=== PATIENT | male | born 1970 | race American Indian/Alaskan Native ===

== ENCOUNTER 2020-07-22 06:34 | Outpatient (REF) | payer BC, SELFPAY ==
[2020-07-22 07:27] LABS: MANUAL DIFF FLAG NO
[2020-07-22 07:38] LABS: Glucose Urine UA NEG (NEG); Leukocyte Esterase Urine NEG (NEG); Nitrite Urine NEG (NEG); PH 5.5 (5.0-8.0); Specific Gravity - Urine >= 1.030 (1.005-1.025); Urine Blood NEG (NEG); Urine Ketones NEG (NEG); Urine Protein NEG (NEG-TRACE)
[2020-07-22 07:44] LABS: Appearance Urine HAZY; Color Urine YELLOW; UACC Culture Trigger NO
[2020-07-22 07:55] LABS: Mucus Urine 2+ /LPF; RBC Urine 0 /HPF (0); Squamous Epithelial Cell Urine TRACE /LPF; WBC Urine 0 /HPF (0-4)
[2020-07-22 07:57] LABS: Alanine Aminotransferase 28 U/L (0-40); Albumin Level 4.2 g/dL (3.5-5.0); Alkaline Phosphatase 85 U/L (39-117); Anion Gap 11 (12-20); Aspartate Amino Transferase 14 U/L (5-37); Bilirubin Total 0.6 mg/dL (0.0-1.0); Blood Urea Nitrogen 17 mg/dL (9-16); Calcium 8.6 mg/dL (8.4-10.2); Carbon Dioxide 24 mmol/L (22-29); Chloride 107 mmol/L (96-108); Cholesterol 164 mg/dL; Estimated Glomerular Filt Rate > 60; Glucose Fasting 133 mg/dL (60-99); HDL Cholesterol 34 mg/dL; LDL Cholesterol Calculated 85 mg/dl; Potassium 4.2 mmol/l (3.3-5.1); Sodium 138 mmol/L (135-145); Total Protein 6.2 g/dL (6.5-8.0); Triglycerides 229 mg/dL
[2020-07-22 07:58] LABS: Basophils Absolute Auto 0.1 X10*3/uL (0.0-0.2); Basophils Percent Auto 0.7 % (0-2); Eosinophils Absolute Auto 0.1 X10*3/uL (0.0-0.4); Eosinophils Percent Auto 1.9 % (0-4); Hemoglobin 15.9 g/dl (14.0-18.0); Imm Gran Abs Auto 0.02 X10*3/uL (0.00-0.03); Imm Gran Pct Auto 0.3 % (0.0-0.4); Lymphocytes Absolute Auto 2.1 X10*3/uL (1.2-4.9); Mean Corpuscular HGB Conc 33.8 g/dl (31.0-36.0); Mean Corpuscular Volume 94.6 fL (80-98); Mean Platelet Volume 9.8 fL (9.4-12.4); Monocytes Absolute Auto 0.7 X10*3/uL (0.1-1.2); Neutrophils Absolute Auto 4.4 X10*3/uL (2.0-8.3); Neutrophils Percent Auto 59.1 % (45-73); Platelet Count 256 X10*3/uL (160-400); Red Blood Count 4.97 X10*6/uL (4.60-5.80); Red Cell Distribution Width 11.9 % (11.0-16.0); White Blood Count 7.4 X10*3/uL (4.8-10.8)
[2020-07-22 08:19] LABS: Vitamin D 25-OH Total 28.8 ng/mL (>30)
[2020-07-22 21:34] LABS: Folate 14.7 ng/mL (> or = 4.0); Vitamin B12 834 pg/mL (200-900)
== END 2020-07-22 06:35 | disposition home or self-care (01) ==
LOC: HO.LAB 06:34
PROVIDERS: PCP Internal Medicine; Visit Provider Internal Medicine
DX: I10 Essential (primary) hypertension (principal); E78.00 Pure hypercholesterolemia, unspecified; R73.01 Impaired fasting glucose; R20.2 Paresthesia of skin; N20.0 Calculus of kidney; E55.9 Vitamin D deficiency, unspecified
CPT/HCPCS: 36415; 80053; 80061; 81001; 81003; 82306; 82607; 82746; 85025

== ENCOUNTER 2020-09-07 08:14 | Outpatient (REF) | payer BC, SELFPAY ==
--- NOTE | 2020-09-07 08:19 | EMG_ITS ---
HISTORY OF PRESENT ILLNESS: This is a 50-year-old man with 6-month history of bilateral upper extremity pain, numbness, and tingling. MEDICATIONS: List of medications not known. PHYSICAL EXAMINATION: On examination, he is alert and oriented with normal intellectual functions. His cranial nerves II through XII are normal. Muscle tone and strength are normal. Deep tendon reflexes symmetrical, 2+ plantar response are flexor. There is mild weakness and atrophy of the thenar eminences. IMPRESSION: Bilateral carpal tunnel syndrome. Nerve conduction EMG: Moderately severe carpal tunnel syndrome bilaterally, slightly worse on the right. Normal EMG of the right C5-T1 innervated muscles except for slight chronic denervated changes in the abductor pollicis brevis consistent with chronic median neuropathy. MD SARAH Calvin/NORRIS / [id number]
== END 2020-09-07 08:15 | disposition home or self-care (01) ==
LOC: HO.NEURO 08:14
PROVIDERS: PCP Internal Medicine; Visit Provider Internal Medicine
DX: R20.2 Paresthesia of skin (principal)
CPT/HCPCS: 95860; 95886; 95913

== ENCOUNTER 2020-11-30 06:53 | Outpatient (REF) | payer BC, SELFPAY ==
[2020-11-30 07:34] LABS: MANUAL DIFF FLAG NO
[2020-11-30 07:36] LABS: Basophils Percent Auto 0.4 % (0-2); Eosinophils Absolute Auto 0.1 X10*3/uL (0.0-0.4); Hematocrit 45.4 % (42-52); Hemoglobin 15.8 g/dl (14.0-18.0); Imm Gran Abs Auto 0.01 X10*3/uL (0.00-0.03); Imm Gran Pct Auto 0.1 % (0.0-0.4); Lymphocytes Absolute Auto 2.2 X10*3/uL (1.2-4.9); Lymphocytes Percent Auto 29.1 % (20-40); Mean Corpuscular HGB Conc 34.8 g/dl (31.0-36.0); Mean Corpuscular Hemoglobin 31.9 pg (27.0-33.0); Mean Corpuscular Volume 91.5 fL (80-98); Mean Platelet Volume 9.5 fL (9.4-12.4); Monocytes Absolute Auto 0.7 X10*3/uL (0.1-1.2); Monocytes Percent Auto 9.4 % (2-11); Neutrophils Absolute Auto 4.6 X10*3/uL (2.0-8.3); Platelet Count 261 X10*3/uL (160-400); Red Blood Count 4.96 X10*6/uL (4.60-5.80); White Blood Count 7.7 X10*3/uL (4.8-10.8)
[2020-11-30 07:56] LABS: Glucose Urine UA NEG (NEG); Leukocyte Esterase Urine NEG (NEG); Nitrite Urine NEG (NEG); PH 5.5 (5.0-8.0); Specific Gravity - Urine >= 1.030 (1.005-1.025); Urine Blood TRACE (NEG); Urine Ketones NEG (NEG); Urine Protein NEG (NEG-TRACE)
[2020-11-30 08:09] LABS: Alanine Aminotransferase 32 U/L (0-40); Albumin Level 4.2 g/dL (3.5-5.0); Alkaline Phosphatase 91 U/L (39-117); Anion Gap 13 (12-20); Aspartate Amino Transferase 18 U/L (5-37); Bilirubin Total 0.8 mg/dL (0.0-1.0); Blood Urea Nitrogen 17 mg/dL (9-16); Calcium 8.6 mg/dL (8.4-10.2); Carbon Dioxide 23 mmol/L (22-29); Chloride 106 mmol/L (96-108); Cholesterol 166 mg/dL; Estimated Glomerular Filt Rate > 60; Glucose Fasting 135 mg/dL (60-99); HDL Cholesterol 36 mg/dL; LDL Cholesterol Calculated 83 mg/dl; Sodium 138 mmol/L (135-145); Total Protein 6.4 g/dL (6.5-8.0); Triglycerides 239 mg/dL
[2020-11-30 08:20] LABS: Appearance Urine CLEAR; Color Urine YELLOW
[2020-11-30 08:25] LABS: Vitamin D 25-OH Total 28.1 ng/mL (>30)
[2020-11-30 09:10] LABS: RBC Urine 0-2 /HPF (0); WBC Urine 0-2 /HPF (0-4)
[2020-11-30 09:47] LABS: Vitamin B12 1476 pg/mL (200-900)
== END 2020-11-30 06:54 | disposition home or self-care (01) ==
LOC: HO.LAB 06:53
PROVIDERS: Visit Provider Internal Medicine
DX: E55.9 Vitamin D deficiency, unspecified (principal); R20.2 Paresthesia of skin; E66.3 Overweight; E78.00 Pure hypercholesterolemia, unspecified; R73.01 Impaired fasting glucose; I10 Essential (primary) hypertension; N20.0 Calculus of kidney; R31.21 Asymptomatic microscopic hematuria
CPT/HCPCS: 36415; 80053; 80061; 81001; 81003; 82306; 82607; 82746; 84443; 85025

== ENCOUNTER 2020-12-13 15:00 | Outpatient (REF) | payer BC, SELFPAY ==
--- NOTE | ~2020-12-13 | MR_ITS ---
EXAMINATION: MR ABDOMEN WITHOUT AND WITH CONTRAST CLINICAL INFORMATION: Follow-up pancreatic cyst COMPARISON: Previous abdominal MRI September 2019 TECHNIQUE: MR abdomen was performed without and with use of 8.5 mL intravenous Gadavist gadolinium contrast. Postcontrast images are performed in multiphase dynamic sequences. Imaging was performed in 3 planes. MRCP sequences were also performed. FINDINGS: LUNG BASES: The visualized lung bases are unremarkable. LIVER, GALLBLADDER, AND BILIARY TREE: The liver is normal in size and shape. There is mild signal loss in the liver on out of phase sequences suggestive of fatty infiltration. No focal liver lesion is seen. The gallbladder is normal. There is no intra or extrahepatic biliary duct dilatation. PANCREAS: There is a 6 x 10 mm cyst in the head of the pancreas. This demonstrates no evidence of enhancement or solid component. This is similar to previous exam. Pancreas is otherwise normal. The pancreas is normal in signal and demonstrates normal enhancement. The main pancreatic duct does not appear dilated. SPLEEN: Normal. ADRENAL GLANDS: Normal. KIDNEYS AND URETERS: There is a small left renal cyst. The kidneys are otherwise unremarkable. GASTROINTESTINAL TRACT: Diverticulosis of the colon. No bowel obstruction. No ascites or fluid collection. ABDOMINAL WALL: No significant hernia is appreciated. LYMPH NODES: No lymphadenopathy. VASCULAR: Unremarkable. OSSEOUS STRUCTURES: Marrow signal normal. There is degenerative disc changes of the thoracic and lumbar spine. MR/MR abdomen wo/w con IMPRESSION: Stable 6 x 10 mm cyst in the head of the pancreas from previous exam. Differential would include a simple pancreatic cyst, pseudocyst and IPMN/intrapapillary mucinous neoplasm. Continued imaging follow-up in one year, either CT or MRI with contrast, should be considered and if finding continues to remain stable, additional follow-up is probably not needed. Mild fatty infiltration of the liver. Small left renal cyst. Diverticulosis of the colon.
== END 2020-12-13 15:01 | disposition home or self-care (01) ==
LOC: HO.MRI 15:00
PROVIDERS: Visit Provider Internal Medicine
DX: K86.2 Cyst of pancreas (principal)
CPT/HCPCS: 74183; A9585

== ENCOUNTER 2020-12-15 10:03 | Outpatient (REF) | payer BC, SELFPAY | END 2020-12-15 10:04 | disposition home or self-care (01) | LOC: HO.LAB 10:03 | PROVIDERS: Visit Provider Internal Medicine | DX: Z20.822 Contact with and (suspected) exposure to COVID-19 (principal) | CPT/HCPCS: 36415; C9803; U0003; U0005 ==

== ENCOUNTER 2021-01-24 09:01 | Outpatient (REF) | payer BC, SELFPAY ==
[2021-01-24 09:24] LABS: COVID-19 Test Negative (Negative)
== END 2021-01-24 09:02 | disposition home or self-care (01) ==
LOC: HO.LAB 09:01
PROVIDERS: Visit Provider Internal Medicine
DX: Z20.822 Contact with and (suspected) exposure to COVID-19 (principal)
CPT/HCPCS: 36415; 87635; C9803

== ENCOUNTER 2021-03-28 07:15 | Outpatient (REF) | payer BC, SELFPAY ==
[2021-03-28 07:52] LABS: MANUAL DIFF FLAG NO
[2021-03-28 07:55] LABS: Basophils Absolute Auto 0.1 X10*3/uL (0.0-0.2); Basophils Percent Auto 0.6 % (0-2); Eosinophils Absolute Auto 0.1 X10*3/uL (0.0-0.4); Eosinophils Percent Auto 1.6 % (0-4); Hematocrit 46.8 % (42-52); Hemoglobin 15.9 g/dl (14.0-18.0); Imm Gran Abs Auto 0.03 X10*3/uL (0.00-0.03); Imm Gran Pct Auto 0.4 % (0.0-0.4); Lymphocytes Absolute Auto 2.1 X10*3/uL (1.2-4.9); Lymphocytes Percent Auto 25.6 % (20-40); Mean Corpuscular Hemoglobin 31.2 pg (27.0-33.0); Mean Corpuscular Volume 91.8 fL (80-98); Mean Platelet Volume 9.4 fL (9.4-12.4); Monocytes Absolute Auto 0.8 X10*3/uL (0.1-1.2); Monocytes Percent Auto 10.2 % (2-11); Neutrophils Percent Auto 61.6 % (45-73); Platelet Count 247 X10*3/uL (160-400); Red Cell Distribution Width 12.2 % (11.0-16.0)
[2021-03-28 08:23] LABS: Alanine Aminotransferase 34 U/L (0-40); Albumin Level 4.3 g/dL (3.5-5.0); Alkaline Phosphatase 92 U/L (39-117); Anion Gap 11 (12-20); Aspartate Amino Transferase 16 U/L (5-37); Bilirubin Total 0.7 mg/dL (0.0-1.0); Blood Urea Nitrogen 18 mg/dL (9-16); Carbon Dioxide 23 mmol/L (22-29); Chloride 109 mmol/L (96-108); Cholesterol 184 mg/dL; Estimated Glomerular Filt Rate > 60; Glucose Fasting 151 mg/dL (60-99); HDL Cholesterol 38 mg/dL; LDL Cholesterol Calculated 90 mg/dl; Potassium 4.3 mmol/L (3.3-5.1); Sodium 139 mmol/L (135-145); Total Protein 6.4 g/dL (6.5-8.0); Triglycerides 280 mg/dL
[2021-03-28 08:41] LABS: Estimated Average Glucose 123 mg/dL; Hemoglobin A1c % 5.9 %
[2021-03-28 08:46] LABS: PSA,Total (Free>4and<10) 0.71 ng/mL (0.00-4.00); TSH reflex Free T4 1.32 uIU/mL (0.32-4.0); Vitamin D 25-OH Total 37.6 ng/mL (>30)
[2021-03-28 08:54] LABS: Glucose Urine UA NEG (NEG); Leukocyte Esterase Urine NEG (NEG); Nitrite Urine NEG (NEG); PH 5.5 (5.0-8.0); Specific Gravity - Urine 1.025 (1.005-1.025); Urine Blood TRACE (NEG); Urine Ketones NEG (NEG); Urine Protein NEG (NEG-TRACE)
[2021-03-28 09:00] LABS: Appearance Urine HAZY; Color Urine YELLOW
[2021-03-28 09:03] LABS: Mucus Urine 3+ /LPF; WBC Urine 0 /HPF (0-4)
== END 2021-03-28 07:16 | disposition home or self-care (01) ==
LOC: HO.LAB 07:15
PROVIDERS: PCP Internal Medicine; Visit Provider Internal Medicine
DX: N20.0 Calculus of kidney (principal); R31.21 Asymptomatic microscopic hematuria; I10 Essential (primary) hypertension; E55.9 Vitamin D deficiency, unspecified; E78.00 Pure hypercholesterolemia, unspecified; E66.3 Overweight; N40.1 Benign prostatic hyperplasia with lower urinary tract symptoms; N13.8 Other obstructive and reflux uropathy; R73.01 Impaired fasting glucose; K86.2 Cyst of pancreas
CPT/HCPCS: 36415; 80053; 80061; 81001; 82306; 83036; 84153; 84443; 85025

== ENCOUNTER 2021-08-03 06:16 | Outpatient (REF) | payer BC, SELFPAY ==
[2021-08-03 07:31] LABS: Hematocrit 46.6 % (42-52); Hemoglobin 15.7 g/dl (14.0-18.0); Mean Corpuscular HGB Conc 33.7 g/dl (31.0-36.0); Mean Corpuscular Hemoglobin 31.2 pg (27.0-33.0); Mean Corpuscular Volume 92.5 fL (80-98); Mean Platelet Volume 9.7 fL (9.4-12.4); Platelet Count 250 X10*3/uL (160-400); Red Blood Count 5.04 X10*6/uL (4.60-5.80); Red Cell Distribution Width 12.7 % (11.0-16.0); White Blood Count 8.8 X10*3/uL (4.8-10.8)
[2021-08-03 07:37] LABS: Appearance Urine CLEAR; Color Urine YELLOW; Glucose Urine UA NEG (NEG); Leukocyte Esterase Urine NEG (NEG); Nitrite Urine NEG (NEG); PH 5.5 (5.0-8.0); Specific Gravity - Urine >= 1.030 (1.005-1.025); UACC Culture Trigger NO; Urine Blood 1+ (NEG); Urine Ketones NEG (NEG); Urine Protein NEG (NEG-TRACE)
[2021-08-03 07:53] LABS: Mucus Urine 2+ /LPF; WBC Urine 0-2 /HPF (0-4)
[2021-08-03 07:55] LABS: Alanine Aminotransferase 21 U/L (0-40); Albumin Level 4.2 g/dL (3.5-5.0); Alkaline Phosphatase 88 U/L (39-117); Anion Gap 10 (12-20); Aspartate Amino Transferase 13 U/L (5-37); Bilirubin Total 0.6 mg/dL (0.0-1.0); Blood Urea Nitrogen 17 mg/dL (9-16); Calcium 9.2 mg/dL (8.4-10.2); Carbon Dioxide 25 mmol/L (22-29); Chloride 108 mmol/L (96-108); Cholesterol 160 mg/dL; Estimated Glomerular Filt Rate > 60; Glucose Fasting 121 mg/dL (60-99); HDL Cholesterol 32 mg/dL; LDL Cholesterol Calculated 96 mg/dl; Sodium 139 mmol/L (135-145); Total Protein 6.3 g/dL (6.5-8.0); Triglycerides 163 mg/dL
[2021-08-03 08:16] LABS: Creatinine Urine 242.08 mg/dL; Microalbum/Creatinine Ratio Ur 3.7 ug/mg cr
[2021-08-03 08:17] LABS: Estimated Average Glucose 123 mg/dL; Hemoglobin A1C 149.5486 umol/L; Hemoglobin A1c % 5.9 %; TSH reflex Free T4 1.92 uIU/mL (0.32-4.0)
== END 2021-08-03 06:17 | disposition home or self-care (01) ==
LOC: HO.LAB 06:16
PROVIDERS: PCP Internal Medicine; Visit Provider Physician Assistant
DX: I10 Essential (primary) hypertension (principal); R73.01 Impaired fasting glucose; E78.00 Pure hypercholesterolemia, unspecified
CPT/HCPCS: 36415; 80053; 80061; 81001; 82043; 83036; 84443; 85027

== ENCOUNTER → 2021-11-06 07:51 | Outpatient (BNVA) | payer BC, SELFPAY | PROVIDERS: PCP Internal Medicine; Visit Provider Physician Assistant ==

== ENCOUNTER 2021-11-10 22:17 | Emergency (ER) | payer BC, SELFPAY ==
--- NOTE | ~2021-11-10 | CT_ITS ---
EXAMINATION: CT HEAD WITHOUT CONTRAST CLINICAL INFORMATION: Dizziness for 3 days COMPARISON: 02/09/2009 TECHNIQUE: Contiguous axial imaging was performed from the skull base to vertex without intravenous contrast. This CT examination was performed using dose optimization techniques as appropriate, variously including the following: * Automated exposure control * Adjustment of mA and/or kV according to patient size (this includes techniques or standardized protocols for targeted exams where dose is matched to indication/reason for exam; i.e. extremities or head) Use of iterative reconstruction technique DLP: 665 mGy-cm. FINDINGS: There is no evidence of acute intracranial hemorrhage or territorial infarction. No abnormal mass effect or midline shift is seen. [place] to white matter differentiation is well preserved. No extra-axial fluid collections are identified. No hydrocephalus. No significant volume loss. There is no abnormal attenuation within the brain parenchyma. The osseous structures and soft tissues are normal. The mastoid air cells and visualized portions of the paranasal sinuses are well aerated. CT/CT head/brain wo con IMPRESSION: No acute intracranial pathology.
[2021-11-10 22:20] VITALS: BP 135/89; PULSE 97; RESP 16; TEMP 36.7; O2SAT 96; BMI 28.8
--- NOTE | 2021-11-10 22:22 | ECG_ITS ---
Test Reason : DIZZINESS Blood Pressure : / mmHG Vent. 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
[2021-11-10 22:40] LABS: MANUAL DIFF FLAG NO
[2021-11-10 22:48] LABS: Basophils Absolute Auto 0.1 X10*3/uL (0.0-0.2); Basophils Percent Auto 0.5 % (0-2); Eosinophils Absolute Auto 0.2 X10*3/uL (0.0-0.4); Eosinophils Percent Auto 1.9 % (0-4); Hematocrit 48.8 % (42.0-52.0); Hemoglobin 16.7 g/dl (14.0-18.0); Imm Gran Abs Auto 0.03 X10*3/uL (0.00-0.03); Imm Gran Pct Auto 0.3 % (0.0-0.4); Lymphocytes Absolute Auto 3.2 X10*3/uL (1.2-4.9); Lymphocytes Percent Auto 28.8 % (20-40); Mean Corpuscular HGB Conc 34.2 g/dl (31.0-36.0); Mean Corpuscular Hemoglobin 31.9 pg (27.0-33.0); Mean Corpuscular Volume 93.3 fL (80.0-98.0); Mean Platelet Volume 9.6 fL (9.4-12.4); Monocytes Absolute Auto 1.1 X10*3/uL (0.1-1.2); Monocytes Percent Auto 9.7 % (2-11); Neutrophils Absolute Auto 6.4 x10*3/uL (2.0-8.3); Neutrophils Percent Auto 58.8 % (45-73); Platelet Count 278 X10*3/uL (160-400); Red Blood Count 5.23 X10*6/uL (4.60-5.80); Red Cell Distribution Width 12.1 % (11.0-16.0); White Blood Count 10.9 X10*3/uL (4.8-10.8)
[2021-11-10 23:00] LABS: Anion Gap 15 (12-20); Blood Urea Nitrogen 13 mg/dL (9-16); Calcium 9.4 mg/dL (8.4-10.2); Carbon Dioxide 22 mmol/L (22-29); Chloride 107 mmol/L (96-108); Creatinine Clr Calc Pharmacy 115.3; Estimated Glomerular Filt Rate > 60; Glucose Random 143 mg/dL (60-115); Potassium 4.1 mmol/L (3.3-5.1); Sodium 140 mmol/L (135-145)
[2021-11-10 23:08] LABS: Troponin-I High Sensitivity < 3.5 ng/L (<3.5-35.0)
--- NOTE | 2021-11-11 00:40 | ED_ITS ---
HPI - Dizziness General Chief Complaint: Dizziness Stated Complaint: dizzy ?blood pressure Time Seen by Provider: 11/11/21 00:40 Source: patient Mode of arrival: ambulatory Limitations: no limitations History of Present Illness HPI Narrative: checked BP at home - compliant with medications wrist cuff 200/110s elicited complaint: dizziness and lightheadedness Onset (ago): day(s) (3) Timing: intermittent Severity: mild Description: lightheadedness Context: other (states it just comes and goes) History of similar symptoms: Yes Exacerbating factors: nothing Relieving factors: nothing Associated symptoms: denies other symptoms Related Data Home Medications Medication Instructions Recorded Confirmed zolpidem 10 mg tablet 10 mg PO BEDTIME PRN 07/25/20 08/11/21 Previous Rx's Medication Instructions Recorded meclizine 25 mg tablet 25 mg PO TID PRN 30 Days #90 tab 01/27/21 carisoprodol 350 mg tablet 350 mg PO BEDTIME PRN 30 Days #30 04/05/21 tab varenicline 0.5 mg (11)-1 mg (42) See Rx Instructions PO PER PKG DIR 08/11/21 tablets in a dose pack #53 ea simvastatin 40 mg tablet 40 mg PO BEDTIME #30 tab 09/03/21 tamsulosin 0.4 mg capsule 0.4 mg PO BEDTIME #30 cap 09/03/21 lisinopril 5 mg tablet 5 mg PO DAILY #30 tab 10/04/21 bisacodyl 5 mg tablet,delayed 10 mg PO ONCE 1 Days #2 tab 11/06/21 release (Dulcolax (bisacodyl)) omeprazole 20 mg capsule,delayed 20 mg PO DAILY #30 cap 11/06/21 release polyethylene glycol 3350 17 238 g PO ONCE 1 Days #238 g 11/06/21 gram/dose oral powder (Miralax) meclizine 50 mg tablet (Antivert) 50 mg PO BID PRN #20 tab 11/11/21 Allergies Allergy/AdvReac Type Severity Reaction Status Date / Time No Known Allergies Allergy Verified 11/10/21 22:22 Review of Systems Verdana 4l Review of Systems: Verdana 4d Verdana 4d Constitutional : No Weight loss, No Fever, No Chills, No Fatigue, No Malaise ENT/Mouth : No sore throat, No Rhinorrhea Eyes: No Eye Pain, No Swelling, No Redness Cardiovascular : No Chest Pain, No SOB, No Dyspnea on Exertion, No Orthopnea,, No Edema, No Palpitations Respiratory : No Cough, No Sputum, No Wheezing Gastrointestinal : No Nausea, No Vomiting, No Diarrhea, No Constipation, No a bdominal Pain, No Hematochezia, No Melena Genitourinary : No Dysuria, No Urinary Frequency, No Hematuria, Musculoskeletal : No joint pain, No Myalgias, No Joint Swelling Skin : No Skin Lesions, No rash Neuro : No Weakness, No Numbness, pos Dizziness, No Headache Psych : No Anxiety/Panic, No Depression Heme/Lymph: No Bruising, No Bleeding,No Lymphadenopathy Endocrine : No Polyuria, No Polydipsia All other systems reviewed and are negative [facility] Past Medical History Attestation statement: The following information was validated with the patient. Medical History Acid reflux Asymptomatic microscopic hematuria Benign prostatic hyperplasia with urinary obstruction Carpal tunnel syndrome on both sides Cervical disc disease Essential hypertension Impaired fasting glucose Overweight (BMI 25.0-29.9) Pancreatic cyst Paresthesia of both hands Primary insomnia Pure hypercholesterolemia Renal calculi Vitamin D deficiency Surgical History History of esophagogastroduodenoscopy (EGD) History of surgery on right wrist Status post excision of lipoma Tonsillar cyst Family History Family History Father Myocardial infarction Diabetes Hypertension Mother Hypertension Brother Hypertension Social History Social History Housing: House Alcohol intake: current Alcohol intake frequency: a few times a month Patient Tobacco Use Status: Former Tobacco user e-Cigarette/Vaping Use: Never Used Second Hand Smoke Exposure: Yes Advance Directives: No service: No Current occupational status: employed 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 Oriented X3. No acute distress. Eyes: Pupils equal, round and reactive to light. ENT: Pharynx normal. normal TMs Neck: Normal inspection. Neck supple. CVS: Normal heart rate and rhythm. Pulses normal. Respiratory: No respiratory distress. Breath sounds normal. Abdomen: Soft and nontender. Skin: Skin warm and dry. Normal skin color. Normal skin turgor. Extremities: No lower extremity edema. No calf ttp Neuro: Oriented X 3. No motor deficit. No sensory deficit. CN2-12 intact, no ataxia MDM - Dizziness MDM Narrative Medical decision making narrative: 51 yo male with hx of HTN, GERD, HLD, vertigo at this time c/o intermittent mild dizziness - no ataxia no headaches no signs of neuro symptoms, doubt posterior stroke/ACS or PE - BP normal here will obtain basic labs, CT head, start on meclizine Lab Data Result diagrams: 11/10/21 22:31 11/10/21 22:31 Labs: Lab Results 11/10/21 11/10/21 11/10/21 Range/Units 22:31 22:31 22:31 WBC 10.9 H (4.8-10.8) X10*3/uL RBC 5.23 (4.60-5.80) X10*6/uL Hgb 16.7 (14.0-18.0) g/dl Hct 48.8 (42.0-52.0) % MCV 93.3 (80.0-98.0) fL MCH 31.9 (27.0-33.0) pg MCHC 34.2 (31.0-36.0) g/dl RDW 12.1 (11.0-16.0) % Plt Count 278 (160-400) X10*3/uL MPV 9.6 (9.4-12.4) fL Immature Gran % (Auto) 0.3 (0.0-0.4) % Neut % (Auto) 58.8 (45-73) % Lymph % (Auto) 28.8 (20-40) % Davie % (Auto) 9.7 (2-11) % Eos % (Auto) 1.9 (0-4) % Baso % (Auto) 0.5 (0-2) % Lymph # (Auto) 3.2 (1.2-4.9) X10*3/uL Davie # (Auto) 1.1 (0.1-1.2) X10*3/uL Eos # (Auto) 0.2 (0.0-0.4) X10*3/uL Baso # (Auto) 0.1 (0.0-0.2) X10*3/uL Abs Immat Gran (auto) 0.03 (0.00-0.03) X10*3/uL Absolute Neuts (auto) 6.4 (2.0-8.3) x10*3/uL Absolute Nucleated RBC 0.000 (0.0-0.012) X10*3/uL Nucleated RBC % (auto) 0.0 (0.0-0.2) /100WBC Sodium 140 (135-145) mmol/L Potassium 4.1 (3.3-5.1) mmol/L Chloride 107 (96-108) mmol/L Carbon Dioxide 22 (22-29) mmol/L Anion Gap 15 (12-20) BUN 13 (9-16) mg/dL Creatinine 0.80 (0.5-1.4) mg/dL Estim Creat Clear Calc 115.3 Estimated GFR > 60 Random Glucose 143 H (60-115) mg/dL Calcium 9.4 (8.4-10.2) mg/dL Troponin I High Sens < 3.5 (<3.5-35.0) ng/L ECG Data Attestation: I personally reviewed and interpreted this ECG as follows: ECG interpretation date: 11/11/21 ECG interpretation time: 00:44 Interpretation: Rate: 92 Rhythm: NSR Gardners: normal Normal P waves. Normal DIANE. Normal QRS complex. ST T wave : no VALDEZ, normal qTC: normal prior studies: no acute ischemia, old inf infarct noted in 2010 The study has been interpreted contemporaneously by me. . Discharge Plan Discharge Clinical Impression: Dizziness Patient Disposition: Home, Self-Care Instructions: Dizziness (ED) Additional Instructions: return to ED for any worsening symptoms or concerns Prescriptions: New Antivert 50 mg tablet 50 mg PO BID PRN (Reason: dizziness) Qty: 20 0RF No Action meclizine 25 mg tablet 25 mg PO TID PRN (Reason: dizziness) 30 Days Qty: 90 0RF simvastatin 40 mg tablet 40 mg PO BEDTIME Qty: 30 2RF tamsulosin 0.4 mg capsule 0.4 mg PO BEDTIME Qty: 30 3RF lisinopril 5 mg tablet 5 mg PO DAILY Qty: 30 3RF zolpidem 10 mg tablet 10 mg PO BEDTIME PRN0RF carisoprodol 350 mg tablet 350 mg PO BEDTIME PRN (Reason: muscle pain) 30 Days Qty: 30 0RF Chantix Starting Month Box 0.5 mg (11)- 1 mg (42) tablets,dose pack See Rx Instructions PO PER PKG DIR Qty: 53 0RF Rx Instructions: PO PER PKG DIR polyethylene glycol 3350 [Miralax] 17 gram/dose powder 238 g PO ONCE 1 Days Qty: 238 0RF Rx Instructions: Take as directed by mouth the day before your procedure. bisacodyl [Dulcolax (bisacodyl)] 5 mg tablet,delayed release (DR/EC) 10 mg PO ONCE 1 Days Qty: 2 0RF Rx Instructions: Take 2 tablets by mouth at 12:00pm the day before your procedure. omeprazole 20 mg capsule,delayed release(DR/EC) 20 mg PO DAILY Qty: 30 5RF Referrals: Tucker Negron MD [Primary Care Provider] - 3 days (if not better) Stand Alone Forms: Work/School Release
[2021-11-11 00:54] VITALS: BP 127/84; PULSE 89; RESP 16; O2SAT 98
[2021-11-11 01:17] LABS: COVID-19 Test Negative (Negative)
== END 2021-11-11 01:31 | disposition home or self-care (01) ==
PROVIDERS: Emergency Provider Emergency Medicine; PCP Internal Medicine
DX: R42 Dizziness and giddiness (principal); Z20.822 Contact with and (suspected) exposure to COVID-19; I10 Essential (primary) hypertension; E78.00 Pure hypercholesterolemia, unspecified; Z79.02 Long term (current) use of antithrombotics/antiplatelets; Z79.899 Other long term (current) drug therapy
CPT/HCPCS: 36415; 70450; 80048; 84484; 85025; 87635; 93005; 99284

== ENCOUNTER 2021-12-26 09:00 | Outpatient (RCR) | payer BC, SELFPAY ==
[2021-12-21 09:07] VITALS: BP 140/80; PULSE 56; O2SAT 95
== END 2022-04-27 13:56 | disposition home or self-care (01) ==
LOC: HO.PTWFD 09:00
PROVIDERS: PCP Internal Medicine; Visit Provider Family Medicine
DX: R42 Dizziness and giddiness (principal)
CPT/HCPCS: 95992; 97161; 97535

== ENCOUNTER 2022-01-25 15:00 | Outpatient (REF) | payer BC, SELFPAY ==
--- NOTE | ~2022-01-25 | MR_ITS ---
EXAMINATION: MR ABDOMEN WITHOUT AND WITH CONTRAST CLINICAL INFORMATION: Follow-up pancreatic cyst COMPARISON: Previous MRI most recent December [address] of the abdomen and pelvis September 2019 TECHNIQUE: MR abdomen was performed without and with use of 9 mL intravenous Gadavist gadolinium contrast. Postcontrast images are performed in multiphase dynamic sequences. Imaging was performed in 3 planes. FINDINGS: LUNG BASES: The visualized lung bases are unremarkable. LIVER, GALLBLADDER, AND BILIARY TREE: The liver is normal in size, shape and contour. There is a signal loss seen in the liver on out of phase sequences suggestive of mild fatty infiltration. No focal liver lesion. Normal-appearing gallbladder. Normal intra and extrahepatic bile ducts. PANCREAS: There is a 6 x 10 mm lesion in the head of the pancreas. This is low signal on T1-weighted sequences, high signal on T2-weighted images demonstrate no evidence of enhancement compatible with a cyst. No solid component, wall thickening or septation is seen. This abuts the main pancreatic duct and could communicate with it. This is unchanged from previous exams. The pancreas is otherwise normal. The main pancreatic duct is normal. SPLEEN: Normal. ADRENAL GLANDS: Normal. KIDNEYS AND URETERS: The kidneys are normal in size, shape, and enhance symmetrically. No hydronephrosis. There may be a tiny cyst in the upper pole of the left kidney. No perinephric stranding. GASTROINTESTINAL TRACT: There is diverticulosis of the colon. No bowel obstruction. No ascites or fluid collection. ABDOMINAL WALL: There is a small umbilical hernia containing fat. LYMPH NODES: No lymphadenopathy. VASCULAR: Unremarkable. OSSEOUS STRUCTURES: Marrow signal normal. MR/MR abdomen wo/w con IMPRESSION: Stable 6 x 10 mm cyst in the head of the pancreas from previous exams.
== END 2022-01-25 15:01 | disposition home or self-care (01) ==
LOC: HO.MRI 15:00
PROVIDERS: Visit Provider Nurse Practitioner Family
DX: K86.2 Cyst of pancreas (principal)
CPT/HCPCS: 74183; A9585

== ENCOUNTER 2022-02-20 07:13 | Day surgery (SDC) | payer BC, SELFPAY ==
[2022-02-13 14:56] VITALS: BMI 29.1
--- NOTE | 2022-02-19 12:35 | P.CONAN_ITS ---
Documented by User: Angelita Hicks NP 02/19/22 12:37 HPI - Anesthesia Eval Consult details Narrative: 51yo M for Upper Endoscopy and Colonoscopy [facility] Active Problems Active Problems: All Active Problems (Updated 11/12/21 @ 00:00 by Nicki Vela) Colon cancer screening (Acute) Vertigo (Acute) Acid reflux (Acute) Benign prostatic hyperplasia with urinary obstruction (Acute) Carpal tunnel syndrome on both sides (Acute) Overweight (BMI 25.0-29.9) (Acute) Primary insomnia (Acute) Paresthesia of both hands (Acute) Vitamin D deficiency (Acute) Cervical disc disease (Acute) Renal calculi (Acute) Asymptomatic microscopic hematuria (Acute) Pancreatic cyst (Acute) Impaired fasting glucose (Acute) Pure hypercholesterolemia (Acute) Essential hypertension (Acute) Past Medical History Medical History Acid reflux Asymptomatic microscopic hematuria Benign prostatic hyperplasia with urinary obstruction Carpal tunnel syndrome on both sides Cervical disc disease Essential hypertension Impaired fasting glucose Overweight (BMI 25.0-29.9) Pancreatic cyst Paresthesia of both hands Primary insomnia Pure hypercholesterolemia Renal calculi Vitamin D deficiency Family History Family History Father Myocardial infarction Diabetes Hypertension Mother Hypertension Brother Hypertension Surgical History Surgical History H/O colonoscopy History of esophagogastroduodenoscopy (EGD) History of surgery on right wrist Status post excision of lipoma Tonsillar cyst Social History Social History Housing: House Are you a primary adult day care worker to a significant other at home: No Do you presently have visiting nurse or other home services: No Alcohol intake: current Alcohol intake frequency: a few times a month Patient Tobacco Use Status: Current everyday Tobacco user Tobacco use type: Cigarette Cigarette Packs Per Day: 0.75 Cigarettes Per Day: 15.0 Smoked in Last 30 Days: Yes e-Cigarette/Vaping Use: Never Used Patient Interested in Nicotine Replacement: No Patient Given Instructions on How to Stop Smoking: No Second Hand Smoke Exposure: No Use of substances other than those prescribed or required for medical reasons: No Have you been hit, kicked, punched, or otherwise hurt by someone within the past year? 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 Meds Allergies Allergy/AdvReac Type Severity Reaction Status Date / Time No Known Allergies Allergy Verified 12/20/21 09:45 Home Medications Medication Instructions Recorded Confirmed Last Taken Type zolpidem 10 mg tablet 10 mg PO BEDTIME PRN 07/25/20 02/13/22 Unknown History Exam Exam Date and Time: February 19, 2022 1235 Height,Weight and Vital Signs: Height 5 ft 7 in Weight 84.368 kg Pertinent Lab Results Pertinent Lab Results: Laboratory Tests 11/10/21 11/10/21 22:31 22:31 WBC 10.9 H Hgb 16.7 Hct 48.8 Plt Count 278 Sodium 140 Potassium 4.1 Chloride 107 Carbon Dioxide 22 BUN 13 Creatinine 0.80 Narrative Narrative: EKG 10/2021 Vent. Rate : 092 BPM ? ? Atrial Rate : 092 BPM ?? P-R Int : 146 ms? QRS Dur : 104 ms ? ? QT Int : 346 ms ? ? ? P-R-T Axes : 029 013 005 degrees ?? QTc Int : 427 ms ? 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-2011) Abnormal ECG When compared with ECG of 07-OCT-2011 09:44, Questionable change in initial forces of Inferior leads Assessment and Plan Assessment Anesthesia Assessment: Chart Reviewed Documented by User: Lisbeth Peguero MD 02/20/22 08:25 [facility] Past Medical History Medical History Acid reflux Asymptomatic microscopic hematuria Benign prostatic hyperplasia with urinary obstruction Carpal tunnel syndrome on both sides Cervical disc disease Essential hypertension Impaired fasting glucose Overweight (BMI 25.0-29.9) Pancreatic cyst Paresthesia of both hands Primary insomnia Pure hypercholesterolemia Renal calculi Vitamin D deficiency Family History Family History Father Myocardial infarction Diabetes Hypertension Mother Hypertension Brother Hypertension Surgical History Surgical History H/O colonoscopy History of esophagogastroduodenoscopy (EGD) History of surgery on right wrist Status post excision of lipoma Tonsillar cyst History of Problems with Anesthesia: No Social History Social History Housing: House Are you a primary adult day care worker to a significant other at home: No Do you presently have visiting nurse or other home services: No Alcohol intake: current Alcohol intake frequency: a few times a month Patient Tobacco Use Status: Current everyday Tobacco user Tobacco use type: Cigarette Cigarette Packs Per Day: 0.75 Cigarettes Per Day: 15.0 Smoked in Last 30 Days: Yes e-Cigarette/Vaping Use: Never Used Patient Interested in Nicotine Replacement: No Patient Given Instructions on How to Stop Smoking: No Second Hand Smoke Exposure: No Use of substances other than those prescribed or required for medical reasons: No Have you been hit, kicked, punched, or otherwise hurt by someone within the past year? 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 Meds Allergies Allergy/AdvReac Type Severity Reaction Status Date / Time No Known Allergies Allergy Verified 12/20/21 09:45 Home Medications Medication Instructions Recorded Confirmed Last Taken Type zolpidem 10 mg tablet 10 mg PO BEDTIME PRN 07/25/20 02/13/22 Unknown History Exam Airway Mallampati Class: III TM Dist: >3cm Neck ROM: Full Loose/Missing/Broken Teeth: No Heart: RRR Lungs: CTA Assessment and Plan Assessment Anesthesia Assessment: Anesthesia Plan Discussed Final Anesthetic Review History of Problems with Anesthesia: No NPO: Yes ASA Class: III Final Preanesthetic Review: Meds/Allgs Chart Reviewed, Consent Obtained/Reviewed and Anes Risks/Benef Reviewed Patient Risk: Intermediate Procedure Risk: Intermediate Anesthetic Plan Anesthetic Plan: MAC: Disposition: Standard PACU
[2022-02-20 07:28] VITALS: BP 121/80; PULSE 86; RESP 18; TEMP 36.3; O2SAT 96; BMI 29.1
[2022-02-20] MEDS: Lactated Ringers 1,000 ML 100 ML IVCONT (07:43)
--- NOTE | 2022-02-20 08:32 | MHC.SHP ---
Pre-Procedural Eval Section A Date of Service: 02/20/22 Section B Chief Complaint: screening,reflux Relevant Family History (Specify if Yes): No Relevant Social History: Tobacco Use Present Medications: see Short Stay Collaborative assessment Medical History: Significant History (Acid reflux Asymptomatic microscopic hematuria Benign prostatic hyperplasia with urinary obstruction Carpal tunnel syndrome on both sides Cervical disc disease Essential hypertension Impaired fasting glucose Overweight (BMI 25.0-29.9) Pancreatic cyst Paresthesia of both hands Primary insomnia Pure h) History of Previous Operations: Relevant previous surgery/procedure and date(s) (H/O colonoscopy History of esophagogastroduodenoscopy (EGD) History of surgery on right wrist Status post excision of lipoma Tonsillar cyst) Allergies: Allergies Allergy/AdvReac Type Severity Reaction Status Date / Time No Known Allergies Allergy Verified 12/20/21 09:45 Review of Systems Sugical H&P ROS: Negative: Constitution, Cardiovascular, Respiratory, Neurological, Psychiatric, Hem-Onc, Allergic/Immunologic, Gastrointestinal, Genitourinary, Musculoskeletal, Integumentary, Endocrine and Eyes/Ears/Nose/Throat Exam Surgical H&P Exam: Normal: HEENT, Normal: Heart, Normal: Lungs, Normal: Extremities, Normal: Abdomen, Normal: Skin and Normal: Neurological Plan Diagnosis/Plan: Unchanged I have reviewed the history and physical and performed a pertinent physical examination on my patient. No changes have occurred unless specified.
--- NOTE | 2022-02-20 09:02 | P.BOP_ITS ---
Brief Operative Note Date of Service: 02/20/22 Pre-op diagnosis: GERD, colon screening Post-op diagnosis: same Procedure: see op note Surgeon: Que Engel MD Anesthesia: MAC Was an Actuarial Technician used for this Procedure?: No Estimated blood loss (mL): 0 Condition: stable Disposition: PACU
--- NOTE | 2022-02-20 09:03 | W.PM.OPN ---
Operative Note Operative Note Date of Service: 02/20/22 Narrative: Operative Information Procedure Description: EGD, Colonoscopy Indication: GERD, colon screening Anesthesia: MAC FLEXIBLE TRANSORAL UPPER GASTROINTESTINAL ENDOSCOPY AND COLONOSCOPY PROCEDURE NOTE UPPER ENDOSCOPY Consent: Indications for the procedure and potential complications of bleeding, perforation, reaction to medications and missed diagnosis were discussed with the patient and informed consent was obtained. Instrument: Olympus GIF H 190 J mid size upper endoscope Monitoring: Vital signs and clinical assessment, continuous EKG monitoring, Pulse oximetry, Carbon Dioxide monitoring and blood pressure monitoring were done throughout the procedure. Procedure: The patient was placed in the left lateral decubitis position and pre-procedure medications were administered and a bite block was placed. The endoscope was inserted into the mouth and advanced under direct vision to the third part of duodenum. A careful inspection was made as the upper endoscope was withdrawn including a retroflexed examination of the proximal stomach; Findings and interventions are described below. Findings: Larynx:normal Esophagus: GE junction at 40 cm, diaphragm hiatus at 40 cm, irregular z line, possible short segment barretts, bx taken Stomach: Patchy erythema. Biopsies were obtained. Grade 3 flap valve on retroflexed examination of the cardia consistent with lax LES Duodenum: Normal bulb and descending duodenum, Intervention: Biopsies as noted above COLONOSCOPY Instrument: Olympus variable stiffness pediatric scope 190L Colonoscopy Monitoring: Vital signs and clinical assessment, continuous EKG monitoring, Pulse oximetry, Carbon Dioxide monitoring and blood pressure monitoring were done throughout the procedure. Colon withdrawal time was 8 minutes. Procedure: The patient was placed in the left lateral decubitis position and pre-procedure medications were administered. After a digital rectal examination of the ano-rectum, the video colonoscope was inserted into the rectum and advanced through the colon to the cecum/TI. The colonoscope was slowly withdrawn in a retrograde panoramic fashion and the colon mucosa was carefully examined including a retroflexed view of the rectum. Findings and interventions are described below. Procedure Difficulty: easy Findings: Severe corral diverticulosis with wide mouthed tics thru out colon Terminal Ileum-normal Cecum:normal Ascending Colon: x 1 sessile polyp 6-7 mm removed with cold forceps, x 1 sessile polyp 10 mm removed with cold snare Transverse Colon - Patchy diverticulosis Descending Colon: diverticulosis, severe Sigmoid Colon: severe diverticulosis with luminal narrowing and hypertrophy Rectum: Retroflexion with small internal hemorrhoids, grade I with skin tags Anorectum - normal Colon preparation: [place] Bowel Preparation Scale Right colon; 2 Transverse colon: 3 Left colon; 3 (0 = Unprepared colon segment with mucosa not seen due to solid stool that cannot be cleared. 1 = Portion of mucosa of the colon segment seen, but other areas of the colon segment not well seen due to staining, residual stool and/or opaque liquid. 2 = Minor amount of residual staining, small fragments of stool and/or opaque liquid, but mucosa of colon segment seen well. 3 = Entire mucosa of colon segment seen well with no residual staining, small fragments of stool or opaque liquid) Impression and Post Procedure Diagnosis: Endoscopy Findings: lax LES gastritis possible barretts Colonoscopy Findings: polyps internal hemorrhoids diverticular disease Plan: Await Pathology results Repeat Colonoscopy in 5 years if adenomatous polyps, 10 yrs if benign or earlier if clinically indicated High fiber diet leaflet avoid straining at stool, epsom salts and sitz bath, anusol supps or cream Reflux precautions Above findings were reviewed with the patient and relevant handouts were provided if indicated.
[2022-02-20 09:07] VITALS: BP 100/68; PULSE 92; RESP 18; TEMP 36.2; O2SAT 95
[2022-02-20 09:22] VITALS: BP 106/78; PULSE 80; RESP 18; TEMP 36.2; O2SAT 97
== END 2022-02-20 09:53 ==
LOC: HO.SSS 07:13
PROVIDERS: PCP Internal Medicine; Visit Provider Internal Medicine Gastroenterology
PROC: (CPT 45385; principal; 2022-02-20 08:30)
DX: Z12.11 Encounter for screening for malignant neoplasm of colon (principal); D12.2 Benign neoplasm of ascending colon; K57.30 Diverticulosis of large intestine without perforation or abscess without bleeding; K64.0 First degree hemorrhoids; K64.4 Residual hemorrhoidal skin tags; K21.9 Gastro-esophageal reflux disease without esophagitis; K22.4 Dyskinesia of esophagus; K29.50 Unspecified chronic gastritis without bleeding; K44.9 Diaphragmatic hernia without obstruction or gangrene; K86.2 Cyst of pancreas; I10 Essential (primary) hypertension; E78.00 Pure hypercholesterolemia, unspecified; E55.9 Vitamin D deficiency, unspecified; R73.01 Impaired fasting glucose; E66.3 Overweight; Z68.29 Body mass index [BMI] 29.0-29.9, adult; Z79.899 Other long term (current) drug therapy; F17.210 Nicotine dependence, cigarettes, uncomplicated; Z87.442 Personal history of urinary calculi; Z87.891 Personal history of nicotine dependence
CPT/HCPCS: 45385; 45380; 43239; 88305; 88342

== ENCOUNTER → 2022-03-05 08:26 | Outpatient (BNVA) | payer BC, SELFPAY | PROVIDERS: PCP Internal Medicine; Referring Provider Internal Medicine; Visit Provider Physician Assistant | DX: K21.9 Gastro-esophageal reflux disease without esophagitis (principal) ==

== ENCOUNTER 2022-03-16 08:55 | Outpatient (REF) | payer BC, SELFPAY ==
[2022-03-17 15:08] LABS: H Pylori Breath Test Negative (Negative)
== END 2022-03-16 08:56 | disposition home or self-care (01) ==
LOC: HO.LNP 08:55
PROVIDERS: Physician Assistant; PCP Internal Medicine; Visit Provider Internal Medicine Gastroenterology
DX: K29.70 Gastritis, unspecified, without bleeding (principal)
CPT/HCPCS: 83013

== ENCOUNTER 2022-06-01 06:58 | Outpatient (REF) | payer BC, SELFPAY ==
[2022-06-01 09:23] LABS: Appearance Urine Clear; Color Urine Yellow; Glucose Urine UA Negative (Negative); Leukocyte Esterase Urine Negative (Negative); Nitrite Urine Negative (Negative); Specific Gravity - Urine >= 1.030 (1.005-1.025); Urine Blood Trace (Negative); Urine Ketones Negative (Negative); Urine Protein Negative (Neg-Trace)
[2022-06-01 09:35] LABS: RBC Urine 0-2 /HPF (0-2); WBC Urine 0-5 /HPF (0-5)
[2022-06-01 09:36] LABS: Calcium Oxalate Crystals Urine Present; Hyaline Casts Urine 0-2 /LPF (0-2)
[2022-06-01 09:37] LABS: Bacteria Urine None Seen (None Seen); Squamous Epithelial Cell Urine 0-2 /HPF (0-2)
== END 2022-06-01 06:59 | disposition home or self-care (01) ==
LOC: HO.LAB 06:58
PROVIDERS: PCP Internal Medicine; Visit Provider Internal Medicine
DX: R31.21 Asymptomatic microscopic hematuria (principal); I10 Essential (primary) hypertension; N20.0 Calculus of kidney
CPT/HCPCS: 81001

== ENCOUNTER 2022-10-19 07:39 | Outpatient (REF) | payer BC, SELFPAY ==
[2022-10-19 08:32] LABS: COVID-19 Test Negative (Negative); IDNOW Serial# 16C4AD1C
== END 2022-10-19 07:40 | disposition home or self-care (01) ==
LOC: HO.LAB 07:39
PROVIDERS: Visit Provider Internal Medicine
DX: Z20.822 Contact with and (suspected) exposure to COVID-19 (principal)
CPT/HCPCS: 87635; C9803

== ENCOUNTER 2022-10-22 06:32 | Outpatient (REF) | payer BC, SELFPAY ==
[2022-10-22 06:41] LABS: MANUAL DIFF FLAG NO
[2022-10-22 07:42] LABS: Basophils Absolute Auto 0.1 X10*3/uL (0.0-0.2); Basophils Percent Auto 0.5 % (0-2); Eosinophils Absolute Auto 0.2 X10*3/uL (0.0-0.4); Eosinophils Percent Auto 1.7 % (0-4); Hematocrit 50.1 % (42.0-52.0); Hemoglobin 17.3 g/dl (14.0-18.0); Imm Gran Abs Auto 0.04 X10*3/uL (0.00-0.03); Imm Gran Pct Auto 0.4 % (0.0-0.4); Lymphocytes Absolute Auto 2.9 X10*3/uL (1.2-4.9); Lymphocytes Percent Auto 30.9 % (20-40); Mean Corpuscular HGB Conc 34.5 g/dl (31.0-36.0); Mean Corpuscular Hemoglobin 31.9 pg (27.0-33.0); Mean Corpuscular Volume 92.3 fL (80.0-98.0); Mean Platelet Volume 9.7 fL (9.4-12.4); Monocytes Absolute Auto 0.9 X10*3/uL (0.1-1.2); Monocytes Percent Auto 9.2 % (2-11); Neutrophils Absolute Auto 5.3 x10*3/uL (2.0-8.3); Neutrophils Percent Auto 57.3 % (45-73); Platelet Count 265 X10*3/uL (160-400); Red Blood Count 5.43 X10*6/uL (4.60-5.80); Red Cell Distribution Width 12.2 % (11.0-16.0); White Blood Count 9.2 X10*3/uL (4.8-10.8)
[2022-10-22 07:53] LABS: Appearance Urine Clear; Color Urine Dark Yellow; Glucose Urine UA Negative (Negative); Leukocyte Esterase Urine Negative (Negative); Nitrite Urine Negative (Negative); Specific Gravity - Urine 1.025 (1.005-1.025); Urine Blood Negative (Negative); Urine Ketones Trace mg/dL (Negative); Urine Protein Negative (Neg-Trace)
[2022-10-22 08:16] LABS: Estimated Average Glucose 120 mg/dL; Hemoglobin A1c % 5.8 %
[2022-10-22 08:17] LABS: Alanine Aminotransferase 38 U/L (0-40); Albumin Level 4.5 g/dL (3.5-5.0); Alkaline Phosphatase 107 U/L (39-117); Anion Gap 13 (12-20); Aspartate Amino Transferase 21 U/L (5-37); Bilirubin Total 1.1 mg/dL (0.0-1.0); Blood Urea Nitrogen 16 mg/dL (9-16); Calcium 9.5 mg/dL (8.4-10.2); Carbon Dioxide 23 mmol/L (22-29); Chloride 107 mmol/L (96-108); Cholesterol 180 mg/dL; Estimated Glomerular Filt Rate > 60; Glucose Fasting 125 mg/dL (60-99); HDL Cholesterol 35 mg/dL; LDL Cholesterol Calculated 97 mg/dl; Potassium 4.2 mmol/L (3.3-5.1); Sodium 139 mmol/L (135-145); Total Protein 6.7 g/dL (6.5-8.0); Triglycerides 244 mg/dL
[2022-10-22 08:33] LABS: TSH reflex Free T4 3.53 uIU/mL (0.32-4.0)
== END 2022-10-22 06:33 | disposition home or self-care (01) ==
LOC: HO.LAB 06:32
PROVIDERS: PCP Internal Medicine; Visit Provider Internal Medicine
DX: E78.00 Pure hypercholesterolemia, unspecified (principal); R73.01 Impaired fasting glucose; I10 Essential (primary) hypertension
CPT/HCPCS: 36415; 80053; 80061; 81003; 83036; 84443; 85025

== ENCOUNTER → 2023-01-16 09:16 | Outpatient (BNVA) | payer BC, SELFPAY | PROVIDERS: PCP Internal Medicine; Referring Provider Internal Medicine; Visit Provider Internal Medicine | DX: R06.02 Shortness of breath (principal); I10 Essential (primary) hypertension | CPT/HCPCS: 93005 ==

== ENCOUNTER → 2023-01-22 13:48 | Outpatient (REF) | payer BC, SELFPAY ==
--- NOTE | 2023-01-22 13:51 | CA_ITS ---
Transthoracic Echocardiogram Patient (Last, First, Middle): Johann Vasquez L Gender: Male Date of : 1970 Age: 52 Procedure Date: 01/22/2023 Procedure Type: Transthoracic Echocardiogram Location: OP Height: 172.72 cm Weight: 83.01 kg BSA: 1.97 m2 Heart Rate: 90 bpm BP: 110 / 72 mmHg Dry Mixer: TO Referring MD: Bharat Hyatt MD Sheet Turner: Moody Doshi MD Symptoms: R06.02 - Shortness of breath Study Quality: Adequate ECG Rhythm: Sinus Conclusions: - 1. Normal LV ejection fraction 55-60% with impaired relaxation filling pattern with regional wall motion abnormality, with reduced longitudinal strain 2. Normal cardiac valvular Dopplers 3. Normal RV systolic pressure 4. No pericardial effusion Findings Left Ventricle Normal left ventricular size, thickness, and systolic function. The visually estimated ejection fraction is between 55-60%. Spectral Doppler is indicative of an impaired relaxation filling pattern. E/E prime ratio is between 8 and 15 consistent with indeterminate filling pressures. Peak GLS is -12.6%, which is reduced. Wall Motion Rest Echo Findings The inferoseptal wall and basal inferior segment are hypokinetic. All other scored wall segments showed normal motion. Right Ventricle Normal right ventricular cavity size and systolic function. Atria The left atrium is normal in size. Interatrial shunt cannot be excluded. The right atrium is normal in size. Aortic Valve Normal aortic valve structure and function. There is no aortic valve stenosis. There is no aortic valve regurgitation. Mitral Valve Normal mitral valve structure and function. There is trace mitral valve regurgitation. There is no mitral valve stenosis. Pulmonic Valve The pulmonic valve is likely normal. There is trace to mild pulmonic valve regurgitation. Tricuspid Valve Normal tricuspid valve structure. There is trace tricuspid valve regurgitation. The right ventricular systolic pressure is normal. The right ventricular systolic pressure is 25 mmHg. Normal right atrial pressure. There is no evidence of pulmonary hypertension. Great Vessels All visible segments of the aorta are normal in size. The pulmonary artery was not well visualized. Venous The inferior vena cava is normal in size and collapses greater than 50% with inspiration. Pericardium/Pleural There is no evidence of pericardial effusion. Prior Study Comparison No prior study available for comparison. Measurements 2D Linear Measurements IVSd: 1.03 0.6-0.9/0.6-1.0 cm LVIDd: 4.61 3.9-5.3/4.2-5.9 cm LVIDd Index: 2.34 2.4-3.2/2.2-3.1 cm/m2 LVIDs: 3.32 2.0-3.6 cm LVPWd: 0.83 0.7-1.1 cm LA Diam: 2.70 2.7-3.8/3.0-4.0 cm LAIDs Index: 1.37 1.5-2.3 cm/m2 LV Mass: 179.65 67-162/88-224 g LV Mass Index: 91.19 43-95/49-115 g/m2 LVOT Diam: 2.20 3.0+(-)1.3 cm 2D Systolic Function EF 4C: 50.30 >55% EF 2C: 61.70 >55% EF BiP: 56.60 >55% Mitral Valve MV Pk E: 0.81 MV PK A: 0.87 MV Decel Time: 195.00 E/A: 0.90 E'Lateral: 6.42 E'Medial: 6.85 E/E' Med: 11.80 E/E' Lat: 12.60 PHT: 57.00 MVA PHT: 3.86 Decel [place]: 4.12 Aortic Valve AoV Pk Sg: 1.35 AoV Mn Sg: 1.01 AoV VTI: 0.23 AoV Pk Grad: 7.00 Aov Mn Grad: 4.00 ALBA Cont.VTI: 2.64 LVOT LVOT Pk Sg: 0.97 LVOT Mn Sg: 0.70 LVOT VTI: 0.16 LVOT Pk Grad: 4.00 LVOT Mn Grad: 2.00 LVOT Diam: 2.20 LVOT Area: 3.80 Diastolic Function MV Pk E: 0.81 MV Pk A: 0.87 E/A: 0.90 E'Medial: 6.85 E/E' Med: 11.80 E' Laterial: 6.42 E/E' Lat: 12.60 Right Ventricle TAPSE (mm): 21.20 TVS' Sg: 11.40 Tricuspid Valve TR Pk Sg: 2.33 TR Pk Grad: 22.00 RA Press: 3.00 RVSP: 25.00 Great Vessels Aorta Sinus of Valsalva: 3.74 2.0-3.[address] [place]: 2.40 1.7-3.4 cm Ao Asc: 3.20 2.1-3.4 cm Updated in Other Vendor System with Status of Final Moody Doshi MD electronically signed on 01/23/2023 3:21:52 PM with status of Final
== END ==
LOC: HO.CARD 13:48
PROVIDERS: PCP Internal Medicine; Visit Provider Internal Medicine
DX: R06.02 Shortness of breath (principal)
CPT/HCPCS: 93306; 93356

== ENCOUNTER 2023-02-08 07:05 | Outpatient (REF) | payer BC, SELFPAY ==
[2023-02-08 08:12] LABS: Anion Gap 11 (12-20); Blood Urea Nitrogen 16 mg/dL (9-16); Carbon Dioxide 23 mmol/L (22-29); Chloride 110 mmol/L (96-108); Estimated Glomerular Filt Rate > 60; Glucose Random 145 mg/dL (60-115); Potassium 3.9 mmol/L (3.3-5.1); Sodium 140 mmol/L (135-145)
== END 2023-02-08 07:06 | disposition home or self-care (01) ==
LOC: HO.LAB 07:05
PROVIDERS: Visit Provider Internal Medicine
DX: R06.02 Shortness of breath (principal)
CPT/HCPCS: 36415; 80048

== ENCOUNTER 2023-04-04 06:09 | Outpatient (REF) | payer BC, SELFPAY ==
[2023-04-04 06:24] LABS: MANUAL DIFF FLAG NO
[2023-04-04 07:41] LABS: Basophils Percent Auto 0.4 % (0-2); Eosinophils Absolute Auto 0.1 X10*3/uL (0.0-0.4); Hematocrit 46.2 % (42.0-52.0); Hemoglobin 15.7 g/dl (14.0-18.0); Imm Gran Abs Auto 0.03 X10*3/uL (0.00-0.03); Imm Gran Pct Auto 0.4 % (0.0-0.4); Lymphocytes Absolute Auto 2.2 X10*3/uL (1.2-4.9); Lymphocytes Percent Auto 27.3 % (20-40); Mean Corpuscular Hemoglobin 31.1 pg (27.0-33.0); Mean Corpuscular Volume 91.5 fL (80.0-98.0); Mean Platelet Volume 9.6 fL (9.4-12.4); Monocytes Absolute Auto 0.8 X10*3/uL (0.1-1.2); Monocytes Percent Auto 9.7 % (2-11); Neutrophils Absolute Auto 4.8 x10*3/uL (2.0-8.3); Neutrophils Percent Auto 61.2 % (45-73); Platelet Count 233 X10*3/uL (160-400); Red Blood Count 5.05 X10*6/uL (4.60-5.80); White Blood Count 7.9 X10*3/uL (4.8-10.8)
[2023-04-04 07:43] LABS: Appearance Urine Clear; Color Urine Yellow; Glucose Urine UA Negative (Negative); Leukocyte Esterase Urine Negative (Negative); Nitrite Urine Negative (Negative); PH 5.5 (5.0-9.0); Specific Gravity - Urine 1.025 (1.005-1.025); Urine Blood Negative (Negative); Urine Ketones Trace mg/dL (Negative); Urine Protein Negative (Neg-Trace)
[2023-04-04 08:17] LABS: Alanine Aminotransferase 27 U/L (0-40); Albumin Level 4.1 g/dL (3.5-5.0); Alkaline Phosphatase 112 U/L (39-117); Anion Gap 14 (12-20); Aspartate Amino Transferase 18 U/L (5-37); Blood Urea Nitrogen 17 mg/dL (9-16); Calcium 9.2 mg/dL (8.4-10.2); Carbon Dioxide 22 mmol/L (22-29); Chloride 108 mmol/L (96-108); Cholesterol 155 mg/dL; Estimated Glomerular Filt Rate > 60; Glucose Fasting 136 mg/dL (60-99); HDL Cholesterol 34 mg/dL; LDL Cholesterol Calculated 82 mg/dl; Potassium 3.6 mmol/L (3.3-5.1); Sodium 140 mmol/L (135-145); Total Protein 6.3 g/dL (6.5-8.0); Triglycerides 199 mg/dL
[2023-04-04 08:24] LABS: TSH reflex Free T4 1.79 uIU/mL (0.32-4.0); Vitamin D 25-OH Total 42.7 ng/mL (>30)
[2023-04-04 10:45] LABS: Estimated Average Glucose 117 mg/dL; Hemoglobin A1c % 5.7 %
== END 2023-04-04 06:10 | disposition home or self-care (01) ==
LOC: HO.LAB 06:09
PROVIDERS: PCP Internal Medicine; Visit Provider Internal Medicine
DX: R73.01 Impaired fasting glucose (principal); E78.00 Pure hypercholesterolemia, unspecified; E55.9 Vitamin D deficiency, unspecified; I10 Essential (primary) hypertension; R30.0 Dysuria
CPT/HCPCS: 36415; 80053; 80061; 81003; 82306; 83036; 84443; 85025

== ENCOUNTER → 2023-04-05 13:42 | Outpatient (BNVA) | payer BC, SELFPAY | PROVIDERS: PCP Internal Medicine; Visit Provider Nurse Practitioner Family ==

== ENCOUNTER 2023-04-09 14:21 | Outpatient (AMB) | payer BC, SELFPAY ==
--- NOTE | 2023-04-09 14:24 | A.OFFPC_ITS ---
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 Required: No Accompanied by: Self / Same As Patient Allergies No Known Allergies Allergy (Verified 09/17/23 14:38) Medication List - Last Reconciled 09/23/23 by Tucker Negron MD lisinopril 2.5 mg PO DAILY 90 days meclizine (Antivert) 50 mg PO BID PRN methocarbamol 750 mg PO BID PRN 30 days pantoprazole 40 mg (2 x 20 mg) PO ONCE 30 days simvastatin 40 mg PO BEDTIME tamsulosin 0.4 mg PO BEDTIME zolpidem 10 mg PO BEDTIME PRN 30 days Tobacco use date assessed: 04/09/23 Dental Screening Dental Screen Date: 04/09/23 Did you have a dental visit in the last 12 months?: Yes Did you have a dental problem in the last 6 months where you did not have access to dental care?: No Was dental information given to patient?: Patient has dentist HPI Allergies HPI Details Patient comes in today for his follow up visit States that he feels okay He denies any headaches or dizziness Denies any chest pains but reports (+) mild CONTRERAS at times No nausea/vomiting, no abdominal pain No change in bowel habits noted Still has right foot pain - has not yet been seen by podiatry despite being referred a few months ago Had his follow up labs done a few days ago - to discuss his results [facility] Medical History Acid reflux Benign prostatic hyperplasia with urinary obstruction Carpal tunnel syndrome on both sides Overweight (BMI 25.0-29.9) Primary insomnia Paresthesia of both hands Vitamin D deficiency Cervical disc disease Renal calculi Asymptomatic microscopic hematuria Pancreatic cyst Impaired fasting glucose Pure hypercholesterolemia Essential hypertension Surgical History H/O colonoscopy History of esophagogastroduodenoscopy (EGD) Tonsillar cyst Status post excision of lipoma History of surgery on right wrist Family History Father Myocardial infarction Diabetes Hypertension Mother Hypertension Brother Hypertension Social History Housing: House Are you a primary career center advisor to a significant other at home: No Do you presently have visiting nurse or other home services: No Alcohol intake: current Alcohol intake frequency: holidays/special occasions only Patient Tobacco Use Status: Former Tobacco user Quit Date: August 09, 2022 Tobacco use type: Cigarette Years Smoked: 20 +/- e-Cigarette/Vaping Use: Never Used Second Hand Smoke Exposure: Yes service: No Current occupational status: employed 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 1. Little interest or pleasure in doing things: not at all 2. Feeling down, depressed, or hopeless: not at all 3. Trouble falling or staying asleep, or sleeping too much: not at all 4. Feeling tired or having little energy: not at all 5. Poor appetite or overeating: not at all 6. Feeling bad about yourself - or that you are a failure or have let yourself or your family down: not at all 7. Trouble concentrating on things, such as reading the newspaper or watching television: not at all 8. Moving or speaking so slowly that other people could have noticed. Or the opp osite - being so fidgety or restless that you have been moving around a lot more than usual: not at all 9. Thoughts that you would be better off or of hurting yourself in some way: not at all Total score: 0 Depression Screening Interpretation: Negative 43249 - PHQ-9 Billing: Yes Source: Developed by Drs. Jeisno Plummer, Greer Carl, Zana Saini and colleagues, with an educational saloni from [employer]. Thrive Questionnaire Date Thrive assessed: 04/09/23 I am a: Patient What is your living situation today?: I have a steady place to live Within the past 12 months, did the food you bought not last and you didn't have the money to get more?: Never true Within the past 12 months, did you worry whether your food would run out before you got money to buy more?: Never true Do you have trouble paying for medicines?: No Do you have trouble getting transportation to medical appointments?: No Do you have trouble paying your heating and electricity bill?: No Do you have trouble taking care of your child, family member or friend?: No Do you have trouble with day-to-day activities such as bathing, preparing meals, shopping, managing finances, etc.?: No Are you currently unemployed and looking for a job?: No Are you interested in more education?: No Currently or been in a relationship where the following occur: no concerns reported AUDIT C Alcohol Use Questionnaire (AUDIT-C) 1. How often do you have a drink containing alcohol?: 2-4 times a month 2. How many drinks containing alcohol do you have on a typical day when you are drinking?: 1 or 2 3. How often do you have six or more drinks on one occasion?: Never Total Score: 2 Score Reviewed/Action Taken: Yes TRUNG-7 AMB Questionnaire TRUNG-7 Date TRUNG - 7 assessed: 04/09/23 Feeling nervous, anxious, or on edge: 0 = Not at all Not being able to stop or control worryin = Not at all Worrying too much about different things: 0 = Not at all Trouble relaxin = Not at all Being so restless that it is hard to sit still: 0 = Not at all Becoming easily annoyed or irritable: 0 = Not at all Feeling afraid as if something awful might happen: 0 = Not at all Total TRUNG-7 score (0-4 normal; 5-9 mild; 10-14 moderate; 15-21 severe): 0 Source: Developed by Drs. Jeison Plummer, Greer Carl, Zana Saini and colleagues, with an educational saloni from [employer]. Review of Systems Const Denies chills, Denies fatigue, Denies fever(s) and Denies headache(s) ENT Denies dysphagia, Denies dizziness, Denies otalgia, Denies headache(s), Reports neck pain, Denies odynophagia and Denies sore throat Card Denies chest pain, Denies palpitations and Reports dyspnea on exertion (on and off, mild) Resp Denies cough and Reports dyspnea on exertion (on and off, mild) GI Denies abdominal pain, Denies constipation, Denies dysphagia, Denies heartburn, Denies diarrhea, Denies nausea, Denies odynophagia and Denies vomiting Denies dysuria, Denies nocturia and Denies urinary frequency Musc Details: chronic right foot pain Reports back pain (over the lower back - on and off) and Reports neck pain Skin/Breast Denies rash Neuro Denies dizziness and Denies headache(s) Endo Denies fatigue and Denies palpitations Physical exam (Primary Care) Vital Signs: Last Vital Signs Pulse 95 04/09/23 14:25 BP 116/78 04/09/23 14:25 Pulse Ox 97 04/09/23 14:25 Oxygen Delivery Method Room Air 04/09/23 14:25 BMI result Body Mass Index 29.1 Tobacco/Smoking Status: Tobacco use Status Tobacco use date assessed 04/09/23 04/09/23 14:30 Patient Tobacco Use Status Former Tobacco user 04/09/23 15:14 Tobacco use type Cigarette 04/09/23 15:14 e-Cigarette/Vaping Use Never Used 04/09/23 15:14 PHQ-9: PHQ-9 Score PHQ-9: Total score 0 09/23/23 03:56 Depression Screening Interpretation: Negative Thrive Assessment: Date of Thrive Assessment Date Thrive assessed 04/09/23 04/09/23 14:30 Currently or been in a relationship where the following occur: no concerns reported Const General: no acute distress and alert HENMT Ears: TM's normal bilaterally and EAC's normal Throat: Yes posterior oropharynx normal and Yes tonsils normal (no TP congestion) Neck Neck: Yes no lymphadenopathy and Yes supple Resp Auscultation: clear to auscultation bilaterally, no rales and no wheezes Cardio Rate: regular rate Rhythm: regular rhythm Heart sounds: no murmurs GI Palpation (GI): Soft to palpation and nontender Auscultation: normal bowel sounds Back/Spine/Pelvis Cervical Spine: Cervical spine tenderness Thoracic/Lumbar Spine: lumbar spinal tenderness Extrem General: Yes no clubbing, cyanosis or edema Right lower extremity: foot Details: tenderness Location: of the plantar foot and of the calcaneus Results Reviewed Results Reviewed: Laboratory Tests 04/04/23 04/04/23 04/04/23 06:18 06:18 06:20 WBC 7.9 Hgb 15.7 Hct 46.2 Plt Count 233 Sodium 140 Potassium 3.6 Creatinine 0.75 Estimated GFR > 60 Fasting Glucose 136 H Hemoglobin A1c % Calcium AST 18 ALT 27 Triglycerides 199 Cholesterol 155 LDL Cholesterol, Calc 82 HDL Cholesterol 34 25-OH Vitamin D Total 42.7 TSH 1.79 Ur Specific [place] 1.025 Urine Protein Negative Urine Glucose (UA) Negative Urine Blood Negative 04/04/23 04/04/23 06:20 06:20 WBC Hgb Hct Plt Count Sodium Potassium Creatinine Estimated GFR Fasting Glucose Hemoglobin A1c % 5.7 Calcium 9.2 AST ALT Triglycerides Cholesterol LDL Cholesterol, Calc HDL Cholesterol 25-OH Vitamin D Total TSH Ur Specific [place] Urine Protein Urine Glucose (UA) Urine Blood Assessment and Plan Assessment & Plan (1) Essential hypertension: Code(s): I10 - Essential (primary) hypertension Plan: Reinforced low-sodium diet -? goal is systolic BP of 120 mm or less States that he hardly has any recurrent dizziness since his Lisinopril was lowered to 2.5 mg QD at his last appointment with me earlier this year - to continue on Lisinopril 2.5 mg QD Patient is reminded to continue monitoring his blood pressure regularly Per request, he was also referred to cardiology for further evaluation EKG done a few months ago revealed sinus tachycardia, with HR at [address] or T-wave abnormalities. Echocardiogram done on 01/22/2023 showed EF of 55-60%, with impaired relaxation and (+) regional wall motion abnormality with inferior and basal inferior hypokinesis. He then underwent a coronary artery CT scan on 02/15/2023 that showed only minimal plaque with no significant stenosis, RCA dominant, vessel normal. CTA findings will over ride echo wall motion abnormality He was referred then for PFTs for further evaluation of his CONTRERAS and was advised to just see cardiology as needed from then on (2) Pure hypercholesterolemia: Code(s): E78.00 - Pure hypercholesterolemia, unspecified Plan: Results of his labs done a few days reviewed and discussed with patient - lipids have improved slightly from previous Reinforced low cholesterol diet Continue Simvastatin 40 mg QD Will recheck his labs and fasting lipids in 4 months for follow up (3) Impaired fasting glucose: Code(s): R73.01 - Impaired fasting glucose Plan: HgbA1c was normal at 5.7% on his labs done a few days ago; was at 5.8% prev iously Reinforced low calorie diet /exercise as tolerated (4) Pancreatic cyst: Code(s): K86.2 - Cyst of pancreas Plan: Patient had a 1.3 cm hypodense lesion along the proximal body of the pancreas that was initially seen incidentally on his abdominal and pelvic CT done on 09/13/2019 that raised suspicions of a small cystic lesion and further workups with MRI/ MRCP was recommended at the time He had an abdominal MRI done in September 2019 that suggested an intraductal papillary mucinous tumor and recommended a follow up MRI with and without contrast in 6-12 months? Repeat MRI done in January 2022 showed a stable 6 x 10 mm cyst in the head of the pancreas from previous exams; the pancreas is otherwise normal and the main pancreatic duct is normal? Patient is currently asymptomatic and has no acute GI symptoms Will send patient for a repeat abdominal US now just to ensure stability of his pancreatic cyst (5) Right foot pain: Code(s): M79.671 - Pain in right foot Plan: Was seeing Jessica Gustafson at [facility] for management of his right foot issues, which included plantar fasciitis as well as a previous tear/injury to his peroneal tendon but was advised recently that their practice is no longer accepting his insurance He was referred to another finance manager (Dr. Garcia) in [place] for management of his chronic foot issues a few months ago but states that he has not yet been contacted about scheduling an appointment for him - will have the office look into this and help him contact podiatry for his referral (6) Low back pain: Code(s): M54.50 - Low back pain, unspecified Qualifiers: Back pain laterality: midline Chronicity: chronic Sciatica presence: without sciatica Qualified Code(s): M54.50 - Low back pain, unspecified; G89.29 - Other chronic pain Plan: Was sent for repeat lumbar spine x-rays for further evaluation months ago but patient did not get this done - states that his low back pain has subsided somewhat and he would like to hold off on getting x-rays at this time X-rays done back in 2012 revealed (+) mild spondylosis Reinforced activity and weight-lifting restrictions Continue Methocarbamol 750 mg BID PRN (7) Cervical disc disease: Code(s): M50.90 - Cervical disc disorder, unspecified, unspecified cervical region Plan: Cervical spine x-rays done a couple of years ago (2019) showed (+)? multilevel cervical disc disease Continue Methocarbamol PRN (8) Vitamin D deficiency: Code(s): E55.9 - Vitamin D deficiency, unspecified Plan: Continue Vitamin D3 1000 units QD (9) Benign prostatic hyperplasia with urinary obstruction: Code(s): N40.1 - Benign prostatic hyperplasia with lower urinary tract symptoms; N13.8 - Other obstructive and reflux uropathy Plan: Continue Tamsulosin 0.4 mg Q HS (10) Renal calculi: Code(s): N20.0 - Calculus of kidney Plan: Asymptomatic Renal US done in March 2019 showed (+)? bilateral non-obstructing renal calculi Follow-up with urology as scheduled (11) Primary insomnia: Code(s): F51.01 - Primary insomnia Plan: Sleep hygiene reinforced Continue Zolpidem 10 mg Q HS PRN (12) Overweight (BMI 25.0-29.9): Code(s): E66.3 - Overweight Plan: Reinforced diet/exercise as tolerated/lose weight Plan Follow up in 4 months Orders: Orders US abdomen complete 04/09/23 K86.2 - Cyst of pancreas Comprehensive [place]. Panel Fast 4 Months E78.00 - Pure hypercholesterolemia, unspecified Lipid Panel 4 Months E78.00 - Pure hypercholesterolemia, unspecified Coding Level of Care Code Est Pt Level 4 (56260) Diagnoses Essential hypertension I10 Pure hypercholesterolemia E78.00 Impaired fasting glucose R73.01 Pancreatic cyst K86.2 Right foot pain M79.671 Chronic midline low back pain without sciatica M54.50; G89.29 Back pain laterality: midline Chronicity: chronic Sciatica presence: without sciatica Cervical disc disease M50.90 Vitamin D deficiency E55.9 Benign prostatic hyperplasia with urinary obstruction N40.1; N13.8 Renal calculi N20.0 Primary insomnia F51.01 Overweight (BMI 25.0-29.9) E66.3
[2023-04-09 14:25] VITALS: BP 116/78; PULSE 95; O2SAT 97; BMI 29.1
== END 2023-04-09 15:19 | disposition home or self-care (01) ==
PROVIDERS: Visit Provider Internal Medicine
DX: I10 Essential (primary) hypertension (principal); E78.00 Pure hypercholesterolemia, unspecified; R73.01 Impaired fasting glucose; K86.2 Cyst of pancreas; M79.671 Pain in right foot; M54.50 Low back pain, unspecified; G89.29 Other chronic pain; M50.90 Cervical disc disorder, unspecified, unspecified cervical region; E55.9 Vitamin D deficiency, unspecified; N40.1 Benign prostatic hyperplasia with lower urinary tract symptoms; N13.8 Other obstructive and reflux uropathy; N20.0 Calculus of kidney; F51.01 Primary insomnia; E66.3 Overweight
CPT/HCPCS: 99214

== ENCOUNTER 2023-04-22 15:09 | Outpatient (REF) | payer BC, SELFPAY ==
--- NOTE | 2023-04-22 16:10 | PFT_ITS ---
INDICATION: Dyspnea. SPIROMETRY: FEV1 to FVC 78% with an FEV1 of 3.22 L, which is 98% predicted and an FVC is 4.14 L, which is 97% predicted. No significant response to bronchodilator is noted. Maximum voluntary ventilation 122 % predicted. LUNG VOLUMES: Total lung capacity 98% predicted. DIFFUSION CAPACITY: DLCO of 96% predicted. COMPARISON: None. INTERPRETATION: No obstructive nor restrictive ventilatory defects have been identified. No significant response to bronchodilators noted. Normal maximum voluntary ventilation. Normal lung volumes and normal diffusion capacity. No clear explanation for patient's symptoms of dyspnea based on the pulmonary function study results. Clinical correlation warranted. MD BRITTANY Mckeon/NORRIS / [id number]
== END 2023-04-22 15:10 | disposition home or self-care (01) ==
LOC: HO.RESP 15:09
PROVIDERS: PCP Internal Medicine; Visit Provider Nurse Practitioner Family
DX: R06.02 Shortness of breath (principal); Z87.891 Personal history of nicotine dependence
CPT/HCPCS: 94060; 94727; 94729

== ENCOUNTER → 2023-04-22 16:10 | Outpatient (BNV) | payer BC, SELFPAY | PROVIDERS: PCP Internal Medicine; Visit Provider Hospitalist | DX: J45.50 Severe persistent asthma, uncomplicated (principal) | CPT/HCPCS: 94060; 94727; 94729 ==

== ENCOUNTER 2023-04-25 07:38 | Outpatient (REF) | payer BC, SELFPAY ==
--- NOTE | ~2023-04-25 | US_ITS ---
EXAMINATION: US ABDOMEN COMPLETE CLINICAL INFORMATION: Cyst of pancreas. COMPARISON: Selected portions of MR abdomen 01/25/[address] abdomen pelvis 09/13/2019. TECHNIQUE: Real-time imaging of the abdominal viscera. FINDINGS: PANCREAS: The pancreas is mostly obscured. The cyst in the pancreatic head demonstrated on MRI is not visualized ABDOMINAL AORTA: The proximal, mid, and distal segments are normal in caliber. INFERIOR VENA CAVA: Visualized portions are normal. LIVER: There is generalized increased hepatic echogenicity which can be seen with fatty change. There is some sparing around the gallbladder fossa. The liver is normal in size. The liver contour is normal. No focal hepatic lesion. There is no intrahepatic biliary duct dilatation seen. GALLBLADDER: Normal. The gallbladder is physiologically distended without evidence of stones, sludge, polyps, wall thickening or pericholecystic fluid. COMMON BILE DUCT: Normal in caliber measuring 0.4 cm in diameter. RIGHT KIDNEY: There is a tiny area of increased echogenicity abutting the cortex at the junction of the interpolar and lower pole right kidney. No hydronephrosis. No shadowing renal calculi. The kidney measures 10.0 cm in maximum dimension. LEFT KIDNEY: No hydronephrosis. No renal calculi or focal parenchymal lesions. The kidney measures 11.4 cm in maximum dimension. SPLEEN: There is a small rounded area of altered echotexture in the midportion of the spleen. This is relatively hypoechoic. No suspicious abnormality on previous MRI or CT. This does not require any further evaluation. The spleen measures 13.2 cm in maximum dimension. FREE FLUID: None. US/US abdomen complete IMPRESSION: The pancreatic head cyst demonstrated on MRI is not visualized on ultrasound. Fatty liver with some areas of focal sparing.
== END 2023-04-25 07:39 | disposition home or self-care (01) ==
LOC: HO.US 07:38
PROVIDERS: Visit Provider Internal Medicine
DX: K86.2 Cyst of pancreas (principal)
CPT/HCPCS: 76700

== ENCOUNTER 2023-08-03 08:14 | Outpatient (REF) | payer BC, SELFPAY ==
[2023-08-03 09:29] LABS: Alanine Aminotransferase 35 U/L (0-40); Albumin Level 3.7 g/dL (3.5-5.0); Alkaline Phosphatase 116 U/L (39-117); Anion Gap 12 (12-20); Aspartate Amino Transferase 22 U/L (5-37); Bilirubin Total 0.7 mg/dL (0.0-1.0); Blood Urea Nitrogen 14 mg/dL (9-16); Calcium 9.3 mg/dL (8.4-10.2); Carbon Dioxide 24 mmol/L (22-29); Chloride 108 mmol/L (96-108); Cholesterol 149 mg/dL (<200); Estimated Glomerular Filt Rate > 60; Glucose Fasting 138 mg/dL (60-99); HDL Cholesterol 40 mg/dL (>40); LDL Cholesterol Calculated 80 mg/dL (<100); Potassium 3.9 mmol/L (3.3-5.1); Sodium 140 mmol/L (135-145); Total Protein 6.6 g/dL (6.5-8.0); Triglycerides 147 mg/dL (<150)
== END 2023-08-03 08:15 | disposition home or self-care (01) ==
LOC: HO.LAB 08:14
PROVIDERS: PCP Internal Medicine; Visit Provider Internal Medicine
DX: E78.00 Pure hypercholesterolemia, unspecified (principal)
CPT/HCPCS: 36415; 80053; 80061

== ENCOUNTER 2023-09-17 14:26 | Outpatient (AMB) | payer BC, SELFPAY ==
[2023-09-17 14:27] VITALS: BP 108/68; PULSE 108; O2SAT 99; BMI 29.1
--- NOTE | 2023-09-17 14:27 | A.OFFPC_ITS ---
Vital Signs 09/17/23 14:27 Height 5 ft 7 in Weight 186 lb 0.4 oz BMI 29.1 BP 108/68 Blood Pressure Location Lt brachial Position Sitting Pulse 108 H Pulse Source Pulse Oximeter Pulse Oximetry (%) 99 Oxygen Delivery Method Room Air Intake Visit Reasons: 4M. F/U-BP/Cholesterol Tie Puller Required: No Allergies No Known Allergies Allergy (Verified 09/17/23 14:38) Medication List - Last Reconciled 09/17/23 by SHANDRA Urbina lisinopril 2.5 mg PO DAILY 90 days meclizine (Antivert) 50 mg PO BID PRN methocarbamol 750 mg PO BID PRN 30 days pantoprazole 40 mg (2 x 20 mg) PO ONCE 30 days simvastatin 40 mg PO BEDTIME tamsulosin 0.4 mg PO BEDTIME zolpidem 10 mg PO BEDTIME PRN 30 days Tobacco use date assessed: 09/17/23 Dental Screening Dental Screen Date: 09/17/23 Did you have a dental visit in the last 12 months?: Yes Did you have a dental problem in the last 6 months where you did not have access to dental care?: No Was dental information given to patient?: Patient has dentist HPI 4M. F/U-BP/Cholesterol HPI Details Patient is a 53-year-old male who presents today to follow-up on hypertension and cholesterol. Patient of Dr. Negron. Medical history significant for hypertension, hypercholesterolemia, impaired fasting glucose, BPH, acid reflux among others. Patient reports that he is compliant with medications and denies side effects. Recent blood work results reviewed with the patient. Denies concerns at this visit. [facility] Medical History Acid reflux Benign prostatic hyperplasia with urinary obstruction Carpal tunnel syndrome on both sides Overweight (BMI 25.0-29.9) Primary insomnia Paresthesia of both hands Vitamin D deficiency Cervical disc disease Renal calculi Asymptomatic microscopic hematuria Pancreatic cyst Impaired fasting glucose Pure hypercholesterolemia Essential hypertension Surgical History H/O colonoscopy History of esophagogastroduodenoscopy (EGD) Tonsillar cyst Status post excision of lipoma History of surgery on right wrist Family History Father Myocardial infarction Diabetes Hypertension Mother Hypertension Brother Hypertension Social History Housing: House Are you a primary long term care pharmacist to a significant other at home: No Do you presently have visiting nurse or other home services: No Alcohol intake: current Alcohol intake frequency: holidays/special occasions only Patient Tobacco Use Status: Former Tobacco user Quit Date: August 09, 2022 Tobacco use type: Cigarette Years Smoked: 20 +/- e-Cigarette/Vaping Use: Never Used Second Hand Smoke Exposure: Yes service: No Current occupational status: employed 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 1. Little interest or pleasure in doing things: not at all 2. Feeling down, depressed, or hopeless: not at all 3. Trouble falling or staying asleep, or sleeping too much: not at all 4. Feeling tired or having little energy: not at all 5. Poor appetite or overeating: not at all 6. Feeling bad about yourself - or that you are a failure or have let yourself or your family down: not at all 7. Trouble concentrating on things, such as reading the newspaper or watching television: not at all 8. Moving or speaking so slowly that other people could have noticed. Or the opposite - being so fidgety or restless that you have been moving around a lot more than usual: not at all 9. Thoughts that you would be better off or of hurting yourself in some way: not at all Total score: 0 Depression Screening Interpretation: Negative Depression Screening Done: Yes 54745 - PHQ-9 Billing: Yes Source: Developed by Drs. Jeison Plummer, Greer Carl, Zana Saini and colleagues, with an educational saloni from [employer]. Thrive Questionnaire Date Thrive assessed: 04/09/23 AUDIT C Alcohol Use Questionnaire (AUDIT-C) 1. How often do you have a drink containing alcohol?: 2-4 times a month 2. How many drinks containing alcohol do you have on a typical day when you are drinking?: 1 or 2 3. How often do you have six or more drinks on one occasion?: Never Total Score: 2 Score Reviewed/Action Taken: No TRUNG-7 AMB Questionnaire TRUNG-7 Date TRUNG - 7 assessed: 04/09/23 Source: Developed by Drs. Jeison Plummer, Greer Carl, Zana Saini and colleagues, with an educational saloni from [employer]. Review of Systems Const Denies body aches, Denies chills, Denies fever(s) and Denies headache(s) ENT Denies dizziness, Denies otalgia, Denies headache(s), Denies nasal discharge, Denies sinus pain and Denies sore throat Card Denies chest pain, Denies edema, Denies lightheadedness and Denies dyspnea Resp Denies cough, Denies dyspnea and Denies wheezing GI Denies abdominal pain Musc Denies myalgias Neuro Denies dizziness and Denies headache(s) Aller/Immun Denies wheezing Physical exam (Primary Care) Vital Signs: Last Vital Signs Pulse 108 H 09/17/23 14:27 BP 108/68 09/17/23 14:27 Pulse Ox 99 09/17/23 14:27 Oxygen Delivery Method Room Air 09/17/23 14:27 BMI result Body Mass Index 29.1 Tobacco/Smoking Status: Tobacco use Status Tobacco use date assessed 09/17/23 09/17/23 14:28 Patient Tobacco Use Status Former Tobacco user 09/17/23 14:28 Tobacco use type Cigarette 09/17/23 14:28 e-Cigarette/Vaping Use Never Used 09/17/23 14:28 PHQ-9: PHQ-9 Score PHQ-9: Total score 0 09/17/23 14:28 Depression Screening Interpretation: Negative Thrive Assessment: Date of Thrive Assessment Date Thrive assessed 04/09/23 09/17/23 14:28 Const General: cooperative and no acute distress Orientation/consciousness: patient oriented x3 HENMT Head: Yes normocephalic and Yes atraumatic Throat: Yes posterior oropharynx normal Eyes General: appearance normal, both eyes and all related structures Neck Neck: Yes normal visual inspection and Yes full ROM Resp Effort & Inspection: normal respiratory effort and able to speak in complete sentences Auscultation: clear to auscultation bilaterally, no crackles, no rales, no rhonchi and no wheezes Cardio Rate: regular rate Rhythm: regular rhythm Heart sounds: S1 normal heart sound present and S2 normal heart sound present GI Auscultation: normal bowel sounds Skin General skin exam: no rashes or lesions noted Neuro General: patient oriented x3 Gait exam (Neuro): Normal gait present Extrem General: Yes full ROM and No edema Assessment and Plan Assessment & Plan (1) Essential hypertension: Code(s): I10 - Essential (primary) hypertension Plan: Goal BP equal or less than 140/90 Continue lisinopril Low-sodium diet (2) Pure hypercholesterolemia: Code(s): E78.00 - Pure hypercholesterolemia, unspecified Plan: LDL 80 07/2023 Continue simvastatin Low-cholesterol diet (3) Impaired fasting glucose: Code(s): R73.01 - Impaired fasting glucose Plan: A1c 5.7 03/2023 Will recheck A1c Plan Follow-up with PCP in 4 months Orders: Orders Lipid Panel 4 Months E78.00 - Pure hypercholesterolemia, unspecified Comprehensive [place]. Panel Fast 4 Months I10 - Essential (primary) hypertension Hemoglobin A1c 4 Months R73.01 - Impaired fasting glucose Coding Level of Care Code Est Pt Level 4 (00915) Diagnoses Essential hypertension I10 Pure hypercholesterolemia E78.00 Impaired fasting glucose R73.01
== END 2023-09-17 15:23 | disposition home or self-care (01) ==
PROVIDERS: PCP Internal Medicine; Visit Provider Nurse Practitioner Family
DX: I10 Essential (primary) hypertension (principal); E78.00 Pure hypercholesterolemia, unspecified; R73.01 Impaired fasting glucose
CPT/HCPCS: 99214

== ENCOUNTER 2024-07-29 15:16 | Outpatient (AMB) | payer BC, SELFPAY ==
[2024-07-29 15:22] VITALS: BP 120/78; PULSE 101; O2SAT 95; BMI 29.8
--- NOTE | 2024-07-29 15:22 | A.OFFPC_ITS ---
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: No Accompanied by: Self / Same As Patient Allergies No Known Allergies Allergy (Verified 07/29/24 15:41) Medication List - Last Reconciled 07/29/24 by Tucker Negron MD lisinopril 2.5 mg PO DAILY 90 days meclizine (Antivert) 50 mg PO BID PRN methocarbamol 750 mg PO BID PRN 30 days pantoprazole 40 mg (2 x 20 mg) PO ONCE 30 days simvastatin 40 mg PO BEDTIME tamsulosin 0.4 mg PO BEDTIME zolpidem 10 mg PO BEDTIME PRN 30 days Tobacco use date assessed: 07/29/24 Dental Screening Dental Screen Date: 07/29/24 Did you have a dental visit in the last 12 months?: Yes Did you have a dental problem in the last 6 months where you did not have access to dental care?: No Was dental information given to patient?: Patient has dentist HPI Regular Check Up HPI Details Patient comes in today for his annual physical examination -was last seen by me in March 2023 Patient states that he feels okay He denies any headaches or dizziness Denies any chest pains, no shortness of breath No nausea/vomiting, no abdominal pain No change in bowel habits noted He denies any acute urinary symptoms He is up-to-date with his colon cancer screening and will be due for repeat colonoscopy in 2026 Has that he was never contacted by Podiatry he was referred last year - he still has recurrent pain in both feet and would like to get a referral done again Also needs his Zolpidem Rx refill today Recalls that he had a cyst in his pancreas seen incidentally in the past and he would like to have this rechecked again [facility] Medical History (Updated 08/02/24 @ 03:50 by Tucker Negron MD) Obstructive sleep apnea Lumbar spondylosis Acid reflux Benign prostatic hyperplasia with urinary obstruction Carpal tunnel syndrome on both sides Overweight (BMI 25.0-29.9) Primary insomnia Paresthesia of both hands Vitamin D deficiency Cervical disc disease Renal calculi Asymptomatic microscopic hematuria Pancreatic cyst Impaired fasting glucose Pure hypercholesterolemia Essential hypertension Surgical History (Updated 08/02/24 @ 03:42 by Tucker Negron MD) H/O colonoscopy History of esophagogastroduodenoscopy (EGD) Tonsillar cyst Status post excision of lipoma History of surgery on right wrist Family History Father Myocardial infarction Diabetes Hypertension Mother Hypertension Brother Hypertension Social History Housing: House Are you a primary health care legal assistant to a significant other at home: No Do you presently have visiting nurse or other home services: No Alcohol intake: current Alcohol intake frequency: holidays/special occasions only Patient Tobacco Use Status: Former Tobacco user Tobacco use type: Cigarette Years Smoked: 20 +/- e-Cigarette/Vaping Use: Never Used Second Hand Smoke Exposure: Yes service: No Current occupational status: employed 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 1. Little interest or pleasure in doing things: not at all 2. Feeling down, depressed, or hopeless: not at all 3. Trouble falling or staying asleep, or sleeping too much: not at all 4. Feeling tired or having little energy: not at all 5. Poor appetite or overeating: not at all 6. Feeling bad about yourself - or that you are a failure or have let yourself or your family down: not at all 7. Trouble concentrating on things, such as reading the newspaper or watching television: not at all 8. Moving or speaking so slowly that other people could have noticed. Or the opposite - being so fidgety or restless that you have been moving around a lot more than usual: not at all 9. Thoughts that you would be better off or of hurting yourself in some way: not at all Total score: 0 Depression Screening Interpretation: Negative Depression Screening Done: Yes [id number] - PHQ-9 Billing: Yes Source: Developed by Drs. Jeison Plummer, Greer Carl, Zana Saini and colleagues, with an educational saloni from [employer]. Thrive Questionnaire Date Thrive assessed: 07/29/24 I am a: Patient What is your living situation today?: I have a steady place to live Within the past 12 months, did the food you bought not last and you didn't have the money to get more?: Never true Within the past 12 months, did you worry whether your food would run out before you got money to buy more?: Never true Do you have trouble paying for medicines?: No Do you have trouble getting transportation to medical appointments?: No Do you have trouble paying your heating and electricity bill?: No Do you have trouble taking care of your child, family member or friend?: No Do you have trouble with day-to-day activities such as bathing, preparing meals, shopping, managing finances, etc.?: No Are you currently unemployed and looking for a job?: No Are you interested in more education?: No Please select the resources that you would like help with: None Currently or been in a relationship where the following occur: No concerns reported THRIVE Score: 0 AUDIT C Alcohol Use Questionnaire (AUDIT-C) 1. How often do you have a drink containing alcohol?: 2-4 times a month 2. How many drinks containing alcohol do you have on a typical day when you are drinking?: 5 or 6 3. How often do you have six or more drinks on one occasion?: Monthly Total Score: 6 Score Reviewed/Action Taken: Yes (he has been counseled to cut back on his drinking and advised to quit) TRUNG-7 AMB Questionnaire TRUNG-7 Date TRUNG - 7 assessed: 07/29/24 Feeling nervous, anxious, or on edge: 0 = Not at all Not being able to stop or control worryin = Not at all Worrying too much about different things: 0 = Not at all Trouble relaxin = Not at all Being so restless that it is hard to sit still: 0 = Not at all Becoming easily annoyed or irritable: 0 = Not at all Feeling afraid as if something awful might happen: 0 = Not at all Total TRUNG-7 score (0-4 normal; 5-9 mild; 10-14 moderate; 15-21 severe): 0 Source: Developed by Drs. Jeison Plummer, Zana Vegake and colleagues, with an educational saloni from [employer]. Review of Systems Const Denies chills, Denies fatigue, Denies fever(s), Denies headache(s), Denies malaise and Denies weakness Eyes Denies blurry vision, Denies change in vision, Denies irritation and Denies itchy eyes ENT Denies dysphagia, Denies dizziness, Denies otalgia, Denies headache(s), Denies nasal congestion, Denies neck pain, Denies odynophagia and Denies sore throat Card Denies chest pain, Denies rapid heart rate, Denies irregular heart rhythm, Denies palpitations and Denies dyspnea Resp Denies chest congestion, Denies cough, Denies dyspnea and Denies wheezing GI Denies abdominal pain, Denies bloating, Denies constipation, Denies dysphagia, Denies heartburn, Denies diarrhea, Denies nausea, Denies odynophagia and Denies vomiting Denies hematuria, Denies difficulty urinating, Denies dysuria, Denies urinary frequency and Denies urinary urgency Musc Denies back pain, Denies arthralgias, Denies joint swelling, Denies muscle weakness and Denies neck pain Skin/Breast Denies change in pigmentation, Denies lesions, Denies rash and Denies unusual bruising Neuro Denies dizziness, Denies headache(s), Denies paresthesias and Denies weakness Endo Denies fatigue and Denies palpitations Aller/Immun Denies itchy eyes and Denies wheezing Physical exam (Primary Care) Vital Signs: Last Vital Signs Pulse 101 H 07/29/24 15:22 BP 120/78 07/29/24 15:22 Pulse Ox 95 07/29/24 15:22 Oxygen Delivery Method Room Air 07/29/24 15:22 BMI result Body Mass Index 29.8 Tobacco/Smoking Status: Tobacco use Status Tobacco use date assessed 07/29/24 07/29/24 15:28 Patient Tobacco Use Status Former Tobacco user 07/29/24 15:45 Tobacco use type Cigarette 07/29/24 15:28 e-Cigarette/Vaping Use Never Used 07/29/24 15:28 PHQ-9: PHQ-9 Score PHQ-9: Total score 0 08/02/24 03:32 Depression Screening Interpretation: Negative Thrive Assessment: Date of Thrive Assessment Date Thrive assessed 07/29/24 07/29/24 15:28 Currently or been in a relationship where the following occur: No concerns reported Const General: no acute distress, alert and awake Orientation/consciousness: patient oriented x3 HENMT Head: Yes normocephalic and Yes atraumatic Ears: external ears normal, TM's normal bilaterally and EAC's normal General nose exam: No nasal discharge present Face and sinus: Yes normal facial exam and Yes sinuses nontender Teeth and gingiva: dentition normal Throat: Yes posterior oropharynx normal and Yes tonsils normal (no TP congestion) Eyes Eyelids: Yes eyelids normal Conjunctivae: conjunctivae normal Pupils: Equal, round and reactive pupils present EOM: EOMs intact bilaterally Neck Neck: Yes no lymphadenopathy and Yes supple Thyroid: Thyroid normal Resp Auscultation: clear to auscultation bilaterally, no rales and no wheezes Cardio Rate: regular rate Rhythm: regular rhythm Heart sounds: no murmurs GI Palpation (GI): Soft to palpation, nontender and No hepatosplenomegaly present Auscultation: normal bowel sounds General: Yes no CVA tenderness Back/Spine/Pelvis Back: no CVA tenderness Thoracic/Lumbar Spine: thoracic and lumbar spine normal to inspection Skin Lesions: no lesions Rashes: no rashes Neuro General: patient oriented x3, moves all extremities, no focal motor deficits and CN's II-XI intact bilaterally Cranial nerves: Yes Equal, round and reactive pupils present Cognition (Neuro): normal cognition Gait exam (Neuro): Normal gait present Extrem General: Yes no clubbing, cyanosis or edema Office Procedures Flu Questionnaire Does the patient have a severe egg allergy?: No Immunizations Fluarix Triv [id number] (PF) 45 mcg (15 mcg x 3)/0.5 mL IM syringe Performing Provider: Tucker Negron MD [facility] [place] Documented (not given) by: RAHUL Sims on 07/29/24 15:30 Reason Not Given: Patient Refused Coding Level of Care Code Est Pt Prev Care 40-64y(93604) Diagnoses Annual physical exam Z00.00 Essential hypertension I10 Pure hypercholesterolemia E78.00 Impaired fasting glucose R73.01 Pancreatic cyst K86.2 Obstructive sleep apnea G47.33 Right foot pain M79.671 Lumbar spondylosis M47.816 Cervical disc disease M50.90 Vitamin D deficiency E55.9 Benign prostatic hyperplasia with urinary obstruction N40.1; N13.8 Renal calculi N20.0 Primary insomnia F51.01 Overweight (BMI 25.0-29.9) E66.3 Assessment & Plan Assessment & Plan (1) Annual physical exam: Code(s): Z00.00 - Encounter for general adult medical examination without abnormal findings Category: Medical Plan: Check labs He is up-to-date with his screening colonoscopy - was done a couple of years ago (2021) and was recommended to get repeat colonoscopy in 5 years (2026) (2) Essential hypertension: Code(s): I10 - Essential (primary) hypertension Category: Medical Plan: Reinforced low-sodium diet -? goal is systolic BP of 120 mm or less Continue Lisinopril 2.5 mg QD Patient is reminded to continue monitoring his blood pressure regularly (3) Pure hypercholesterolemia: Code(s): E78.00 - Pure hypercholesterolemia, unspecified Category: Medical Plan: Will send him for labs to check his fasting lipids as well Reinforced low cholesterol diet Continue Simvastatin 40 mg QD Will recheck his labs and fasting lipids in 4 months for follow up Coronary artery CT scan on 02/15/2023 showed only minimal plaque with no significant stenosis, RCA dominant, vessel normal (4) Impaired fasting glucose: Code(s): R73.01 - Impaired fasting glucose Category: Medical Plan: His HgbA1c was normal at 5.7% and 5.8% when previously checked last year (2022) Reinforced low calorie diet /exercise as tolerated (5) Pancreatic cyst: Code(s): K86.2 - Cyst of pancreas Category: Medical Plan: Patient had a 1.3 cm hypodense lesion along the proximal body of the pancreas that was initially seen incidentally on his abdominal and pelvic CT done on 09/13/2019 that raised suspicions of a small cystic lesion and further workups with MRI/ MRCP was recommended at the time He had an abdominal MRI done in September 2019 that suggested an intraductal papillary mucinous tumor and recommended a follow up MRI with and without contrast in 6-12 months? Repeat MRI done in January 2022 showed a stable 6 x 10 mm cyst in the head of the pancreas from previous exams; the pancreas is otherwise normal and the main pancreatic duct is normal? Patient is currently asymptomatic and has no acute GI symptoms Per request, will send patient for a repeat abdominal US now to ensure stability of his pancreatic cyst (6) Obstructive sleep apnea: Code(s): G47.33 - Obstructive sleep apnea (adult) (pediatric) Category: Medical Plan: Continue using his CPAP device when sleeping at night She is currently using Autopap at 6 to 16 cm H2O when sleeping at night and is benefitting from its nightly use Follow up with Sleep Medicine as scheduled (7) Right foot pain: Code(s): M79.671 - Pain in right foot Category: Medical Plan: Will refer patient again to podiatry for further evaluation and management (8) Lumbar spondylosis: Code(s): M47.816 - Spondylosis without myelopathy or radiculopathy, lumbar region Category: Medical Plan: Lumbar spine x-rays done back in 2012 revealed (+) mild spondylosis Reinforced activity and weight-lifting restrictions Continue Methocarbamol 750 mg BID PRN (9) Cervical disc disease: Code(s): M50.90 - Cervical disc disorder, unspecified, unspecified cervical region Category: Medical Plan: Cervical spine x-rays done a few years ago (2019) showed (+)? multilevel cervical disc disease Continue Methocarbamol PRN (10) Vitamin D deficiency: Code(s): E55.9 - Vitamin D deficiency, unspecified Category: Medical Plan: Continue Vitamin D3 1000 units QD (11) Benign prostatic hyperplasia with urinary obstruction: Code(s): N40.1 - Benign prostatic hyperplasia with lower urinary tract symptoms; N13.8 - Other obstructive and reflux uropathy Category: Medical Plan: Continue Tamsulosin 0.4 mg Q HS (12) Renal calculi: Code(s): N20.0 - Calculus of kidney Category: Medical Plan: Asymptomatic Renal US done in March 2019 showed (+)? bilateral non-obstructing renal calculi Follow-up with urology as scheduled (13) Primary insomnia: Code(s): F51.01 - Primary insomnia Category: Medical Plan: Sleep hygiene reinforced Continue Zolpidem 10 mg Q HS PRN - Rx refilled (14) Overweight (BMI 25.0-29.9): Code(s): E66.3 - Overweight Category: Medical Plan: Reinforced diet/exercise as tolerated/lose weight Plan Follow up in 4 months Orders: Orders Complete Blood Count Auto Diff 07/29/24 D64.9 - Anemia, unspecified Lipid Panel 07/29/24 E78.00 - Pure hypercholesterolemia, unspecified UA CC w/rflx Micro + Cult 07/29/24 R30.0 - Dysuria Comprehensive [place]. Panel Fast 4 Months E78.00 - Pure hypercholesterolemia, unspecified US abdomen complete 07/29/24 K86.2 - Cyst of pancreas Influenza [id number] Immunization 07/29/24 Z23 - Encounter for immunization Comprehensive [place]. Panel Fast 07/29/24 E78.00 - Pure hypercholesterolemia, unspecified TSH reflex Free T4 07/29/24 E78.00 - Pure hypercholesterolemia, unspecified Prostate Specific Antigen Scr 07/29/24 Z00.00 - Encounter for general adult medical examination without abnormal findings Vitamin D 25-OH Total 07/29/24 E55.9 - Vitamin D deficiency, unspecified Hemoglobin A1c 07/29/24 R73.01 - Impaired fasting glucose Vitamin B12 and Folate 07/29/24 E53.8 - Deficiency of other specified B group vitamins Lipid Panel 4 Months E78.00 - Pure hypercholesterolemia, unspecified Referrals Podiatry Referral M79.671 - Pain in right foot, M79.672 - Pain in left foot Medications: Refilled zolpidem 10 mg PO BEDTIME 30 days PRN 30 tabs 2RF Insomnia
== END 2024-07-29 15:52 | disposition home or self-care (01) ==
PROVIDERS: PCP Internal Medicine; Visit Provider Internal Medicine
DX: Z00.00 Encounter for general adult medical examination without abnormal findings (principal); I10 Essential (primary) hypertension; E78.00 Pure hypercholesterolemia, unspecified; R73.01 Impaired fasting glucose; K86.2 Cyst of pancreas; G47.33 Obstructive sleep apnea (adult) (pediatric); M79.671 Pain in right foot; M47.816 Spondylosis without myelopathy or radiculopathy, lumbar region; M50.90 Cervical disc disorder, unspecified, unspecified cervical region; E55.9 Vitamin D deficiency, unspecified; N40.1 Benign prostatic hyperplasia with lower urinary tract symptoms; N13.8 Other obstructive and reflux uropathy; N20.0 Calculus of kidney; F51.01 Primary insomnia; E66.3 Overweight

== ENCOUNTER → 2024-07-29 15:16 | Outpatient (BNVA) | payer BC, SELFPAY | PROVIDERS: PCP Internal Medicine; Visit Provider Internal Medicine | DX: Z00.01 Encounter for general adult medical examination with abnormal findings (principal); I10 Essential (primary) hypertension; E78.00 Pure hypercholesterolemia, unspecified; R73.01 Impaired fasting glucose; K86.2 Cyst of pancreas; M79.671 Pain in right foot; G47.33 Obstructive sleep apnea (adult) (pediatric); M47.816 Spondylosis without myelopathy or radiculopathy, lumbar region; M50.90 Cervical disc disorder, unspecified, unspecified cervical region; E55.9 Vitamin D deficiency, unspecified; N40.1 Benign prostatic hyperplasia with lower urinary tract symptoms; N13.8 Other obstructive and reflux uropathy; N20.0 Calculus of kidney; F51.01 Primary insomnia; E66.3 Overweight; Z68.29 Body mass index [BMI] 29.0-29.9, adult; Z79.899 Other long term (current) drug therapy; Z28.21 Immunization not carried out because of patient refusal | CPT/HCPCS: 90471; 96127 ==

== ENCOUNTER 2024-08-24 08:09 | Outpatient (REF) | payer BC, SELFPAY | END 2024-08-24 08:10 | disposition home or self-care (01) | LOC: HO.US 08:09 | PROVIDERS: PCP Internal Medicine; Visit Provider Internal Medicine | DX: K86.2 Cyst of pancreas (principal) | CPT/HCPCS: 76700 ==

== ENCOUNTER 2024-10-02 13:15 | Outpatient (AMB) | payer BC, SELFPAY ==
[2024-10-02 13:26] VITALS: BP 118/82; PULSE 96; O2SAT 97; BMI 29.1
--- NOTE | 2024-10-02 13:26 | MHC.PC.OV ---
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 Accompanied by: Self / Same As Patient Allergies No Known Allergies Allergy (Verified 10/02/24 13:48) Medication List - Last Reconciled 10/02/24 by Tucker Negron MD lisinopril 2.5 mg PO DAILY 90 days meclizine (Antivert) 50 mg PO BID PRN methocarbamol 750 mg PO BID PRN 30 days pantoprazole 40 mg (2 x 20 mg) PO ONCE 30 days simvastatin 40 mg PO BEDTIME tamsulosin 0.4 mg PO BEDTIME zolpidem 10 mg PO BEDTIME PRN 30 days Tobacco use date assessed: 10/02/24 Dental Screening Dental Screen Date: 10/02/24 Did you have a dental visit in the last 12 months?: Yes Did you have a dental problem in the last 6 months where you did not have access to dental care?: No Was dental information given to patient?: Patient has dentist HPI Back pain HPI Details Patient comes in today complaining of significantly increased pain over his lower back for the past 1 week Thinks that his having to go up and down the stairs constantly while he is at work is what likely triggered or aggravated his recent increased pain over his lower back Recalls getting x-rays of his lower back years ago that came out normal - this was back in 2012 when we tried to look up his x-rays Patient states that he has been taking his Methocarbamol TID for the past few days with only partial relief of his symptoms States that he's had to sleep in a recliner at night lately as his lower back feels better when he is in the recliner compared to when he lies down on his bed Relates that sharp pains sometimes go down his right leg but his leg does not feel weal He denies any headaches or dizziness Denies any chest pains, no increased SOB No nausea/vomiting, no abdominal pain No change in bowel habits noted PFSH Medical History Obstructive sleep apnea Lumbar spondylosis Acid reflux Benign prostatic hyperplasia with urinary obstruction Carpal tunnel syndrome on both sides Overweight (BMI 25.0-29.9) Primary insomnia Paresthesia of both hands Vitamin D deficiency Cervical disc disease Renal calculi Asymptomatic microscopic hematuria Pancreatic cyst Impaired fasting glucose Pure hypercholesterolemia Essential hypertension Surgical History H/O colonoscopy History of esophagogastroduodenoscopy (EGD) Tonsillar cyst Status post excision of lipoma History of surgery on right wrist Family History Father Myocardial infarction Diabetes Hypertension Mother Hypertension Brother Hypertension Social History Housing: House Are you a primary career technical education instructor to a significant other at home: No Do you presently have visiting nurse or other home services: No Alcohol intake: current Alcohol intake frequency: holidays/special occasions only Patient Tobacco Use Status: Former Tobacco user Tobacco use type: Cigarette Years Smoked: 20 +/- e-Cigarette/Vaping Use: Never Used Second Hand Smoke Exposure: Yes service: No Current occupational status: employed 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 1. Little interest or pleasure in doing things: not at all 2. Feeling down, depressed, or hopeless: not at all 3. Trouble falling or staying asleep, or sleeping too much: not at all 4. Feeling tired or having little energy: not at all 5. Poor appetite or overeating: not at all 6. Feeling bad about yourself - or that you are a failure or have let yourself or your family down: not at all 7. Trouble concentrating on things, such as reading the newspaper or watching television: not at all 8. Moving or speaking so slowly that other people could have noticed. Or the opposite - being so fidgety or restless that you have been moving around a lot more than usual: not at all 9. Thoughts that you would be better off or of hurting yourself in some way: not at all Total score: 0 Depression Screening Interpretation: Negative Depression Screening Done: Yes 11726 - PHQ-9 Billing: Yes Source: Developed by Drs. Jeison Plummer, Greer Carl, Zana Saini and colleagues, with an educational saloni from [employer]. Thrive Questionnaire Date Thrive assessed: 10/02/24 I am a: Patient What is your living situation today?: I have a steady place to live Within the past 12 months, did the food you bought not last and you didn't have the money to get more?: Never true Within the past 12 months, did you worry whether your food would run out before you got money to buy more?: Never true Do you have trouble paying for medicines?: No Do you have trouble getting transportation to medical appointments?: No Do you have trouble paying your heating and electricity bill?: No Do you have trouble taking care of your child, family member or friend?: No Do you have trouble with day-to-day activities such as bathing, preparing meals, shopping, managing finances, etc.?: No Are you currently unemployed and looking for a job?: No Are you interested in more education?: No Please select the resources that you would like help with: None Currently or been in a relationship where the following occur: No concerns reported THRIVE Score: 0 AUDIT C Alcohol Use Questionnaire (AUDIT-C) 1. How often do you have a drink containing alcohol?: 2-4 times a month 2. How many drinks containing alcohol do you have on a typical day when you are drinking?: 5 or 6 3. How often do you have six or more drinks on one occasion?: Monthly Total Score: 6 Score Reviewed/Action Taken: Yes (he has been counseled to cut back on his drinking and advised to quit) TRUNG-7 AMB Questionnaire TRUNG-7 Date TRUNG - 7 assessed: 10/02/24 Feeling nervous, anxious, or on edge: 0 = Not at all Not being able to stop or control worryin = Not at all Worrying too much about different things: 0 = Not at all Trouble relaxin = Not at all Being so restless that it is hard to sit still: 0 = Not at all Becoming easily annoyed or irritable: 0 = Not at all Feeling afraid as if something awful might happen: 0 = Not at all Total TRUNG-7 score (0-4 normal; 5-9 mild; 10-14 moderate; 15-21 severe): 0 Source: Developed by Drs. Jeison Plummer, Greer Carl, Zana Saini and colleagues, with an educational saloni from [employer]. Review of Systems Const Denies chills, Denies fatigue, Denies fever(s) and Denies headache(s) ENT Denies dysphagia, Denies dizziness, Denies otalgia, Denies headache(s), Denies neck pain and Denies sore throat Card Denies chest pain, Denies palpitations and Denies dyspnea Resp Denies chest congestion, Denies cough and Denies dyspnea GI Denies abdominal pain, Denies constipation, Denies dysphagia, Denies heartburn, Denies diarrhea, Denies nausea and Denies vomiting Denies hematuria, Denies difficulty urinating, Denies dysuria, Denies urinary frequency and Denies urinary urgency Musc Reports back pain (increased over the lower back ), Denies arthralgias, Denies neck pain and Reports radiating pain into limb (into R leg at times) Skin/Breast Denies rash Neuro Denies dizziness, Denies headache(s) and Denies paresthesias Endo Denies fatigue and Denies palpitations Physical exam (Primary Care) Vital Signs: Last Vital Signs Pulse 96 10/02/24 13:26 BP 118/82 10/02/24 13:26 Pulse Ox 97 10/02/24 13:26 Oxygen Delivery Method Room Air 10/02/24 13:26 BMI result Body Mass Index 29.1 Tobacco/Smoking Status: Tobacco use Status Tobacco use date assessed 10/02/24 10/02/24 13:29 Patient Tobacco Use Status Former Tobacco user 10/02/24 13:29 Tobacco use type Cigarette 10/02/24 13:29 e-Cigarette/Vaping Use Never Used 10/02/24 13:29 PHQ-9: PHQ-9 Score PHQ-9: Total score 0 10/02/24 14:06 Depression Screening Interpretation: Negative Thrive Assessment: Date of Thrive Assessment Date Thrive assessed 10/02/24 10/02/24 13:29 Currently or been in a relationship where the following occur: No concerns reported Const General: no acute distress and alert Neck Neck: Yes no lymphadenopathy and Yes supple Thyroid: Thyroid normal Resp Auscultation: clear to auscultation bilaterally, no rales and no wheezes Cardio Rate: regular rate Rhythm: regular rhythm Heart sounds: no murmurs GI Palpation (GI): Soft to palpation and nontender Auscultation: normal bowel sounds General: Yes no CVA tenderness Back/Spine/Pelvis Back: no CVA tenderness Thoracic/Lumbar Spine: paraspinal muscle tenderness bilaterally in the mid lumbar and in the lower lumbar and lumbar spinal tenderness Extrem General: Yes no clubbing, cyanosis or edema Coding Level of Care Code Est Pt Level 3 (21444) Diagnoses Chronic midline low back pain without sciatica M54.50; G89.29 Chronicity: chronic Back pain laterality: midline Sciatica presence: without sciatica Additional Codes PHQ-9 - 21771 - PHQ-9 Billing: Yes ([id number]) Assessment & Plan Assessment & Plan (1) Low back pain: Code(s): M54.50 - Low back pain, unspecified Category: Medical Qualifiers: Chronicity: chronic Back pain laterality: midline Sciatica presence: without sciatica Qualified Code(s): M54.50 - Low back pain, unspecified; G89.29 - Other chronic pain Plan: Will send patient for x-rays of the lumbar spine for further evaluation Have advised him that depending on how his x-rays come out and due to his radicular symptoms, we may need an MRI at some point for further evaluation and we will wait and see how his x-rays come out first Continue Methocarbamol 750 mg BID PRN and will start him on Tramadol 50 mg TID PRN - have cautioned patient about drowsiness and sedation as possible side effects He can also apply some warm compress over his lower back PRN for symptomatic relief Plan To return as scheduled next month (October 2024) Orders: Orders XR lumbar spine 2-3V Today M54.50 - Low back pain, unspecified Medications: New tramadol 50 mg PO TID PRN 30 tabs 0RF increased low back pain
== END 2024-10-02 13:57 | disposition home or self-care (01) ==
PROVIDERS: PCP Internal Medicine; Visit Provider Internal Medicine
DX: M54.50 Low back pain, unspecified (principal); G89.29 Other chronic pain

== ENCOUNTER → 2024-10-02 13:15 | Outpatient (BNVA) | payer BC, SELFPAY | PROVIDERS: PCP Internal Medicine; Visit Provider Internal Medicine | DX: M54.50 Low back pain, unspecified (principal); G89.29 Other chronic pain; Z79.899 Other long term (current) drug therapy | CPT/HCPCS: 96127 ==

== ENCOUNTER 2024-10-05 09:27 | Outpatient (REF) | payer BC, SELFPAY ==
--- NOTE | ~2024-10-05 | XR_ITS ---
EXAMINATION: XR LUMBOSACRAL SPINE CLINICAL INFORMATION: M54.50 - Low back pain, unspecified COMPARISON: None available. TECHNIQUE: Three views of the lumbosacral spine. FINDINGS: Dextroscoliosis of the lumbar spine. Facet arthritis in the lower lumbar spine. Moderate multilevel lumbar spondylosis. Advanced degenerative changes with large anterior osteophytes and loss of disc space height at L1-L2. Minimal grade 1 retrolisthesis of L1 on L2, L2 on L3, L3 on L4. XR/XR lumbar spine 2-3V IMPRESSION: Moderate multilevel lumbar spondylosis. Facet arthritis in the lower lumbar spine. This study was presented today to October 05, 2024 for interpretation. Stat results provided at this time as requested by referring provider. Electronically signed by: Amisha Scales MD 10/05/2024 09:52 AM [facility]
== END 2024-10-05 09:28 | disposition home or self-care (01) ==
LOC: HO.XRAY 09:27
PROVIDERS: PCP Internal Medicine; Visit Provider Internal Medicine
DX: M54.50 Low back pain, unspecified (principal)
CPT/HCPCS: 72100

== ENCOUNTER 2024-10-09 15:28 | Outpatient (AMB) | payer BC, SELFPAY ==
--- NOTE | 2024-10-09 15:56 | MHC.OFFWIV ---
Intake Vital Signs 10/09/24 15:57 Weight 84.368 kg BP 120/84 Blood Pressure Location Lt brachial Position Sitting Pulse 104 H Pulse Source Pulse Oximeter Pulse Oximetry (%) 96 Oxygen Delivery Method Room Air Intake Visit Reasons: EP-lower back pain Intake Note: Patient here for lower back pain that has been present painful for the past week or so. Patient Tobacco Use Status: Former Tobacco user Allergies No Known Allergies Allergy (Verified 10/09/24 15:57) Do you need a note to return to daycare/school/sports/work: Yes HPI HPI Comments History of Present Illness Details [birth year] 54 yo m presents w/ lower back pain w/ radiation to RLE worse w/ movement better at rest. Has tried muscle relaxers and tramadol no improvment of sx. Recent xray unremarkable per patient had it done by pcp. No red flax sx. Pain has been going on for a week without relief. Denies falls/ traumas, saddle anesthesias, weakness, fevers, chills, urine/bowel incontinence/ retention. PE- appears uncomfortable but ambulating w/ steady gait. No saddle anesthesias lumbar paraspinous tenderness throughout R>L Concerns for lumbar radiculopathy L4-l5. No signs of acute cord compression, cauda equina, epidural abscess. Plan- gabapentin ( educated on SE and proper use), meloxicam ( educated no nsaids or ibuprofen w/ this), prednsione and pcp follow up. Return w/ new or worsening sx [facility] Medical History Obstructive sleep apnea Lumbar spondylosis Acid reflux Benign prostatic hyperplasia with urinary obstruction Carpal tunnel syndrome on both sides Overweight (BMI 25.0-29.9) Primary insomnia Paresthesia of both hands Vitamin D deficiency Cervical disc disease Renal calculi Asymptomatic microscopic hematuria Pancreatic cyst Impaired fasting glucose Pure hypercholesterolemia Essential hypertension Surgical History H/O colonoscopy History of esophagogastroduodenoscopy (EGD) Tonsillar cyst Status post excision of lipoma History of surgery on right wrist Family History Father Myocardial infarction Diabetes Hypertension Mother Hypertension Brother Hypertension Social History Housing: House Are you a primary post acute care nurse practitioner to a significant other at home: No Do you presently have visiting nurse or other home services: No Alcohol intake: current Alcohol intake frequency: holidays/special occasions only Patient Tobacco Use Status: Former Tobacco user Tobacco use type: Cigarette Years Smoked: 20 +/- e-Cigarette/Vaping Use: Never Used Second Hand Smoke Exposure: Yes service: No Current occupational status: employed 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 Oriented X3.? No acute distress.? Head: Normocephalic, atraumatic, no step-offs or deformities Eyes: Pupils equal, round and reactive to light.? Neck: Normal inspection.? Neck supple.? CVS: Normal heart rate and rhythm.? Pulses normal.? Respiratory: No respiratory distress.? Breath sounds normal.? Abdomen: Soft and nontender.? Skin: Skin warm and dry.? Normal skin color.? Normal skin turgor.? Extremities: No lower extremity edema.? No calf ttp. 5/5 strength to bilateral upper and lower extremities Back: No midline tenderness, no C-spine tenderness, full range of motion, no CVA tenderness bilaterally + b/l lumbar paraspinous muscle ttp on exam throughout and into s1 region. R>L Neuro: Oriented X 3.? No motor deficit.? No sensory deficit. CN 2-12 intact . AMbulating w/ steady gait. No saddle anesthesias Assessment & Plan Assessment & Plan (1) Lumbar radiculopathy: Code(s): M54.16 - Radiculopathy, lumbar region Plan Take your medications as prescribed. If you were prescribed antibiotics today, it is important that you take your medication to their entirety, do not skip any doses, do not finish them early. Follow-up with your primary care provider this week. Return to the emergency department with new or worsening symptoms. In case of emergency call 911 Medications: New meloxicam take at night with food 15 mg PO DAILY 30 tabs 0RF pain prednisone 40 mg (2 x 20 mg) PO DAILY 5 days 10 tabs 0RF gabapentin 200 mg (2 x 100 mg) PO BEDTIME 30 caps 0RF lidocaine 4% (AsperFlex (lidocaine)) 1 patch topical DAILY PRN 15 ea 0RF pain Coding Level of Care Code Est Pt Level 3 (67228) Diagnoses Lumbar radiculopathy M54.16
[2024-10-09 15:57] VITALS: BP 120/84; PULSE 104; O2SAT 96
== END 2024-10-09 16:18 | disposition home or self-care (01) ==
PROVIDERS: PCP Internal Medicine; Visit Provider Physician Assistant
DX: M54.16 Radiculopathy, lumbar region (principal)

== ENCOUNTER → 2024-10-09 15:28 | Outpatient (BNVA) | payer BC, SELFPAY | PROVIDERS: PCP Internal Medicine; Visit Provider Physician Assistant ==

== ENCOUNTER 2024-10-29 06:06 | Outpatient (REF) | payer BC, SELFPAY ==
[2024-10-29 06:24] LABS: MANUAL DIFF FLAG NO
[2024-10-29 07:06] LABS: Basophils Percent Auto 0.6 % (0-2); Eosinophils Absolute Auto 0.1 X10*3/uL (0.0-0.4); Eosinophils Percent Auto 1.9 % (0-4); Hematocrit 46.7 % (42.0-52.0); Hemoglobin 16.1 g/dl (14.0-18.0); Imm Gran Abs Auto 0.02 X10*3/uL (0.00-0.03); Imm Gran Pct Auto 0.3 % (0.0-0.4); Lymphocytes Absolute Auto 1.8 X10*3/uL (1.2-4.9); Mean Corpuscular HGB Conc 34.5 g/dl (31.0-36.0); Mean Corpuscular Hemoglobin 31.5 pg (27.0-33.0); Mean Corpuscular Volume 91.4 fL (80.0-98.0); Mean Platelet Volume 9.4 fL (9.4-12.4); Monocytes Absolute Auto 0.6 X10*3/uL (0.1-1.2); Monocytes Percent Auto 9.2 % (2-11); Neutrophils Absolute Auto 4.2 x10*3/uL (2.0-8.3); Platelet Count 222 X10*3/uL (160-400); Red Blood Count 5.11 X10*6/uL (4.60-5.80); Red Cell Distribution Width 12.2 % (11.0-16.0); White Blood Count 6.7 X10*3/uL (4.8-10.8)
[2024-10-29 07:07] LABS: Estimated Average Glucose 117 mg/dL; Hemoglobin A1C 164.0244 umol/L; Hemoglobin A1c % 5.7 % (<6.0); Total Hemoglobin (HGBA1C) 4225.6247 umol/L
[2024-10-29 07:08] LABS: Estimated Average Glucose 117 mg/dL; Hemoglobin A1C 166.6499 umol/L; Hemoglobin A1c % 5.7 % (<6.0); Total Hemoglobin (HGBA1C) 4249.4685 umol/L
[2024-10-29 07:13] LABS: Alanine Aminotransferase 26 U/L (0-40); Albumin Level 4.2 g/dL (3.5-5.0); Alkaline Phosphatase 91 U/L (39-117); Anion Gap 9 (12-20); Aspartate Amino Transferase 22 U/L (5-37); Bilirubin Total 0.8 mg/dL (0.0-1.0); Blood Urea Nitrogen 16 mg/dL (9-16); Calcium 8.5 mg/dL (8.4-10.2); Carbon Dioxide 24 mmol/L (22-29); Chloride 111 mmol/L (96-108); Cholesterol 170 mg/dL (<200); Estimated Glomerular Filt Rate > 60; Glucose Fasting 130 mg/dL (60-99); HDL Cholesterol 40 mg/dL (>40); LDL Cholesterol Calculated 98 mg/dL (<100); Sodium 140 mmol/L (135-145); Total Protein 6.4 g/dL (6.5-8.0); Triglycerides 163 mg/dL (<150)
[2024-10-29 07:18] LABS: Alanine Aminotransferase 28 U/L (0-40); Albumin Level 4.2 g/dL (3.5-5.0); Alkaline Phosphatase 93 U/L (39-117); Anion Gap 8 (12-20); Aspartate Amino Transferase 21 U/L (5-37); Bilirubin Total 0.8 mg/dL (0.0-1.0); Blood Urea Nitrogen 16 mg/dL (9-16); Calcium 8.7 mg/dL (8.4-10.2); Carbon Dioxide 25 mmol/L (22-29); Chloride 111 mmol/L (96-108); Cholesterol 167 mg/dL (<200); Estimated Glomerular Filt Rate > 60; Glucose Fasting 130 mg/dL (60-99); HDL Cholesterol 38 mg/dL (>40); LDL Cholesterol Calculated 97 mg/dL (<100); Sodium 140 mmol/L (135-145); Total Protein 6.3 g/dL (6.5-8.0); Triglycerides 163 mg/dL (<150)
[2024-10-29 07:36] LABS: TSH reflex Free T4 1.79 uIU/mL (0.32-4.0); Vitamin D 25-OH Total 29.1 ng/mL (>30)
[2024-10-29 07:39] LABS: Appearance Urine Clear; Color Urine Yellow; Glucose Urine UA Negative (Negative); Leukocyte Esterase Urine Negative (Negative); Nitrite Urine Negative (Negative); PH 5.5 (5.0-9.0); Specific Gravity - Urine 1.025 (1.005-1.025); Urine Blood Negative (Negative); Urine Ketones Negative (Negative); Urine Protein Negative (Neg-Trace)
[2024-10-29 07:46] LABS: Folate 11.6 ng/mL (> or = 4.0); Prostate Specific Antigen Scr 0.78 ng/mL (<0.05-4.0); Vitamin B12 433 pg/mL (200-900)
== END 2024-10-29 06:07 | disposition home or self-care (01) ==
LOC: HO.LAB 06:06
PROVIDERS: Nurse Practitioner Family; PCP Internal Medicine; Visit Provider Internal Medicine
DX: Z00.00 Encounter for general adult medical examination without abnormal findings (principal); D64.9 Anemia, unspecified; E78.00 Pure hypercholesterolemia, unspecified; R30.0 Dysuria; E55.9 Vitamin D deficiency, unspecified; R73.01 Impaired fasting glucose; E53.8 Deficiency of other specified B group vitamins; I10 Essential (primary) hypertension; Z12.5 Encounter for screening for malignant neoplasm of prostate
CPT/HCPCS: 36415; 80053; 80061; 81003; 82306; 82607; 82746; 83036; 84153; 84443; 85025

== ENCOUNTER 2024-11-10 14:30 | Outpatient (AMB) | payer BC, SELFPAY ==
[2024-11-10 14:41] VITALS: BP 116/80; PULSE 88; O2SAT 98; BMI 29.6
--- NOTE | 2024-11-10 14:41 | MHC.PC.OV ---
Vital Signs 11/10/24 14:41 Height 5 ft 7 in Weight 189 lb 4 oz BMI 29.6 BP 116/80 Blood Pressure Location Lt brachial Position Sitting Pulse 88 Pulse Source Pulse Oximeter Pulse Oximetry (%) 98 Oxygen Delivery Method Room Air Intake Visit Reasons: 4 Months f/u Component Prep Operator Required: No Accompanied by: Self / Same As Patient Allergies No Known Allergies Allergy (Verified 11/10/24 15:41) Medication List - Last Reconciled 11/10/24 by Tucker Negron MD gabapentin 200 mg (2 x 100 mg) PO BEDTIME lidocaine 4% (AsperFlex (lidocaine)) 1 patch topical DAILY PRN lisinopril 2.5 mg PO DAILY 90 days meclizine (Antivert) 50 mg PO BID PRN meloxicam 15 mg PO DAILY methocarbamol 750 mg PO BID PRN 30 days pantoprazole 40 mg (2 x 20 mg) PO ONCE 30 days simvastatin 40 mg PO BEDTIME tamsulosin 0.4 mg PO BEDTIME tramadol 50 mg PO TID PRN zolpidem 10 mg PO BEDTIME PRN 30 days Tobacco use date assessed: 11/10/24 Dental Screening Dental Screen Date: 11/10/24 Did you have a dental visit in the last 12 months?: Yes Did you have a dental problem in the last 6 months where you did not have access to dental care?: No Was dental information given to patient?: Patient has dentist HPI 4 Months f/u HPI Details Patient comes in today for his follow up visit States that he feels okay He denies any headaches or dizziness Denies any chest pains, no SOB No nausea/vomiting, no abdominal pain No change in bowel habits noted Needs his Zolpidem Rx refilled He had his follow up labs done a couple of weeks ago - to discuss his results He would also like to know how his ultrasound done a couple of months ago came out Adds that he went to the ER last month for increased low back pain, which he states has been bothering him a lot since the weather turned colder several weeks ago [facility] Medical History Obstructive sleep apnea Lumbar spondylosis Acid reflux Benign prostatic hyperplasia with urinary obstruction Carpal tunnel syndrome on both sides Overweight (BMI 25.0-29.9) Primary insomnia Paresthesia of both hands Vitamin D deficiency Cervical disc disease Renal calculi Asymptomatic microscopic hematuria Pancreatic cyst Impaired fasting glucose Pure hypercholesterolemia Essential hypertension Surgical History H/O colonoscopy History of esophagogastroduodenoscopy (EGD) Tonsillar cyst Status post excision of lipoma History of surgery on right wrist Family History Father Myocardial infarction Diabetes Hypertension Mother Hypertension Brother Hypertension Social History Housing: House Are you a primary critical care nurse to a significant other at home: No Do you presently have visiting nurse or other home services: No Alcohol intake: current Alcohol intake frequency: holidays/special occasions only Patient Tobacco Use Status: Former Tobacco user Tobacco use type: Cigarette Years Smoked: 20 +/- e-Cigarette/Vaping Use: Never Used Second Hand Smoke Exposure: Yes service: No Current occupational status: employed 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 1. Little interest or pleasure in doing things: not at all 2. Feeling down, depressed, or hopeless: not at all 3. Trouble falling or staying asleep, or sleeping too much: not at all 4. Feeling tired or having little energy: not at all 5. Poor appetite or overeating: not at all 6. Feeling bad about yourself - or that you are a failure or have let yourself or your family down: not at all 7. Trouble concentrating on things, such as reading the newspaper or watching television: not at all 8. Moving or speaking so slowly that other people could have noticed. Or the opposite - being so fidgety or restless that you have been moving around a lot more than usual: not at all 9. Thoughts that you would be better off or of hurting yourself in some way: not at all Total score: 0 Depression Screening Interpretation: Negative Depression Screening Done: Yes 51218 - PHQ-9 Billing: Yes Source: Developed by Drs. Jeison Plummer, Zana Vega and colleagues, with an educational saloni from [email or web address]. Thrive Questionnaire Date Thrive assessed: 11/10/24 I am a: Patient What is your living situation today?: I have a steady place to live Within the past 12 months, did the food you bought not last and you didn't have the money to get more?: Never true Within the past 12 months, did you worry whether your food would run out before you got money to buy more?: Never true Do you have trouble paying for medicines?: No Do you have trouble getting transportation to medical appointments?: No Do you have trouble paying your heating and electricity bill?: No Do you have trouble taking care of your child, family member or friend?: No Do you have trouble with day-to-day activities such as bathing, preparing meals, shopping, managing finances, etc.?: No Are you currently unemployed and looking for a job?: No Are you interested in more education?: No Please select the resources that you would like help with: None Currently or been in a relationship where the following occur: No concerns reported THRIVE Score: 0 AUDIT C Alcohol Use Questionnaire (AUDIT-C) 1. How often do you have a drink containing alcohol?: 2-4 times a month 2. How many drinks containing alcohol do you have on a typical day when you are drinking?: 1 or 2 3. How often do you have six or more drinks on one occasion?: Monthly Total Score: 4 Score Reviewed/Action Taken: Yes (he has been counseled to cut back on his drinking and advised to quit) TRUNG-7 AMB Questionnaire TRUNG-7 Date TRUNG - 7 assessed: 10/02/24 Source: Developed by Drs. Jeison Plummer, Greer Carl, Zana Saini and colleagues, with an educational saloni from [email or web address]. Review of Systems Const Denies chills, Denies fatigue, Denies fever(s) and Denies headache(s) ENT Denies dysphagia, Denies dizziness, Denies otalgia, Denies headache(s), Denies neck pain and Denies sore throat Card Denies chest pain, Denies palpitations and Denies dyspnea Resp Denies chest congestion, Denies cough and Denies dyspnea GI Denies abdominal pain, Denies constipation, Denies dysphagia, Denies heartburn, Denies diarrhea, Denies nausea and Denies vomiting Denies hematuria, Denies difficulty urinating, Denies dysuria, Denies urinary frequency and Denies urinary urgency Musc Reports back pain (increased over the lower back ), Denies arthralgias, Denies neck pain and Reports radiating pain into limb (into R leg at times) Skin/Breast Denies rash Neuro Denies dizziness, Denies headache(s) and Denies paresthesias Endo Denies fatigue and Denies palpitations Physical exam (Primary Care) Vital Signs: Last Vital Signs Pulse 88 11/10/24 14:41 BP 116/80 11/10/24 14:41 Pulse Ox 98 11/10/24 14:41 Oxygen Delivery Method Room Air 11/10/24 14:41 BMI result Body Mass Index 29.6 Tobacco/Smoking Status: Tobacco use Status Tobacco use date assessed 11/10/24 11/10/24 14:43 Patient Tobacco Use Status Former Tobacco user 11/10/24 14:43 Tobacco use type Cigarette 11/10/24 14:43 e-Cigarette/Vaping Use Never Used 11/10/24 14:43 Depression Screening Interpretation: Negative Thrive Assessment: Date of Thrive Assessment Date Thrive assessed 10/02/24 11/10/24 14:43 Currently or been in a relationship where the following occur: No concerns reported Const General: no acute distress and alert HENMT Ears: TM's normal bilaterally and EAC's normal Throat: Yes posterior oropharynx normal and Yes tonsils normal Neck Neck: Yes supple and No lymphadenopathy Thyroid: Thyroid normal Resp Auscultation: clear to auscultation bilaterally, no rales and no wheezes Cardio Rate: regular rate Rhythm: regular rhythm Heart sounds: no murmurs GI Palpation (GI): Soft to palpation and nontender Auscultation: normal bowel sounds General: Yes no CVA tenderness Back/Spine/Pelvis Back: no CVA tenderness Thoracic/Lumbar Spine: paraspinal muscle tenderness bilaterally in the mid lumbar and in the lower lumbar and lumbar spinal tenderness Skin Rashes: no rashes Extrem General: Yes no clubbing, cyanosis or edema Results Reviewed Results Reviewed: Laboratory Tests 10/29/24 10/29/24 06:20 06:22 WBC 6.7 Hgb 16.1 Hct 46.7 Plt Count 222 Sodium 140 Potassium 4.0 Creatinine 0.70 Estimated GFR > 60 Fasting Glucose 130 H Hemoglobin A1c % 5.7 Calcium 8.7 D AST 21 ALT 28 Triglycerides 163 H Cholesterol 167 LDL Cholesterol, Calc 97 HDL Cholesterol 38 L PSA Screen 0.78 Vitamin B12 433 25-OH Vitamin D Total 29.1 L TSH 1.79 Ur Specific Breese 1.025 Urine Protein Negative Urine Glucose (UA) Negative Urine Blood Negative Urine Nitrite Negative Ur Leukocyte Esterase Negative Coding Level of Care Code Est Pt Level 4 (21105) Diagnoses Essential hypertension I10 Pure hypercholesterolemia E78.00 Impaired fasting glucose R73.01 Pancreatic cyst K86.2 Obstructive sleep apnea G47.33 Right foot pain M79.671 Lumbar spondylosis M47.816 Cervical disc disease M50.90 Vitamin D deficiency E55.9 Benign prostatic hyperplasia with urinary obstruction N40.1; N13.8 Renal calculi N20.0 Primary insomnia F51.01 Overweight (BMI 25.0-29.9) E66.3 Additional Codes PHQ-9 - 77451 - PHQ-9 Billing: Yes ([id number]) Assessment & Plan Assessment & Plan (1) Essential hypertension: Code(s): I10 - Essential (primary) hypertension Category: Medical Plan: Reinforced low-sodium diet -? goal is systolic BP of 120 mm or less Continue Lisinopril 2.5 mg QD Patient is reminded to continue monitoring his blood pressure regularly (2) Pure hypercholesterolemia: Code(s): E78.00 - Pure hypercholesterolemia, unspecified Category: Medical Plan: His coronary artery CT scan done on 02/15/2023 showed only minimal plaque with no significant stenosis, RCA dominant, vessel normal Results of his labs done a couple of weeks ago reviewed and discussed with patient Reinforced low cholesterol diet Continue Simvastatin 40 mg QD Will recheck his labs and fasting lipids in 4 months for follow up (3) Impaired fasting glucose: Code(s): R73.01 - Impaired fasting glucose Category: Medical Plan: His HgbA1c was normal at 5.7% and 5.8% when previously checked back in 2022; is at normal 5.7% again on his recent labs done a couple of weeks ago Reinforced low calorie diet /exercise as tolerated (4) Pancreatic cyst: Code(s): K86.2 - Cyst of pancreas Category: Medical Plan: Patient had a 1.3 cm hypodense lesion along the proximal body of the pancreas that was initially seen incidentally on his abdominal and pelvic CT done on 09/13/2019 that raised suspicions of a small cystic lesion and further workups with MRI/ MRCP was recommended at the time He had an abdominal MRI done in September 2019 that suggested an intraductal papillary mucinous tumor and recommended a follow up MRI with and without contrast in 6-12 months? Repeat MRI done in January 2022 showed a stable 6 x 10 mm cyst in the head of the pancreas from previous exams; the pancreas is otherwise normal and the main pancreatic duct is normal? Patient is currently asymptomatic and has no acute GI symptoms Per his request, he was sent for a repeat abdominal US at his last visit to ensure stability of his pancreatic cyst - US done in August 2024 revealed that the pancreas was not well visualized and was obscured by bowel gas; (+) hypoechoic area in the liver is probably focal fat sparing. Echogenic lesion in the right kidney 6 mm could be a cortical stone versus angiomyolipoma. recommend correlation with follow-up ultrasound in 6 months. There was also a small cyst in the spleen at around 8 mm in size Will repeat his abdominal US in 6 months for follow up (5) Obstructive sleep apnea: Code(s): G47.33 - Obstructive sleep apnea (adult) (pediatric) Category: Medical Plan: Continue using his CPAP device when sleeping at night He is currently using Autopap at 6 to 16 cm H2O when sleeping at night and is benefitting from its nightly use Follow up with Sleep Medicine as scheduled (6) Right foot pain: Code(s): M79.671 - Pain in right foot Category: Medical Plan: Follow up with podiatry as scheduled (7) Lumbar spondylosis: Code(s): M47.816 - Spondylosis without myelopathy or radiculopathy, lumbar region Category: Medical Plan: Lumbar spine x-rays done back in 2012 revealed (+) mild spondylosis Reinforced activity and weight-lifting restrictions Continue Methocarbamol 750 mg BID PRN Will refer him now to pain management for further recommendations and interventions to help control his recently increasing pain over his lower back (8) Cervical disc disease: Code(s): M50.90 - Cervical disc disorder, unspecified, unspecified cervical region Category: Medical Plan: Cervical spine x-rays done a few years ago (2019) showed (+)? multilevel cervical disc disease Continue Methocarbamol PRN (9) Vitamin D deficiency: Code(s): E55.9 - Vitamin D deficiency, unspecified Category: Medical Plan: Continue Vitamin D3 1000 units QD (10) Benign prostatic hyperplasia with urinary obstruction: Code(s): N40.1 - Benign prostatic hyperplasia with lower urinary tract symptoms; N13.8 - Other obstructive and reflux uropathy Category: Medical Plan: Continue Tamsulosin 0.4 mg Q HS (11) Renal calculi: Code(s): N20.0 - Calculus of kidney Category: Medical Plan: Asymptomatic Renal US done in March 2019 showed (+)? bilateral non-obstructing renal calculi Follow-up with urology as scheduled (12) Primary insomnia: Code(s): F51.01 - Primary insomnia Category: Medical Plan: Sleep hygiene reinforced Continue Zolpidem 10 mg Q HS PRN - Rx refilled (13) Overweight (BMI 25.0-29.9): Code(s): E66.3 - Overweight Category: Medical Plan: Reinforced diet/exercise as tolerated/lose weight Plan Follow up in 4 months Orders: Orders Complete Blood Count Auto Diff 4 Months D64.9 - Anemia, unspecified Comprehensive [place]. Panel Fast 4 Months E78.00 - Pure hypercholesterolemia, unspecified Vitamin D 25-OH Total 4 Months E55.9 - Vitamin D deficiency, unspecified Lipid Panel 4 Months E78.00 - Pure hypercholesterolemia, unspecified UA CC w/rflx Micro + Cult 4 Months R30.0 - Dysuria TSH reflex Free T4 4 Months E78.00 - Pure hypercholesterolemia, unspecified Referrals Pain Management Referral M47.816 - Spondylosis without myelopathy or radiculopathy, lumbar region Medications: Refilled zolpidem 10 mg PO BEDTIME 30 days PRN 30 tabs 2RF Insomnia
== END 2024-11-10 15:49 | disposition home or self-care (01) ==
PROVIDERS: PCP Internal Medicine; Visit Provider Internal Medicine
DX: I10 Essential (primary) hypertension (principal); E78.00 Pure hypercholesterolemia, unspecified; R73.01 Impaired fasting glucose; K86.2 Cyst of pancreas; G47.33 Obstructive sleep apnea (adult) (pediatric); M79.671 Pain in right foot; M47.816 Spondylosis without myelopathy or radiculopathy, lumbar region; M50.90 Cervical disc disorder, unspecified, unspecified cervical region; E55.9 Vitamin D deficiency, unspecified; N40.1 Benign prostatic hyperplasia with lower urinary tract symptoms; N13.8 Other obstructive and reflux uropathy; N20.0 Calculus of kidney; F51.01 Primary insomnia; E66.3 Overweight

== ENCOUNTER → 2024-11-10 14:30 | Outpatient (BNVA) | payer BC, SELFPAY | PROVIDERS: PCP Internal Medicine; Visit Provider Internal Medicine | DX: I10 Essential (primary) hypertension (principal); E78.00 Pure hypercholesterolemia, unspecified; R73.01 Impaired fasting glucose; K86.2 Cyst of pancreas; G47.33 Obstructive sleep apnea (adult) (pediatric); M79.671 Pain in right foot; M47.816 Spondylosis without myelopathy or radiculopathy, lumbar region; M50.90 Cervical disc disorder, unspecified, unspecified cervical region; E55.9 Vitamin D deficiency, unspecified; N40.1 Benign prostatic hyperplasia with lower urinary tract symptoms; N13.8 Other obstructive and reflux uropathy; N20.0 Calculus of kidney; F51.01 Primary insomnia; E66.3 Overweight; Z79.899 Other long term (current) drug therapy | CPT/HCPCS: 96127 ==

== ENCOUNTER 2024-11-26 14:25 | Outpatient (AMB) | payer BC, SELFPAY ==
--- OUTSIDE RECORDS SUMMARY | 2024-11-26 14:28 | XMS_ITS | Patient Health Record ---
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 Name Role Phone Tucker Negron Primary Care Provider Unavaila ble Allergies No Known Allergies Reason For Referral No Information Medications Medication SIG (Take, Route, Frequency, Duration) Notes Start Date End Date Status Diclofenac Sodium 3 % 1 application to the right foot Externally Twice a day for 30 days 1 gm as dirrected right foot BID Not-Taking Zolpidem Tartrate 10 MG 1 tablet at bedtime as needed Orally Once a day Active Diclofenac Sodium 50 MG TAKE 1 TABLET BY MOUTH TWICE A DAY 30 for 30 Active Diclofenac Sodium 1 % 1 gm as directed right foot Externally Twice a day for 30 day(s) Not-Taking Carisoprodol 350 MG 1 tablet as needed Orally at bedtime Active Simvastatin 40 MG 1 tablet in the evening Orally at bedtime Active Ondansetron 2 mg PO Q6-8H PRN Active Meclizine HCl 25 MG 1 tablet as needed Orally 3 times a day as needed Active Lisinopril 5 MG 1 tablet Orally Once a day Active Plan Of Treatment Pending Test Test Name Order Date X ray : Foot, right 3v 02/13/2021 INJ TENDON SHEATH/LIGAMENT/FASCIA 2020 INJ TENDON SHEATH/LIGAMENT/FASCIA 2020 Insurance Providers Payer Name Payer Address Payer Phone Subscriber Number Group Number Insured Name Patient Relationship to Insured Coverage Start Date Coverage End Date [facility] [address] [place] [phone] [id number] Johann Vasquez Self - patient is the insured Medications Administered Medication Instructions Date of Administration Dosage Notes Dexamethasone 03/28/2021 0.5 mL Dexamethasone 06/26/2021 0.5 mL Kenalog 03/28/2021 0.5 mL Kenalog 06/26/2021 0.5 mL Medical (General) History Medical History History ICD Code Asymptomatic microscopic hematuria Benign prostatic hyperplasia with urinar y obstruction carpal tunnel syndrome on both sides Cervical disc disease Essential hypertension Impaired fasting glucose Overweight Pancreatic cyst Paresthesia of both hands Primary insomnia Pure hypercholesterolemia Renal calculi vitamin D deficiency Surgical History Surgery Date(Month/Year) right wrist surgery excision lipoma tonsillar cyst excision
--- NOTE | 2024-11-26 14:30 | A.OFFVIS_ITS ---
Vital Signs 11/26/24 14:33 Height 5 ft 7 in Weight 193 lb 2 oz BMI 30.2 BP 131/73 Blood Pressure Location Lt brachial Position Sitting Pulse 97 Pulse Source Pulse Oximeter Pulse Oximetry (%) 97 Oxygen Delivery Method Room Air Intake Visit Reasons: Spondylosis without myelopathy, lumbar region Intake Note: Pain today 10/23 Application Integration Specialist Required: No Accompanied by: Self / Same As Patient Allergies No Known Allergies Allergy (Verified 11/26/24 14:33) Medication List - Last Reconciled 11/26/24 by SHANDRA Spaulding gabapentin 200 mg (2 x 100 mg) PO BEDTIME lidocaine 4% (AsperFlex (lidocaine)) 1 patch topical DAILY PRN lisinopril 2.5 mg PO DAILY 90 days meclizine (Antivert) 50 mg PO BID PRN meloxicam 15 mg PO DAILY pantoprazole 40 mg (2 x 20 mg) PO ONCE 30 days simvastatin 40 mg PO BEDTIME tamsulosin 0.4 mg PO BEDTIME zolpidem 10 mg PO BEDTIME PRN 30 days HPI HPI Spondylosis without myelopathy, lumbar region: Details: Patient is a pleasant 54-year-old male with prior history chronic low back pain, lumbar dextroscoliosis, lumbar and cervical degenerative disc disease and spondylosis, kidney stones, ROCÍO, vertigo, presents today for initial evaluation for low back pain with radiation into right anterior thigh and right foot with associated numbness and tingling but no weakness. Denies any recent or past trauma, injury or falls. Patient also reports back pain with radiation to his right buttock and lateral hip, consistent with right sacroiliac joint pain. Back pain is worse with walking, prolonged sitting or standing, flexing forward and bending, climbing stairs and cold weather. Reports multiple back injections in the past with good results through [facility]. Denies previous spine surgery. Pain affects his daily activities functioning, mobility, mood, sleep, and social interactions. 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 He has been managing his symptoms with gabapentin, Tylenol, NSAIDs, heat therapy, activity modifications, and tried chiropractic therapy in the past with continued symptoms. Denies any fever or chills, abdominal or groin pain, weakness, foot drop, bladder dysfunction or saddle anesthesia. Patient also reports frequent episodes of vertigo with spinning and dizziness, most recent episode when shoveling snow this morning. He reports partial relief with meclizine. Patient is interested in Vestibular therapy as well as PT for for low back pain prior to interventional treatments. Oswestry Low Back Disability Score=24 (moderate disability) Location: Lower back pain radiates to right lower extremity Duration: Chronic pain for >18-20 years Characteristics of symptom or complaint: Aching, tightness, numbness, burning, stabbing, radiating, tingling, sore Aggravating or associated factors: Movement, bending, prolonged sitting or standing, heavy lifting, cold Relieving factors: Tylenol, NSAIDs, lidocaine patch, gabapentin, muscle relaxant, heat Treatment: Chiropractic therapy 3-4 years ago, back injections at [facility] 15-18 years ago [facility] Medical History Obstructive sleep apnea Lumbar spondylosis Acid reflux Benign prostatic hyperplasia with urinary obstruction Carpal tunnel syndrome on both sides Overweight (BMI 25.0-29.9) Primary insomnia Paresthesia of both hands Vitamin D deficiency Cervical disc disease Renal calculi Asymptomatic microscopic hematuria Pancreatic cyst Impaired fasting glucose Pure hypercholesterolemia Essential hypertension Surgical History H/O colonoscopy History of esophagogastroduodenoscopy (EGD) Tonsillar cyst Status post excision of lipoma History of surgery on right wrist Family History Father Myocardial infarction Diabetes Hypertension Mother Hypertension Brother Hypertension Social History Housing: House Are you a primary child care assistant to a significant other at home: No Do you presently have visiting nurse or other home services: No Alcohol intake: current Alcohol intake frequency: holidays/special occasions only Patient Tobacco Use Status: Former Tobacco user Tobacco use type: Cigarette Years Smoked: 20 +/- e-Cigarette/Vaping Use: Never Used Second Hand Smoke Exposure: Yes service: No Current occupational status: employed 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 Alert and oriented. Mood and affect appropriate. Follows and participates in conversation appropriately. Respiratory effort is unlabored. No cough. Able to transition from sit to stand unassisted. Ambulates with bilaterally normal heel strike and toe off, increased right LBP with right toes standing. General: Yes no CVA tenderness Back/Spine/Pelvis Other: Limited lumbar ROM due to pain. Normal gait. No limping. Lumbar extension reproduces mild pain, lumbar flexion and bending reproduces moderate pain. Demonstrates 5/5 strength of quadriceps bilaterally as well as flexion/dorsiflexion of bilateral feet against resistance. 2+ pedal pulses bilaterally. Straight leg rise with dorsiflexion negative bilaterally. +2 patellar and achilles reflexes bilaterally. Facet loading test positive bilaterally. Donavan sign, Moy?s, Gaenslen, Pelvic compression and Stinchfield tests are positive on the right. No groin pain with I/E hip rotations. No TTP to bilateral GTB areas. Valsalva maneuver is negative. Back: no CVA tenderness Cervical Spine: cervical ROM normal, cervical muscular tenderness, pain with cervical ROM, No Cervical spine tenderness and No step off deformity Thoracic/Lumbar Spine: thoracic and lumbar spine normal to inspection, No Thoracic/lumbar spine scar(s), Lasegue's sign negative, straight leg raise negative bilaterally, pain with thoraco-lumbar ROM, paraspinal muscle tenderness, thoraco-lumbar ROM limited, No thoracic spinal tenderness and lumbar spinal tenderness (L4-S1) Pelvis: buttock tenderness on the right and no sciatic notch tenderness Sacroiliac joints: bilaterally tender to palpation Extrem General: Yes capillary refill normal, Yes no clubbing, cyanosis or edema and Yes no calf tenderness Results Reviewed Results Reviewed: XR LUMBOSACRAL SPINE 10/05/24 CLINICAL INFORMATION: M54.50 - Low back pain, unspecified COMPARISON: None available. TECHNIQUE: Three views of the lumbosacral spine. FINDINGS: Dextroscoliosis of the lumbar spine. Facet arthritis in the lower lumbar spine. Moderate multilevel lumbar spondylosis. Advanced degenerative changes with large anterior osteophytes and loss of disc space height at L1-L2. Minimal grade 1 retrolisthesis of L1 on L2, L2 on L3, L3 on L4. IMPRESSION: Moderate multilevel lumbar spondylosis. Facet arthritis in the lower lumbar spine. Assessment & Plan Assessment & Plan (1) Lumbar spondylosis: Code(s): M47.816 - Spondylosis without myelopathy or radiculopathy, lumbar region Category: Medical (2) Lumbar radiculopathy: Code(s): M54.16 - Radiculopathy, lumbar region Category: Medical (3) Sacroiliac joint pain: Code(s): M53.3 - Sacrococcygeal disorders, not elsewhere classified Category: Medical (4) Lumbar degenerative disc disease: Code(s): M51.369 - Other intervertebral disc degeneration, lumbar region without mention of lumbar back pain or lower extremity pain Category: Medical (5) Muscle spasm of back: Code(s): M62.830 - Muscle spasm of back Category: Medical (6) Lumbar spondylosis: Code(s): M47.816 - Spondylosis without myelopathy or radiculopathy, lumbar region Category: Medical (7) Lumbar degenerative disc disease: Code(s): M51.369 - Other intervertebral disc degeneration, lumbar region without mention of lumbar back pain or lower extremity pain Category: Medical (8) Vertigo: Code(s): R42 - Dizziness and giddiness Category: Medical (9) Benign paroxysmal positional vertigo, bilateral: Code(s): H81.13 - Benign paroxysmal vertigo, bilateral Category: Medical Plan Patient presents today with axial, right sided radicular and right SIJ pain with discogenic pain components. His recent lumbar spine xray shows dextroscoliosis of the lumbar spine, moderate multilevel lumbar spondylosis and advanced multilevel degenerative changes with large anterior osteophytes and loss of disc space height. Patient is interested to start with formal physical therapy as initial steps. He has history of good pain relief with remote back injections and is interested in interventional treatments if no improvement with PT and home exercise program. Scripts provided cyclobenzaprine and lidocaine patches. Side effects and precautions were discussed with patient. All questions and concerns have been answered and patient agreed with treatment plan. Follow up after PT and sooner as needed. Orders: Orders PT Evaluation and Treatment Today M47.816 - Spondylosis without myelopathy or radiculopathy, lumbar region, M51.369 - Other intervertebral disc degeneration, lumbar region without mention of lumbar back pain or lower extremity pain, M53.3 - Sacrococcygeal disorders, not elsewhere classified, M54.16 - Radiculopathy, lumbar region PT Evaluation and Treatment Today H81.13 - Benign paroxysmal vertigo, bilateral, R42 - Dizziness and giddiness Medications: New cyclobenzaprine 5 mg PO TID PRN 30 tabs 0RF muscle spasm M47.816 - Spondylosis without myelopathy or radiculopathy, lumbar region, M51.369 - Other intervertebral disc degeneration, lumbar region without mention of lumbar back pain or lower extremity pain, M62.830 - Muscle spasm of back lidocaine 5% leave on most painful area for up to 12 hrs topical 30 days 30 ea 3RF pain M47.816 - Spondylosis without myelopathy or radiculopathy, lumbar region, M51.369 - Other intervertebral disc degeneration, lumbar region without mention of lumbar back pain or lower extremity pain Discontinued lidocaine 4% (AsperFlex (lidocaine)) Discontinued Reason: Patient Completed Course 1 patch topical DAILY PRN 15 ea 0RF pain Coding Level of Care Code New Pt Level 4 (28816) Complex EM visit Add On G2211 Diagnoses Lumbar spondylosis M47.816 Lumbar radiculopathy M54.16 Sacroiliac joint pain M53.3 Lumbar degenerative disc disease M51.369 Muscle spasm of back M62.830 Vertigo R42 Benign paroxysmal positional vertigo, bilateral H81.13
[2024-11-26 14:33] VITALS: BP 131/73; PULSE 97; O2SAT 97; BMI 30.2
== END 2024-11-26 15:02 | disposition home or self-care (01) ==
PROVIDERS: PCP Internal Medicine; Referring Provider Internal Medicine; Visit Provider Nurse Practitioner Family
DX: M47.816 Spondylosis without myelopathy or radiculopathy, lumbar region (principal); M54.16 Radiculopathy, lumbar region; M53.3 Sacrococcygeal disorders, not elsewhere classified; M51.369 Other intervertebral disc degeneration, lumbar region without mention of lumbar back pain or lower extremity pain; M62.830 Muscle spasm of back; R42 Dizziness and giddiness; H81.13 Benign paroxysmal vertigo, bilateral
CPT/HCPCS: 99204

== ENCOUNTER 2025-02-11 06:11 | Outpatient (REF) | payer BC, SELFPAY ==
--- OUTSIDE RECORDS SUMMARY | 2025-02-11 06:13 | XMS_ITS | Patient Health Record ---
Author Organization [facility] Address [address] [place] [address] Care Team Providers Care Food Consultant Name Role Phone Tucker Negron Primary Care [...] Insured Coverage Start Date Coverage End Date [facility] [address] [place] [address] [phone] [id number] 4 Johann Vasquez Self - patient is [...]
[2025-02-11 06:25] LABS: MANUAL DIFF FLAG NO
[2025-02-11 07:16] LABS: Basophils Percent Auto 0.5 % (0-2); Eosinophils Absolute Auto 0.1 X10*3/uL (0.0-0.4); Eosinophils Percent Auto 1.4 % (0-4); Hemoglobin 15.7 g/dl (14.0-18.0); Imm Gran Abs Auto 0.02 X10*3/uL (0.00-0.03); Imm Gran Pct Auto 0.3 % (0.0-0.4); Lymphocytes Absolute Auto 2.1 X10*3/uL (1.2-4.9); Mean Corpuscular HGB Conc 34.1 g/dl (31.0-36.0); Mean Corpuscular Hemoglobin 31.5 pg (27.0-33.0); Mean Corpuscular Volume 92.2 fL (80.0-98.0); Mean Platelet Volume 9.4 fL (9.4-12.4); Monocytes Absolute Auto 0.9 X10*3/uL (0.1-1.2); Neutrophils Absolute Auto 4.9 x10*3/uL (2.0-8.3); Neutrophils Percent Auto 60.8 % (45-73); Platelet Count 237 X10*3/uL (160-400); Red Blood Count 4.99 X10*6/uL (4.60-5.80); Red Cell Distribution Width 12.4 % (11.0-16.0)
[2025-02-11 07:26] LABS: Appearance Urine Clear; Color Urine Yellow; Glucose Urine UA Negative (Negative); Leukocyte Esterase Urine Negative (Negative); Nitrite Urine Negative (Negative); PH 5.5 (5.0-9.0); Specific Gravity - Urine >= 1.030 (1.005-1.025); UMIC TRIGGER UACC YES; Urine Blood Trace (Negative); Urine Ketones Trace mg/dL (Negative); Urine Protein Negative (Neg-Trace)
[2025-02-11 07:31] LABS: Bacteria Urine None Seen (None Seen); Hyaline Casts Urine 0-2 /LPF (0-2); Squamous Epithelial Cell Urine 0-2 /HPF (0-2); WBC Urine 0-5 /HPF (0-5)
[2025-02-11 07:48] LABS: Alanine Aminotransferase 32 U/L (0-40); Albumin Level 4.2 g/dL (3.5-5.0); Alkaline Phosphatase 95 U/L (39-117); Anion Gap 13 (12-20); Aspartate Amino Transferase 20 U/L (5-37); Bilirubin Total 0.7 mg/dL (0.0-1.0); Blood Urea Nitrogen 20 mg/dL (9-16); Calcium 8.9 mg/dL (8.4-10.2); Carbon Dioxide 23 mmol/L (22-29); Chloride 108 mmol/L (96-108); Cholesterol 174 mg/dL (<200); Estimated Glomerular Filt Rate > 60; Glucose Fasting 128 mg/dL (60-99); HDL Cholesterol 38 mg/dL (>40); LDL Cholesterol Calculated 89 mg/dL (<100); Potassium 3.6 mmol/L (3.3-5.1); Sodium 140 mmol/L (135-145); Total Protein 6.3 g/dL (6.5-8.0); Triglycerides 237 mg/dL (<150)
[2025-02-11 08:05] LABS: TSH reflex Free T4 3.07 uIU/mL (0.32-4.0); Vitamin D 25-OH Total 37.9 ng/mL (>30)
== END 2025-02-11 06:12 | disposition home or self-care (01) ==
LOC: HO.LAB 06:11
PROVIDERS: PCP Internal Medicine; Visit Provider Internal Medicine
DX: D64.9 Anemia, unspecified (principal); E55.9 Vitamin D deficiency, unspecified; E78.00 Pure hypercholesterolemia, unspecified
CPT/HCPCS: 36415; 80053; 80061; 81001; 82306; 84443; 85025

== ENCOUNTER 2025-02-16 14:26 | Outpatient (AMB) | payer BC, SELFPAY ==
[2025-02-16 14:53] VITALS: BP 100/70; PULSE 88; RESP 16; TEMP 37.2; O2SAT 96; BMI 29.8
--- NOTE | 2025-02-16 14:53 | A.OFFPC_ITS ---
Vital Signs 02/16/25 14:53 Height 5 ft 7 in Weight 190 lb BMI 29.8 BP 100/70 Blood Pressure Location Lt brachial Position Sitting Respiration 16 Pulse 88 Pulse Source Pulse Oximeter Temp 99.0 F Temp Source Oral Pulse Oximetry (%) 96 Oxygen Delivery Method Room Air Intake Visit Reasons: [facility] 02/08 A-Fib and tachycardia Intake Note: Patient is here for hospital discharge follow up. Patient was discharged from [facility] in [place], [place] on 02/08/2025. Financial Sales Advisor Required: No Accompanied by: Self / Same As Patient Allergies No Known Allergies Allergy (Verified 02/16/25 15:51) Medication List - Last Reconciled 02/16/25 by JOHN Perez cyclobenzaprine 5 mg PO TID PRN diltiazem HCl ER 120 mg PO DAILY gabapentin 200 mg PO BEDTIME PRN lidocaine 5% leave on most painful area for up to 12 hrs topically PRN; lisinopril 2.5 mg PO DAILY 90 days meclizine (Antivert) 50 mg PO BID PRN meloxicam 15 mg PO DAILY PRN pantoprazole 40 mg PO ONCE PRN simvastatin 40 mg PO BEDTIME tamsulosin 0.4 mg PO BEDTIME zolpidem 10 mg PO BEDTIME PRN 30 days Tobacco use date assessed: 02/16/25 Dental Screening Dental Screen Date: 02/16/25 Did you have a dental visit in the last 12 months?: Yes Did you have a dental problem in the last 6 months where you did not have access to dental care?: No Was dental information given to patient?: Patient has dentist HPI [facility] 02/08 A-Fib and tachycardia HPI Details The patient is a 54-year-old male with past medical history of hypertension, hyperlipidemia who is presenting for post [facility] visit after detecting AFib via apple watch The patient went into [place] stating after returning from a cruise early in the morning. He noticed that over the last 24 hours he had multiple alerts on his Apple watch stating that he was in atrial fibrillation. He has noted occasional palpitation, but was not experiencing this at the time of the evaluation He denies any other symptoms. Say that he is otherwise in good health and feels okay. Denies headache, lightheadedness, chest pain, shortness of breath, he denies any pleuritic pain and denies any history of AFib The patient did admit to increased alcohol use while he was on vacation. Stating 5-6 alcohol drinks per day, which was atypical for him. The patient AFib was confirmed on EKG. Per chart review: Patient denies any history of this. Experiencing minimal symptoms, therefore not certain when it started despite apple watch alerts, therefore would defer cardioversion. [id number] score calculated equaling 1, therefore we will not start anticoagulation. Laboratory evaluation showed glucose 129 and proBNP 478, normal chest x-ray. The patient was diagnosed with new onset AFib who was referred to Cardiology it was told to follow up with PCP in a week In office, with the patient reports shortness of breath at times mostly during the daytime with exertion. He denies heart palpitation, denies chest pain, denies cough, lightheadedness or dizziness. Heart rate 82 in office, are rhythm regular upon auscultation. Patient reports that he told him initially that he wanted to go to [facility] Cardiology and he has an appointment on 03/07/25. There was also set up with Cardiology at [facility] end of appointment on 03/03/2025 and wanted to know if cardiology he is better at [facility]. 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 [facility] Medical History Obstructive sleep apnea Lumbar spondylosis Acid reflux Benign prostatic hyperplasia with urinary obstruction Carpal tunnel syndrome on both sides Overweight (BMI 25.0-29.9) Primary insomnia Paresthesia of both hands Vitamin D deficiency Cervical disc disease Renal calculi Asymptomatic microscopic hematuria Pancreatic cyst Impaired fasting glucose Pure hypercholesterolemia Essential hypertension Surgical History H/O colonoscopy History of esophagogastroduodenoscopy (EGD) Tonsillar cyst Status post excision of lipoma History of surgery on right wrist Family History Father Myocardial infarction Diabetes Hypertension Mother Hypertension Brother Hypertension Social History Housing: House Are you a primary wound care technician to a significant other at home: No Do you presently have visiting nurse or other home services: No Alcohol intake: current Alcohol intake frequency: holidays/special occasions only Patient Tobacco Use Status: Former Tobacco user Tobacco use type: Cigarette Years Smoked: 20 +/- e-Cigarette/Vaping Use: Never Used Second Hand Smoke Exposure: Yes service: No Current occupational status: employed 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 1. Little interest or pleasure in doing things: not at all 2. Feeling down, depressed, or hopeless: not at all 3. Trouble falling or staying asleep, or sleeping too much: several days 4. Feeling tired or having little energy: several days 5. Poor appetite or overeating: not at all 6. Feeling bad about yourself - or that you are a failure or have let yourself or your family down: not at all 7. Trouble concentrating on things, such as reading the newspaper or watching television: not at all 8. Moving or speaking so slowly that other people could have noticed. Or the opposite - being so fidgety or restless that you have been moving around a lot more than usual: not at all 9. Thoughts that you would be better off or of hurting yourself in some way: not at all Total score: 2 Depression Screening Interpretation: Negative Depression Screening Done: Yes Source: Developed by Drs. Jeison Plummer, Greer Carl, Zana Saini and colleagues, with an educational saloni from [employer]. Thrive Questionnaire Date Thrive assessed: 02/16/25 I am a: Patient What is your living situation today?: I have a steady place to live Within the past 12 months, did the food you bought not last and you didn't have the money to get more?: Never true Within the past 12 months, did you worry whether your food would run out before you got money to buy more?: Never true Do you have trouble paying for medicines?: No Do you have trouble getting transportation to medical appointments?: No Do you have trouble paying your heating and electricity bill?: No Do you have trouble taking care of your child, family member or friend?: No Do you have trouble with day-to-day activities such as bathing, preparing meals, shopping, managing finances, etc.?: No Are you currently unemployed and looking for a job?: No Are you interested in more education?: No Please select the resources that you would like help with: None Currently or been in a relationship where the following occur: No concerns reported THRIVE Score: 0 AUDIT C Alcohol Use Questionnaire (AUDIT-C) 1. How often do you have a drink containing alcohol?: 2-4 times a month Total Score: 2 Score Reviewed/Action Taken: No TRUNG-7 AMB Questionnaire TRUNG-7 Date TRUNG - 7 assessed: 02/16/25 Feeling nervous, anxious, or on edge: 1 = Several days Not being able to stop or control worryin = Not at all Worrying too much about different things: 1 = Several days Trouble relaxin = Several days Being so restless that it is hard to sit still: 1 = Several days Becoming easily annoyed or irritable: 0 = Not at all Feeling afraid as if something awful might happen: 0 = Not at all Total TRUNG-7 score (0-4 normal; 5-9 mild; 10-14 moderate; 15-21 severe): 4 Source: Developed by Drs. Jeison Plummer, Greer Carl, Zana Saini and colleagues, with an educational saloni from [employer]. Review of Systems Const Denies headache(s) Eyes Denies loss of vision ENT Denies dizziness, Denies headache(s) and Denies sore throat Card Denies chest pain, Denies syncope, Denies pedal edema, Denies edema, Denies leg edema, Denies lightheadedness and Reports dyspnea on exertion (Intermittent) Resp Denies cough, Denies hemoptysis, Reports dyspnea on exertion (Intermittent) and Denies wheezing GI Denies abdominal pain, Denies melena, Denies constipation, Denies diarrhea and Denies vomiting Neuro Denies Abnormal speech present, Denies dizziness, Denies syncope, Denies headache(s) and Denies loss of vision Angel/Lymph Denies easy bleeding and Denies easy bruising Aller/Immun Denies wheezing Physical exam (Primary Care) Vital Signs: Last Vital Signs Temp 99.0 F 02/16/25 14:53 Pulse 88 02/16/25 14:53 Resp 16 02/16/25 14:53 BP 100/70 02/16/25 14:53 Pulse Ox 96 02/16/25 14:53 Oxygen Delivery Method Room Air 02/16/25 14:53 BMI result Body Mass Index 29.8 Tobacco/Smoking Status: Tobacco use Status Tobacco use date assessed 02/16/25 02/16/25 15:02 Patient Tobacco Use Status Former Tobacco user 02/16/25 15:02 Tobacco use type Cigarette 02/16/25 15:02 e-Cigarette/Vaping Use Never Used 02/16/25 15:02 PHQ-9: PHQ-9 Score PHQ-9: Total score 2 02/16/25 16:08 Depression Screening Interpretation: Negative Thrive Assessment: Date of Thrive Assessment Date Thrive assessed 02/16/25 02/16/25 15:02 Currently or been in a relationship where the following occur: No concerns reported Const General: healthy appearing, no acute distress, alert and awake Nutritional Appearance: well nourished Orientation/consciousness: oriented to person, oriented to place and oriented to time HENMT Ears: external ears normal General nose exam: Normal external nose present Eyes Conjunctivae: conjunctivae normal Sclerae: sclerae normal Pupils: Equal, round and reactive pupils present Neck Neck: Yes no lymphadenopathy and Yes no JVD Thyroid: Thyroid normal Carotids: no bruits Resp Effort & Inspection: normal respiratory effort and not tachypneic Auscultation: no crackles, no rales, no rhonchi and no wheezes Cardio Rate: regular rate Rhythm: regular rhythm Heart sounds: no murmurs and normal S1 and S2 GI Palpation (GI): Soft to palpation and nontender Auscultation: normal bowel sounds Neuro General: oriented to person, oriented to place and oriented to time Cranial nerves: Yes Equal, round and reactive pupils present Speech: No Abnormal speech present Gait exam (Neuro): Normal gait present Extrem Right upper extremity: full ROM Left upper extremity: full ROM Right lower extremity: full ROM; no edema Left lower extremity: full ROM; no edema Coding Level of Care Code Est Pt Level 4 (77840) Diagnoses Paroxysmal atrial fibrillation I48.0 Atrial fibrillation type: paroxysmal SOB (shortness of breath) R06.02 Obstructive sleep apnea G47.33 Ex-smoker Z87.891 Time Spent (min) 39 Assessment & Plan Assessment & Plan (1) Afib: Code(s): I48.91 - Unspecified atrial fibrillation Category: Medical Qualifiers: Atrial fibrillation type: paroxysmal Qualified Code(s): I48.0 - Paroxysmal atrial fibrillation Plan: New onset AFib detected on patient up a watch prompting him to go to the [place] ED. EKG confirmed AFib, patient was deemed not a candidate for anticoagulation. He was started on Cardizem IV and transitioned to p.o. with positive rate control. Upcoming appointment with Cardiology. (2) SOB (shortness of breath): Code(s): R06.02 - Shortness of breath Category: Medical Plan: Shortness of breaths on exertion intermittently mostly during the daytime. Patient is ex-smoker, admit vaping instead. Encouraged cessation. (3) Obstructive sleep apnea: Code(s): G47.33 - Obstructive sleep apnea (adult) (pediatric) Category: Medical Plan: Continue CPAP (4) Ex-smoker: Code(s): Z87.891 - Personal history of nicotine dependence Category: Social Hx Plan: Reports vaping instead. Encouraged cessation
--- OUTSIDE RECORDS SUMMARY | 2025-02-16 15:47 | XMS_ITS | Patient Health Record ---
Author Organization [facility] Address [address] [place] [address] Care Team Providers Care Academic Support Director Name Role Phone Tucker Negron Primary Care [...] Insured Coverage Start Date Coverage End Date [facility] [address] [place] [address] [phone] [id number] 4 Johann Vasquez Self - patient is [...]
== END 2025-02-16 16:49 | disposition home or self-care (01) ==
LOC: HO.HMCH 14:34
PROVIDERS: PCP Internal Medicine
DX: I48.0 Paroxysmal atrial fibrillation (principal); R06.02 Shortness of breath; G47.33 Obstructive sleep apnea (adult) (pediatric); Z87.891 Personal history of nicotine dependence

== ENCOUNTER → 2025-02-16 14:26 | Outpatient (BNVA) | payer BC, SELFPAY | PROVIDERS: PCP Internal Medicine | DX: Z13.89 Encounter for screening for other disorder (principal) ==

== ENCOUNTER 2025-02-25 07:56 | Outpatient (AMB) | payer BC, SELFPAY ==
--- OUTSIDE RECORDS SUMMARY | 2025-02-25 08:00 | XMS_ITS | Patient Health Record ---
Author Organization [facility] Address [address] [place] [address] Care Team Providers Care Pole Maker Name Role Phone Tucker Negron Primary Care [...] Insured Coverage Start Date Coverage End Date [facility] and [facility] [address] [place] [address] [phone] [id number] 4 Johann Vasquez Self - patient is [...]
--- NOTE | 2025-02-25 08:11 | A.OFFVIS_ITS ---
Vital Signs 02/25/25 08:12 Height 5 ft 7 in Weight 185 lb 3.013 oz BMI 29.0 BP 100/70 Blood Pressure Location Lt brachial Position Sitting Pulse 92 Pulse Source Monitor Intake Visit Reasons: [facility] Follow up- A-Fib and tachycardia Sack Keeper Required: No Allergies No Known Allergies Allergy (Verified 02/25/25 08:13) Medication List - Last Reconciled 02/25/25 by KRISTIN Del Cid cyclobenzaprine 5 mg PO TID PRN diltiazem HCl ER 120 mg PO DAILY gabapentin 200 mg PO BEDTIME PRN lidocaine 5% leave on most painful area for up to 12 hrs topically PRN; lisinopril 2.5 mg PO DAILY 90 days meclizine (Antivert) 50 mg PO BID PRN meloxicam 15 mg PO DAILY PRN pantoprazole 40 mg PO ONCE PRN simvastatin 40 mg PO BEDTIME tamsulosin 0.4 mg PO BEDTIME zolpidem 10 mg PO BEDTIME PRN 30 days HPI HPI [facility] Follow up- A-Fib and tachycardia: Details: Johann is a 53-year-old male with past medical history of hypertension, hyperlipidemia, impaired fasting glucose, family history of premature CAD who was evaluated for shortness of breath with finding of only minimal nonobstructive coronary artery disease. He has recently seen in the emergency room with heart palpitations and finding of paroxysmal atrial fibrillation. He was started on diltiazem for heart rate control. Chads Vasc score of 1, hypertension. He was not started on anticoagulation. He now presents for cardiology follow-up. His last prior visit to our office was 04/05/2023. Today he reports that he was recently on a cruise and drank 4-5 alcoholic daily. This was atypical for routinely. During and following the cruise his apple watch was telling him he had AFib. He did feel some mild heart palpitations and fatigue when he had AFib. No concerning shortness of breath, chest discomfort, PND, orthopnea or edema. No lightheadedness, presyncope, syncope. He has a known history of sleep apnea and reports full compliance with his CPAP, even on his vacation. He quit smoking 2 years ago and has been vaping. He does not use any illicit substances. He smokes 1 caffeinated beverage per day. 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 PFSH Medical History Obstructive sleep apnea Lumbar spondylosis Acid reflux Benign prostatic hyperplasia with urinary obstruction Carpal tunnel syndrome on both sides Overweight (BMI 25.0-29.9) Primary insomnia Paresthesia of both hands Vitamin D deficiency Cervical disc disease Renal calculi Asymptomatic microscopic hematuria Pancreatic cyst Impaired fasting glucose Pure hypercholesterolemia Essential hypertension Surgical History H/O colonoscopy History of esophagogastroduodenoscopy (EGD) Tonsillar cyst Status post excision of lipoma History of surgery on right wrist Family History Father Myocardial infarction Diabetes Hypertension Mother Hypertension Brother Hypertension Social History Housing: House Are you a primary medicare insurance specialist to a significant other at home: No Do you presently have visiting nurse or other home services: No Alcohol intake: current Alcohol intake frequency: holidays/special occasions only Patient Tobacco Use Status: Former Tobacco user Tobacco use type: Cigarette Years Smoked: 20 +/- e-Cigarette/Vaping Use: Never Used Second Hand Smoke Exposure: Yes service: No Current occupational status: employed 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 Cognitive needs: No Hearing needs: No Vision needs: Yes (Glasses) Review of Systems Const All systems reviewed & are unremarkable except as noted in HPI and below Reports fatigue ENT Denies dizziness Card Denies chest pain, Denies chest pain at rest, Denies chest pain with activity, Denies rapid heart rate, Denies pedal edema, Denies edema, Denies leg edema, Denies lightheadedness, Denies palpitations, Denies dyspnea, Denies dyspnea on exertion and Denies orthopnea Resp Denies cough, Denies dyspnea and Denies dyspnea on exertion GI Denies hematochezia and Denies change in stool character Musc Denies abnormal gait, Denies limited range of motion, Denies muscle cramps, Herve es muscle weakness, Denies numbness, Denies radiating pain into limb, Denies stiffness and Denies tingling Neuro Denies abnormal gait, Denies dizziness, Denies numbness and Denies tingling Endo Reports fatigue and Denies palpitations Physical Exam Vital Signs: Last Vital Signs Pulse 92 02/25/25 08:12 BP 100/70 02/25/25 08:12 BMI result Body Mass Index 29.0 Const General: cooperative, healthy appearing, comfortable and no acute distress Orientation/consciousness: patient oriented x3 Neck Neck: Yes normal visual inspection and Yes no JVD Resp Effort & Inspection: normal respiratory effort Auscultation: clear to auscultation bilaterally, no rales, no rhonchi and no wheezes Cardio Rate: regular rate Rhythm: regular rhythm Heart sounds: S1 normal heart sound present, S2 normal heart sound present, no gallops, no murmurs and no rubs Neuro General: patient oriented x3 Extrem General: Yes normal to inspection, No no pedal edema and No calf tenderness Psych Appearance: grossly normal Mental Status: mental status grossly normal Speech and movement: Normal speech and movement present Office Procedures EKG Details: Today, read by me, Sinus rhythm, ST/ T wave abn leads III, aVF, V6, rate 92, Qtc 442ms [id number], Complete Assessment & Plan Assessment & Plan (1) Afib: Code(s): I48.91 - Unspecified atrial fibrillation Category: Medical Qualifiers: Atrial fibrillation type: paroxysmal Qualified Code(s): I48.0 - Paroxysmal atrial fibrillation Plan: [facility] [place] ER evaluation 02/07/2025 with finding of paroxysmal atrial fibrillation. Lab work done that day with no significant abnormalities. He was started on diltiazem CD 120 mg daily. Chads Vasc score 1, he was not put on anticoagulation. No recurrent heart palpitations or Apple watch notifications of AFib since that time. Will order Holter monitor for further evaluation. Will update echocardiogram to assess heart structurally. A CTA of the coronary arteries was done on 02/15/2023 and showed only minimal plaque, no significant stenosis, RCA dominant. No med changes made. (2) Essential hypertension: Code(s): I10 - Essential (primary) hypertension Category: Medical Plan: Blood pressure goal less than 130/80. Well controlled at present. No med changes made (3) Pure hypercholesterolemia: Code(s): E78.00 - Pure hypercholesterolemia, unspecified Category: Medical Plan: [place] LDL goal less than 100, will be less than 70 if he has full diagnosis of diabetes. Labs 02/11/2025 showed LDL 89. Continue statin therapy. Followed by his PCP Plan Time spent on chart review, documentation, interview and assessment Patient was informed and verbally consented to the use of an ambient scribe for clinic note documentation during this visit. I thoroughly discussed with the patient the likely etiology of his atrial fibrillation, emphasizing increased risk factors with age and potential triggers such as alcohol consumption. I conveyed the importance of consistent management with diltiazem 120 mg for rate control and scheduled further cardiac assessments, including echocardiogram and Holter monitoring, to track any recurrent episodes or cardiac function changes. I explained the current decision against anticoagulation due to his low stroke risk as assessed. We reviewed reducing alcohol intake to prevent arrhythmogenic stimuli. Patient was receptive to ongoing monitoring and follow-up to fine-tune management as necessitated by his symptoms and test results. Orders: Orders ECG 5 day holter monitor Today I48.0 - Paroxysmal atrial fibrillation CA echo transthoracic complete Today I48.0 - Paroxysmal atrial fibrillation Patient Instructions: - Continue diltiazem 120 mg as prescribed. - Limit alcohol intake; abstain whenever possible. - Undergo scheduled echocardiogram and Holter monitor tests. - Monitor for symptoms of palpitations or increased fatigue. - Follow up for the results of testing and adjust treatment as needed. Coding Level of Care Code Est Pt Level 4 (71417) Complex EM visit Add On G2211 Diagnoses Paroxysmal atrial fibrillation I48.0 Atrial fibrillation type: paroxysmal Essential hypertension I10 Pure hypercholesterolemia E78.00 CPT Codes EKG - CPT: 97732-[id number], Complete ([id number]) Time Spent (min) 28
[2025-02-25 08:12] VITALS: BP 100/70; PULSE 92; BMI 29.0
== END 2025-02-25 08:44 | disposition home or self-care (01) ==
LOC: HO.HCS 07:57
PROVIDERS: PCP Internal Medicine; Visit Provider Nurse Practitioner Family
DX: I48.0 Paroxysmal atrial fibrillation (principal); I10 Essential (primary) hypertension; E78.00 Pure hypercholesterolemia, unspecified
CPT/HCPCS: 93010; 99214

== ENCOUNTER → 2025-02-25 07:56 | Outpatient (BNVA) | payer BC, SELFPAY | PROVIDERS: PCP Internal Medicine; Visit Provider Nurse Practitioner Family | DX: I48.91 Unspecified atrial fibrillation (principal) | CPT/HCPCS: 93005 ==

== ENCOUNTER 2025-03-10 14:22 | Outpatient (AMB) | payer BC, SELFPAY ==
[2025-03-10 14:24] VITALS: BP 98/70; PULSE 95; O2SAT 96; BMI 29.0
--- NOTE | 2025-03-10 14:24 | A.OFFPC_ITS ---
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 Required: No Accompanied by: Self / Same As Patient Allergies No Known Allergies Allergy (Verified 03/10/25 15:11) Medication List - Last Reconciled 03/10/25 by Tucker Negron MD cyclobenzaprine 5 mg PO TID PRN diltiazem HCl ER 120 mg PO DAILY gabapentin 200 mg PO BEDTIME PRN lidocaine 5% leave on most painful area for up to 12 hrs topically PRN; lisinopril 2.5 mg PO DAILY 90 days meclizine (Antivert) 50 mg PO BID PRN meloxicam 15 mg PO DAILY PRN pantoprazole 40 mg PO ONCE PRN simvastatin 40 mg PO BEDTIME tamsulosin 0.4 mg PO BEDTIME zolpidem 10 mg PO BEDTIME PRN 30 days Tobacco use date assessed: 03/10/25 Dental Screening Dental Screen Date: 03/10/25 Did you have a dental visit in the last 12 months?: Yes Did you have a dental problem in the last 6 months where you did not have access to dental care?: No Was dental information given to patient?: Patient has dentist HPI 4 Months f/u HPI Details Patient comes in today for his follow up visit States that he feels okay He went to the ER last month for further evaluation when he noticed on his smart watch indicating that he was in atrial fibrillation when he was experiencing some palpitations He was apparently back in sinus rhythm when he was being evaluated in the ER; labs done all came back normal as well He was started on Cardizem CD 120 mg QD and advised that he does not need any anticoagulation at the time A Holter monitor echocardiogram was ordered for further evaluation Patient states that he has not had any recurrence of his palpitations since his ER visit last month He denies any headaches or dizziness Denies any chest pains, no SOB No nausea/vomiting, no abdominal pain No change in bowel habits noted [facility] Medical History (Updated 03/14/25 @ 20:30 by Tucker Negron MD) Paroxysmal atrial fibrillation Obstructive sleep apnea Lumbar spondylosis Acid reflux Benign prostatic hyperplasia with urinary obstruction Carpal tunnel syndrome on both sides Overweight (BMI 25.0-29.9) Primary insomnia Paresthesia of both hands Vitamin D deficiency Cervical disc disease Renal calculi Asymptomatic microscopic hematuria Pancreatic cyst Impaired fasting glucose Pure hypercholesterolemia Essential hypertension Surgical History H/O colonoscopy History of esophagogastroduodenoscopy (EGD) Tonsillar cyst Status post excision of lipoma History of surgery on right wrist Family History Father Myocardial infarction Diabetes Hypertension Mother Hypertension Brother Hypertension Social History Housing: House Are you a primary personal care worker to a significant other at home: No Do you presently have visiting nurse or other home services: No Alcohol intake: current Alcohol intake frequency: holidays/special occasions only Patient Tobacco Use Status: Former Tobacco user Tobacco use type: Cigarette Years Smoked: 20 +/- e-Cigarette/Vaping Use: Never Used Second Hand Smoke Exposure: Yes service: No Current occupational status: employed 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 1. Little interest or pleasure in doing things: not at all 2. Feeling down, depressed, or hopeless: not at all 3. Trouble falling or staying asleep, or sleeping too much: several days 4. Feeling tired or having little energy: several days 5. Poor appetite or overeating: not at all 6. Feeling bad about yourself - or that you are a failure or have let yourself or your family down: not at all 7. Trouble concentrating on things, such as reading the newspaper or watching television: not at all 8. Moving or speaking so slowly that other people could have noticed. Or the opposite - being so fidgety or restless that you have been moving around a lot more than usual: not at all 9. Thoughts that you would be better off or of hurting yourself in some way: not at all Total score: 2 Depression Screening Interpretation: Negative Depression Screening Done: Yes 03640 - PHQ-9 Billing: Yes Source: Developed by Drs. Jeison Plummer, Greer Carl, Zana Saini and colleagues, with an educational saloni from [email or web address]. Thrive Questionnaire Date Thrive assessed: 03/10/25 I am a: Patient What is your living situation today?: I have a steady place to live Within the past 12 months, did the food you bought not last and you didn't have the money to get more?: Never true Within the past 12 months, did you worry whether your food would run out before you got money to buy more?: Never true Do you have trouble paying for medicines?: No Do you have trouble getting transportation to medical appointments?: No Do you have trouble paying your heating and electricity bill?: No Do you have trouble taking care of your child, family member or friend?: No Do you have trouble with day-to-day activities such as bathing, preparing meals, shopping, managing finances, etc.?: No Are you currently unemployed and looking for a job?: No Are you interested in more education?: No Please select the resources that you would like help with: None Currently or been in a relationship where the following occur: No concerns reported THRIVE Score: 0 AUDIT C Alcohol Use Questionnaire (AUDIT-C) 1. How often do you have a drink containing alcohol?: 2-4 times a month 2. How many drinks containing alcohol do you have on a typical day when you are drinking?: 1 or 2 3. How often do you have six or more drinks on one occasion?: Never Total Score: 2 Score Reviewed/Action Taken: Yes TRUNG-7 AMB Questionnaire TRUNG-7 Date TRUNG - 7 assessed: 03/10/25 Feeling nervous, anxious, or on edge: 1 = Several days Not being able to stop or control worryin = Not at all Worrying too much about different things: 1 = Several days Trouble relaxin = Several days Being so restless that it is hard to sit still: 1 = Several days Becoming easily annoyed or irritable: 0 = Not at all Feeling afraid as if something awful might happen: 0 = Not at all Total TRUNG-7 score (0-4 normal; 5-9 mild; 10-14 moderate; 15-21 severe): 4 Source: Developed by Drs. Jeison Plummer, Greer Carl, Zana Saini and colleagues, with an educational saloni from [email or web address]. Review of Systems Const Denies chills, Denies fatigue, Denies fever(s) and Denies headache(s) ENT Denies dysphagia, Denies dizziness, Denies otalgia, Denies headache(s), Denies neck pain, Denies odynophagia and Denies sore throat Card Denies chest pain, Denies rapid heart rate, Denies irregular heart rhythm (no recurrence since last month), Denies palpitations and Denies dyspnea Resp Denies chest congestion, Denies cough and Denies dyspnea GI Denies abdominal pain, Denies constipation, Denies dysphagia, Denies heartburn, Denies diarrhea, Denies nausea, Denies odynophagia and Denies vomiting Denies difficulty urinating, Denies dysuria, Denies urinary frequency and Denies urinary urgency Musc Reports back pain (increased over the lower back ), Denies arthralgias, Denies neck pain and Reports radiating pain into limb (into R leg at times) Skin/Breast Denies rash Neuro Denies dizziness, Denies headache(s) and Denies paresthesias Endo Denies fatigue and Denies palpitations Physical exam (Primary Care) Vital Signs: Last Vital Signs Pulse 95 03/10/25 14:24 BP 98/70 03/10/25 14:24 Pulse Ox 96 03/10/25 14:24 Oxygen Delivery Method Room Air 03/10/25 14:24 BMI result Body Mass Index 29.0 Tobacco/Smoking Status: Tobacco use Status Tobacco use date assessed 03/10/25 03/10/25 14:34 Patient Tobacco Use Status Former Tobacco user 03/10/25 14:34 Tobacco use type Cigarette 03/10/25 14:34 e-Cigarette/Vaping Use Never Used 03/10/25 14:34 PHQ-9: PHQ-9 Score PHQ-9: Total score 2 03/10/25 15:18 Depression Screening Interpretation: Negative Thrive Assessment: Date of Thrive Assessment Date Thrive assessed 03/10/25 03/10/25 14:34 Currently or been in a relationship where the following occur: No concerns reported Const General: no acute distress and alert HENMT Ears: TM's normal bilaterally and EAC's normal Throat: Yes posterior oropharynx normal and Yes tonsils normal Neck Neck: Yes supple and No lymphadenopathy Thyroid: Thyroid normal Resp Auscultation: clear to auscultation bilaterally, no rales and no wheezes Cardio Rate: regular rate Rhythm: regular rhythm Heart sounds: no murmurs GI Palpation (GI): Soft to palpation and nontender Auscultation: normal bowel sounds General: Yes no CVA tenderness Back/Spine/Pelvis Back: no CVA tenderness Thoracic/Lumbar Spine: paraspinal muscle tenderness bilaterally in the mid lumbar and in the lower lumbar and lumbar spinal tenderness Skin Rashes: no rashes Extrem General: Yes no clubbing, cyanosis or edema Results Reviewed Results Reviewed: Laboratory Tests 02/11/25 02/11/25 06:20 06:23 WBC 8.0 Hgb 15.7 Hct 46.0 Plt Count 237 Sodium 140 Potassium 3.6 Creatinine 0.80 Estimated GFR > 60 Fasting Glucose 128 H Calcium 8.9 AST 20 ALT 32 Triglycerides 237 H Cholesterol 174 LDL Cholesterol, Calc 89 HDL Cholesterol 38 L 25-OH Vitamin D Total 37.9 TSH 3.07 Ur Specific [place] >= 1.030 H Urine Protein Negative Urine Glucose (UA) Negative Urine Blood Trace H Urine Nitrite Negative Ur Leukocyte Esterase Negative Coding Level of Care Code Est Pt Level 4 (44034) Diagnoses Paroxysmal atrial fibrillation I48.0 Essential hypertension I10 Pure hypercholesterolemia E78.00 Impaired fasting glucose R73.01 Pancreatic cyst K86.2 Lesion of right ramona kidney N28.9 Obstructive sleep apnea G47.33 Right foot pain M79.671 Lumbar spondylosis M47.816 Cervical disc disease M50.90 Vitamin D deficiency E55.9 Benign prostatic hyperplasia with urinary obstruction N40.1; N13.8 Renal calculi N20.0 Primary insomnia F51.01 Overweight (BMI 25.0-29.9) E66.3 Additional Codes PHQ-9 - 15640 - PHQ-9 Billing: Yes ([id number]) Assessment & Plan Assessment & Plan (1) Paroxysmal atrial fibrillation: Code(s): I48.0 - Paroxysmal atrial fibrillation Category: Medical Plan: Patient went to the ER at [facility] last month for palpitations; his smart watch alerted him that he was reportedly in atrial fibrillation at the time of his sy mptoms Work ups done at the ER all came back normal and EKG done at the time revealed sinus rhythm Patient was started on Diltiazem CD 120 mg QD As his CHADsVasc score was = 1, he was not started on any anticoagulation CTA of the coronary arteries done on 02/15/2023 showed only minimal plaque, no significant stenosis, RCA dominant Patient states that he has not had any recurrence of his symptoms since his ER visit He was seen by cardiology for evaluation a couple of weeks ago and is currently scheduled for echocardiogram and Holter monitor next month for further evaluation (2) Essential hypertension: Code(s): I10 - Essential (primary) hypertension Category: Medical Plan: Reinforced low-sodium diet -? goal is systolic BP of 120 mm or less Continue Lisinopril 2.5 mg QD Patient is reminded to continue monitoring his blood pressure regularly (3) Pure hypercholesterolemia: Code(s): E78.00 - Pure hypercholesterolemia, unspecified Category: Medical Plan: His coronary artery CT scan done on 02/15/2023 showed only minimal plaque with no significant stenosis, RCA dominant, vessel normal Results of his labs done last month reviewed and discussed with patient Reinforced low cholesterol diet Continue Simvastatin 40 mg QD Will recheck his labs and fasting lipids in 4 months for follow up (4) Impaired fasting glucose: Code(s): R73.01 - Impaired fasting glucose Category: Medical Plan: His HgbA1c was normal at 5.7% and 5.8% when previously checked back in 2022 and again earlier this year Reinforced low calorie diet /exercise as tolerated (5) Pancreatic cyst: Code(s): K86.2 - Cyst of pancreas Category: Medical Plan: Patient had a 1.3 cm hypodense lesion along the proximal body of the pancreas that was initially seen incidentally on his abdominal and pelvic CT done on 09/13/2019 that raised suspicions of a small cystic lesion and further workups with MRI/ MRCP was recommended at the time He had an abdominal MRI done in September 2019 that suggested an intraductal papillary mucinous tumor and recommended a follow up MRI with and without contrast in 6-12 months? Repeat MRI done in January 2022 showed a stable 6 x 10 mm cyst in the head of the pancreas from previous exams; the pancreas is otherwise normal and the main pancreatic duct is normal? Patient is currently asymptomatic and has no acute GI symptoms Per his request, he was sent for a repeat abdominal US at his last visit to ensure stability of his pancreatic cyst - US done in August 2024 revealed that the pancreas was not well visualized and was obscured by bowel gas; (+) hypoechoic area in the liver is probably focal fat sparing. Echogenic lesion in the right kidney 6 mm could be a cortical stone versus angiomyolipoma. recommend correlation with follow-up ultrasound in 6 months. There was also a small cyst in the spleen at around 8 mm in size Will now repeat a right renal US (6 months) for follow up (6) Lesion of right ramona kidney: Code(s): N28.9 - Disorder of kidney and ureter, unspecified Category: Medical Plan: (+) echogenic right kidney lesion seen on abdominal US in August 2024 and recommend 6 months follow up - will now send patient for follow up US Will also refer him to urology for further evaluation and management (7) Obstructive sleep apnea: Code(s): G47.33 - Obstructive sleep apnea (adult) (pediatric) Category: Medical Plan: Continue using his CPAP device when sleeping at night He is currently using Autopap at 6 to 16 cm H2O when sleeping at night and is benefitting from its nightly use Follow up with Sleep Medicine as scheduled (8) Right foot pain: Code(s): M79.671 - Pain in right foot Category: Medical Plan: Follow up with podiatry as scheduled (9) Lumbar spondylosis: Code(s): M47.816 - Spondylosis without myelopathy or radiculopathy, lumbar region Category: Medical Plan: Lumbar spine x-rays done back in 2012 revealed (+) mild spondylosis Reinforced activity and weight-lifting restrictions Continue Methocarbamol 750 mg BID PRN Will refer him now to pain management for further recommendations and interventions to help control his recently increasing pain over his lower back (10) Cervical disc disease: Code(s): M50.90 - Cervical disc disorder, unspecified, unspecified cervical region Category: Medical Plan: Cervical spine x-rays done a few years ago (2019) showed (+)? multilevel cervical disc disease Continue Methocarbamol PRN (11) Vitamin D deficiency: Code(s): E55.9 - Vitamin D deficiency, unspecified Category: Medical Plan: Continue Vitamin D3 1000 units QD (12) Benign prostatic hyperplasia with urinary obstruction: Code(s): N40.1 - Benign prostatic hyperplasia with lower urinary tract symptoms; N13.8 - Other obstructive and reflux uropathy Category: Medical Plan: Continue Tamsulosin 0.4 mg Q HS (13) Renal calculi: Code(s): N20.0 - Calculus of kidney Category: Medical Plan: Asymptomatic Renal US done in March 2019 showed (+)? bilateral non-obstructing renal calculi Follow-up with urology as scheduled (14) Primary insomnia: Code(s): F51.01 - Primary insomnia Category: Medical Plan: Sleep hygiene reinforced Continue Zolpidem 10 mg Q HS PRN (15) Overweight (BMI 25.0-29.9): Code(s): E66.3 - Overweight Category: Medical Plan: Reinforced diet/exercise as tolerated/lose weight Plan Follow up in 4 months Orders: Orders US renal RT 03/10/25 N28.9 - Disorder of kidney and ureter, unspecified Complete Blood Count Auto Diff 4 Months D64.9 - Anemia, unspecified Comprehensive [place]. Panel Fast 4 Months E78.00 - Pure hypercholesterolemia, unspecified US renal RT Today N28.9 - Disorder of kidney and ureter, unspecified US abdomen complete 03/10/25 R10.9 - Unspecified abdominal pain Lipid Panel 4 Months E78.00 - Pure hypercholesterolemia, unspecified Hemoglobin A1c 4 Months R73.01 - Impaired fasting glucose Referrals Urology Referral N28.9 - Disorder of kidney and ureter, unspecified
--- OUTSIDE RECORDS SUMMARY | 2025-03-10 15:15 | XMS_ITS | Patient Health Record ---
Author Organization [facility] Address [address] [place] [address] Care Team Providers Care Radio Adjuster Name Role Phone Tucker Negron Primary Care [...] Insured Coverage Start Date Coverage End Date [facility] and [facility] [address] [place] [address] [phone] [id number] Johann Vasquez Self - patient is [...]
== END 2025-03-10 15:20 | disposition home or self-care (01) ==
LOC: HO.HMCH 14:22
PROVIDERS: PCP Internal Medicine; Visit Provider Internal Medicine
DX: I48.0 Paroxysmal atrial fibrillation (principal); I10 Essential (primary) hypertension; E78.00 Pure hypercholesterolemia, unspecified; R73.01 Impaired fasting glucose; K86.2 Cyst of pancreas; N28.9 Disorder of kidney and ureter, unspecified; G47.33 Obstructive sleep apnea (adult) (pediatric); M79.671 Pain in right foot; M47.816 Spondylosis without myelopathy or radiculopathy, lumbar region; M50.90 Cervical disc disorder, unspecified, unspecified cervical region; E55.9 Vitamin D deficiency, unspecified; N40.1 Benign prostatic hyperplasia with lower urinary tract symptoms; N13.8 Other obstructive and reflux uropathy; N20.0 Calculus of kidney; F51.01 Primary insomnia; E66.3 Overweight

== ENCOUNTER → 2025-03-10 14:22 | Outpatient (BNVA) | payer BC, SELFPAY | PROVIDERS: PCP Internal Medicine; Visit Provider Internal Medicine | DX: I48.0 Paroxysmal atrial fibrillation (principal); I10 Essential (primary) hypertension; E78.00 Pure hypercholesterolemia, unspecified; R73.01 Impaired fasting glucose; K86.2 Cyst of pancreas; N28.9 Disorder of kidney and ureter, unspecified; G47.33 Obstructive sleep apnea (adult) (pediatric); M79.671 Pain in right foot; M47.816 Spondylosis without myelopathy or radiculopathy, lumbar region; M50.90 Cervical disc disorder, unspecified, unspecified cervical region; E55.9 Vitamin D deficiency, unspecified; N40.1 Benign prostatic hyperplasia with lower urinary tract symptoms; N13.8 Other obstructive and reflux uropathy; N20.0 Calculus of kidney; F51.01 Primary insomnia; E66.3 Overweight; Z68.29 Body mass index [BMI] 29.0-29.9, adult; Z79.899 Other long term (current) drug therapy; Z99.89 Dependence on other enabling machines and devices; Z13.30 Encounter for screening examination for mental health and behavioral disorders, unspecified; Z13.31 Encounter for screening for depression | CPT/HCPCS: 96127 ==

== ENCOUNTER → 2025-03-25 07:38 | Outpatient (REF) | payer BC, SELFPAY ==
--- NOTE | 2025-03-25 07:45 | CA_ITS ---
Transthoracic Echocardiogram Patient (Last, First, Middle): Johann Vasquez L Gender: Male Date of : 1970 Age: 55 Procedure Date: 03/25/2025 Procedure Type: Transthoracic Echocardiogram Location: OP Height: 167.64 cm Weight: 76.66 kg BSA: 1.86 m2 Heart Rate: bpm BP: 120 / 78 mmHg Paper Reclaiming Machine Operator: TO Referring MD: Melissa Luna PYROTECHNICIAN-Juanpablo Prism Inspector: Moody Doshi MD Symptoms: I48.0 - Paroxysmal atrial fibrillation Study Quality: Adequate ECG Rhythm: Sinus Conclusions: - 1. Normal LV ejection fraction 55-60% 2. Normal cardiac valvular Dopplers 3. No gross pericardial effusion Findings Left Ventricle Normal left ventricular size, thickness, and systolic function. The visually estimated ejection fraction is between 55-60%. Spectral Doppler is indicative of a normal filling pattern. Right Ventricle Normal right ventricular cavity size and systolic function. Atria Both atria are normal in size. There is no evidence of interatrial shunt. Aortic Valve The aortic valve structure and function is likely normal. There is no aortic valve stenosis. There is no aortic valve regurgitation. Mitral Valve Normal mitral valve structure and function. There is trace mitral valve regurgitation. There is no mitral valve stenosis. Pulmonic Valve The pulmonic valve was not well visualized. Tricuspid Valve The tricuspid valve was not well visualized. Tricuspid regurgitation envelope is inadequate for calculation of right ventricular systolic pressure. Normal right atrial pressure. Great Vessels All visible segments of the aorta are normal in size. The pulmonary artery was not well visualized. There is no dilatation of the ascending aorta measuring 3.30 cm. Venous The inferior vena cava is normal in size and collapses greater than 50% with inspiration. Pericardium/Pleural There is no evidence of pericardial effusion. Prior Study Comparison No significant change compared to prior study dated: 01/22/2023. Measurements 2D Linear Measurements IVSd: 0.82 0.6-0.9/0.6-1.0 cm LVIDd: 4.52 3.9-5.3/4.2-5.9 cm LVIDd Index: 2.43 2.4-3.2/2.2-3.1 cm/m2 LVIDs: 3.14 2.0-3.6 cm LVPWd: 0.88 0.7-1.1 cm LA Diam: 2.60 2.7-3.8/3.0-4.0 cm LAIDs Index: 1.40 1.5-2.3 cm/m2 LV Mass: 154.35 67-162/88-224 g LV Mass Index: 82.98 43-95/49-115 g/m2 LVOT Diam: 2.40 3.0+(-)1.3 cm 2D Systolic Function EF 4C: 55.00 >55% EF 2C: 57.10 >55% Mitral Valve MV Pk E: 0.76 MV PK A: 0.62 MV Decel Time: 174.00 E/A: 1.20 E'Lateral: 8.59 E'Medial: 7.40 E/E' Med: 10.20 E/E' Lat: 8.80 PHT: 51.00 MVA PHT: 4.31 Decel Noble: 4.36 Aortic Valve AoV Pk Sg: 1.39 AoV Mn Sg: 1.01 AoV VTI: 0.28 AoV Pk Grad: 8.00 Aov Mn Grad: 4.00 ALBA Cont.VTI: 3.50 LVOT LVOT Pk Sg: 1.17 LVOT Mn Sg: 0.70 LVOT VTI: 0.21 LVOT Pk Grad: 5.00 LVOT Mn Grad: 2.00 LVOT Diam: 2.40 LVOT Area: 4.52 Diastolic Function MV Pk E: 0.76 MV Pk A: 0.62 E/A: 1.20 E'Medial: 7.40 E/E' Med: 10.20 E' Laterial: 8.59 E/E' Lat: 8.80 Right Ventricle TAPSE (mm): 19.90 TVS' Sg: 12.30 Tricuspid Valve RA Press: 3.00 Great Vessels Aorta Sinus of Valsalva: 3.56 2.0-3.5 cm Ao Asc: 3.30 2.1-3.4 cm Updated in Other Vendor System with Status of Final Moody Doshi MD electronically signed on 03/26/2025 2:46:06 PM with status of Final
== END ==
LOC: HO.CARD 07:38
PROVIDERS: PCP Internal Medicine; Visit Provider Nurse Practitioner Family
DX: I48.0 Paroxysmal atrial fibrillation (principal)
CPT/HCPCS: 93242; 93306

== ENCOUNTER → 2025-03-25 07:45 | Outpatient (BNV) | payer BC, SELFPAY | PROVIDERS: PCP Internal Medicine; Visit Provider Internal Medicine Cardiovascular Disease | DX: I48.0 Paroxysmal atrial fibrillation (principal) | CPT/HCPCS: 93306 ==

== ENCOUNTER 2025-04-08 08:14 | Outpatient (AMB) | payer BC, SELFPAY ==
[2025-04-08 08:27] VITALS: BP 90/62; PULSE 91; BMI 29.0
--- NOTE | 2025-04-08 08:27 | A.OFFVIS_ITS ---
Vital Signs 04/08/25 08:27 Height 5 ft 7 in Weight 185 lb 3.013 oz BMI 29.0 BP 90/62 Blood Pressure Location Rt brachial Position Sitting Pulse 91 Pulse Source Pulse Oximeter Intake Visit Reasons: f/u after testing Radiology Ct Technologist Required: No Allergies No Known Allergies Allergy (Verified 04/08/25 08:29) Medication List - Last Reconciled 04/08/25 by Melissa Luna, [employer]-C cyclobenzaprine 5 mg PO TID PRN diltiazem HCl ER 120 mg PO DAILY gabapentin 200 mg PO BEDTIME PRN lidocaine 5% leave on most painful area for up to 12 hrs topically PRN; lisinopril 2.5 mg PO DAILY 90 days meclizine (Antivert) 50 mg PO BID PRN meloxicam 15 mg PO DAILY PRN pantoprazole 40 mg PO ONCE PRN simvastatin 40 mg PO BEDTIME tamsulosin 0.4 mg PO BEDTIME zolpidem 10 mg PO BEDTIME PRN 30 days HPI HPI f/u after testing: Details: Johann is a 55-year-old male with past medical history of hypertension, hyperlipidemia, impaired fasting glucose, family history of premature CAD, minimal nonobstructive coronary artery disease, paroxysmal atrial fibrillation, not on anticoagulation who presents for follow-up. Today he reports that his last episode of atrial fibrillation occurred following a cruise where he was drinking 4-5 alcoholic beverage daily. This was atypical for him. At this time he no longer drinks alcohol routinely. He has not had any recurrent heart palpitations and no concerns for atrial fibrillation. He tells me he ran out of diltiazem. No concerning heart palpitations, shortness of breath, chest discomfort, PND, orthopnea or edema. No lightheadedness, presyncope, syncope. He has a known history of sleep apnea and reports full compliance with his CPAP. He drinks 1 caffeinated beverage per day. 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 [facility] Medical History Paroxysmal atrial fibrillation Obstructive sleep apnea Lumbar spondylosis Acid reflux Benign prostatic hyperplasia with urinary obstruction Carpal tunnel syndrome on both sides Overweight (BMI 25.0-29.9) Primary insomnia Paresthesia of both hands Vitamin D deficiency Cervical disc disease Renal calculi Asymptomatic microscopic hematuria Pancreatic cyst Impaired fasting glucose Pure hypercholesterolemia Essential hypertension Surgical History H/O colonoscopy History of esophagogastroduodenoscopy (EGD) Tonsillar cyst Status post excision of lipoma History of surgery on right wrist Family History Father Myocardial infarction Diabetes Hypertension Mother Hypertension Brother Hypertension Social History Housing: House Are you a primary reproductive healthcare assistant to a significant other at home: No Do you presently have visiting nurse or other home services: No Alcohol intake: current Alcohol intake frequency: holidays/special occasions only Patient Tobacco Use Status: Former Tobacco user Tobacco use type: Cigarette Years Smoked: 20 +/- e-Cigarette/Vaping Use: Never Used Second Hand Smoke Exposure: Yes service: No Current occupational status: employed 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 Current occupational exposures/hazards: No Cognitive needs: No Hearing needs: No Vision needs: Yes (Glasses) Review of Systems Const All systems reviewed & are unremarkable except as noted in HPI and below ENT Denies dizziness Card Denies chest pain, Denies chest pain at rest, Denies chest pain with activity, Denies rapid heart rate, Denies pedal edema, Denies edema, Denies leg edema, Denies lightheadedness, Denies palpitations, Denies dyspnea, Denies dyspnea on exertion and Denies orthopnea Resp Denies cough, Denies dyspnea and Denies dyspnea on exertion GI Denies hematochezia and Denies change in stool character Musc Denies abnormal gait, Denies limited range of motion, Denies muscle cramps, Denies muscle weakness, Denies numbness, Denies radiating pain into limb, Denies stiffness and Denies tingling Neuro Denies abnormal gait, Denies dizziness, Denies numbness and Denies tingling Endo Denies palpitations Physical Exam Vital Signs: Last Vital Signs Pulse 91 04/08/25 08:27 BP 90/62 04/08/25 08:27 BMI result Body Mass Index 29.0 Const General: cooperative, healthy appearing, comfortable and no acute distress Orientation/consciousness: patient oriented x3 Neck Neck: Yes normal visual inspection and Yes no JVD Resp Effort & Inspection: normal respiratory effort Auscultation: clear to auscultation bilaterally, no crackles, no rales, no rhonchi and no wheezes Cardio Jugular venous distension: no JVD Rate: regular rate Rhythm: regular rhythm Heart sounds: S1 normal heart sound present, S2 normal heart sound present, no gallops, no murmurs and no rubs GI Inspection: Yes normal to inspection Skin General skin exam: no rashes or lesions noted Neuro General: patient oriented x3 Extrem General: Yes normal to inspection, No no pedal edema and No calf tenderness Psych Appearance: grossly normal Mental Status: mental status grossly normal Speech and movement: Normal speech and movement present Assessment & Plan Assessment & Plan (1) Afib: Code(s): I48.91 - Unspecified atrial fibrillation Category: Medical Qualifiers: Atrial fibrillation type: paroxysmal Qualified Code(s): I48.0 - Paroxysmal atrial fibrillation Plan: [facility] ER evaluation 02/07/2025 with finding of paroxysmal atrial fibrillation, following a cruise where he had increased alcohol intake. He was put on diltiazem CD 120 mg daily at that time and has since run out. Chads Vasc score 1, he was not put on anticoagulation. No recurrent heart palpitations or Apple watch notifications of AFib since that time. Holter monitor done 03/25/2025 for 5 days showed sinus rhythm with average heart rate 94, 39% heart rate over 100, Rare ectopy. Echocardiogram done 03/25/2025 showed EF 55-60%, normal valves, atria normal size. A CTA of the coronary arteries was done on 02/15/2023 and show ed only minimal plaque, no significant stenosis, RCA dominant. He is currently not on any rate slowing medications. Will start him on metoprolol XL 25 mg daily. His blood pressure is on the low side and he was instructed to call if he is experiencing lightheadedness. He will notify us if he has recurrent AFib. Cardiology follow-up 6 months, sooner if needed. (2) Essential hypertension: Code(s): I10 - Essential (primary) hypertension Category: Medical Plan: Blood pressure goal less than 130/80. On low side today. Starting low-dose metoprolol instead of diltiazem. (3) Pure hypercholesterolemia: Code(s): E78.00 - Pure hypercholesterolemia, unspecified Category: Medical Plan: [place] LDL goal less than 100, will be less than 70 if he has full diagnosis of diabetes. Labs 02/11/2025 showed LDL 89. Continue statin therapy. Followed by his PCP Plan I discussed with the patient the importance of restarting medication to manage his heart rate and prevent atrial fibrillation, while monitoring his blood pressure closely. We reviewed the role of CPAP in managing sleep apnea and its impact on reducing atrial fibrillation risk. I advised minimizing alcohol intake as it can trigger atrial fibrillation and emphasized the importance of staying hydrated, especially in hot weather. The patient was instructed to use his smartwatch to monitor for atrial fibrillation symptoms and to report any episodes. Follow-up was scheduled for six months, with the option for earlier consultation if symptoms arise. Medications: New metoprolol succinate ER 25 mg PO DAILY 90 tabs 3RF Patient Instructions: - Start Metoprolol l as prescribed, monitor blood pressure. - Use CPAP machine consistently to manage sleep apnea. - Stay hydrated, especially in hot weather. - Minimize alcohol consumption to reduce atrial fibrillation risk. - Monitor for atrial fibrillation symptoms with smartwatch, report any episodes. - Follow-up in six months or sooner if symptoms recur. Patient was informed and verbally consented to the use of an ambient scribe for clinic note documentation during this visit. Visit time spent on chart review, interview, assessment, orders, documentation. Coding Level of Care Code Est Pt Level 4 (18081) Complex EM visit Add On G2211 Diagnoses Paroxysmal atrial fibrillation I48.0 Atrial fibrillation type: paroxysmal Essential hypertension I10 Pure hypercholesterolemia E78.00 Time Spent (min) 28
--- OUTSIDE RECORDS SUMMARY | 2025-04-08 08:27 | XMS_ITS | Patient Health Record ---
Author Organization [facility] Address [address] [place] [address] Care Team Providers Care Airplane Dispatcher Name Role Phone Tucker Negron Primary Care [...] Insured Coverage Start Date Coverage End Date [facility] and [facility] [address] [place] [address] [phone] [id number] Johann Vasquez Self - patient is [...]
== END 2025-04-08 08:59 | disposition home or self-care (01) ==
LOC: HO.HCS 08:15
PROVIDERS: PCP Internal Medicine; Visit Provider Nurse Practitioner Family
DX: I48.0 Paroxysmal atrial fibrillation (principal); I10 Essential (primary) hypertension; E78.00 Pure hypercholesterolemia, unspecified
CPT/HCPCS: 99214

== ENCOUNTER 2025-04-14 11:20 | Outpatient (AMB) | payer BC, SELFPAY ==
--- OUTSIDE RECORDS SUMMARY | 2025-04-14 12:05 | XMS_ITS | Patient Health Record ---
Author Organization [facility] Address [address] [place] [address] Care Team Providers Care Seasonal Tax Preparer Name Role Phone Jeison Lackey Jaycee [phone] Reason For Referral No Information Plan Of Treatment No Information
--- OUTSIDE RECORDS SUMMARY | 2025-04-14 12:05 | XMS_ITS | Patient Health Record ---
Author Organization [facility] Address [address] [place] [address] Care Team Providers Care Medical Technical Writer Name Role Phone Tucker Negron Primary Care [...] Insured Coverage Start Date Coverage End Date [facility] and [facility] [address] [place] [address] [phone] [id number] 4 Johann Vasquez Self - patient is [...]
[2025-04-14 12:49] VITALS: BP 112/82; PULSE 90; TEMP 36.7; O2SAT 97; BMI 29.0
--- NOTE | 2025-04-14 12:49 | AM.OFFWIN_ITS ---
Intake Vital Signs 04/14/25 12:49 Height 5 ft 7 in Weight 185 lb BMI 29.0 BP 112/82 Blood Pressure Location Lt brachial Position Sitting Pulse 90 Pulse Source Pulse Oximeter Temp 98.1 F Temp Source Oral Pulse Oximetry (%) 97 Oxygen Delivery Method Room Air Intake Visit Reasons: EP Congestion, head pressure Intake Note: Patient presen with head and chest congestion x 3 day, with right ear pressure Patient Tobacco Use Status: Former Tobacco user Ballast Regulator Operator Required: No Allergies No Known Allergies Allergy (Verified 04/14/25 12:55) Do you need a note to return to daycare/school/sports/work: Yes HPI HPI Comments History of Present Illness Details History - The patient is a 55-year-old male pres enting with sinus pressure, congestion, and ear pain. - Sinus pressure has been present for th ree days, affecting the head and ears. - Has a pressure behind his eyes and has a headache. - Difficulty breathing with CPAP is a ne w symptom, with no prior history of such issues. - The patient denies fever, chills, and facial pain but reports eye pressure. - Nighttime cough and shortness of breat h are noted, with no sore throat or sick contacts. - Medications include ibuprofen and sinu s medication; the patient is a former smoker. - He denies CP, SOB, abd pain, n/v/d, we akness, dizziness, or hearing loss. Physical Exam General: Cooperative, healthy appearing, comfortable and no acute distress Orientation/consciousness: Patient oriented x3 Head: Pressure in head noted Ears: Hearing grossly normal bilaterally, external ears normal, fluid noted in ears, and TM's normal bilaterally. Nose: Normal external nose present, normal nares present, and no nasal discharge present. Face and sinus: Sinuses nontender to palpation. Mouth: Normal oral and palatal mucosa present and moist mucous membranes noted. Throat: Tonsils normal. Uvula is midline. Posterior oropharynx with erythema and no exudates. Neck: Normal visual inspection, full ROM. No lymphadenopathy noted. Respiratory: Clear to auscultation bilaterally. Normal respiratory effort, able to speak in complete sentences. Shortness of breath at nighttime noted. No respiratory distress, not tachypneic, no tripod positioning and no use of accessory muscles. Cardiovascular: Regular rate and rhythm. Normal S1 and S2 Skin: No rashes or lesions noted Patient was informed and verbally consented to the use of an ambient scribe for clinic note documentation during this visit [facility] Medical History Paroxysmal atrial fibrillation Obstructive sleep apnea Lumbar spondylosis Acid reflux Benign prostatic hyperplasia with urinary obstruction Carpal tunnel syndrome on both sides Overweight (BMI 25.0-29.9) Primary insomnia Paresthesia of both hands Vitamin D deficiency Cervical disc disease Renal calculi Asymptomatic microscopic hematuria Pancreatic cyst Impaired fasting glucose Pure hypercholesterolemia Essential hypertension Surgical History H/O colonoscopy History of esophagogastroduodenoscopy (EGD) Tonsillar cyst Status post excision of lipoma History of surgery on right wrist Family History Father Myocardial infarction Diabetes Hypertension Mother Hypertension Brother Hypertension Social History Housing: House Are you a primary emergency care tech to a significant other at home: No Do you presently have visiting nurse or other home services: No Alcohol intake: current Alcohol intake frequency: holidays/special occasions only Patient Tobacco Use Status: Former Tobacco user Tobacco use type: Cigarette Years Smoked: 20 +/- e-Cigarette/Vaping Use: Never Used Second Hand Smoke Exposure: Yes service: No Current occupational status: employed 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 Current occupational exposures/hazards: No Cognitive needs: No Hearing needs: No Vision needs: Yes (Glasses) Review of Systems Const All systems reviewed & are unremarkable except as noted in HPI and below Physical Exam Vital Signs: Last Vital Signs Temp 98.1 F 04/14/25 12:49 Pulse 90 04/14/25 12:49 BP 112/82 04/14/25 12:49 Pulse Ox 97 04/14/25 12:49 Oxygen Delivery Method Room Air 04/14/25 12:49 BMI result Body Mass Index 29.0 Assessment & Plan Assessment & Plan (1) URI with cough and congestion: Code(s): J06.9 - Acute upper respiratory infection, unspecified Plan Most likely URI vs sinusitis vs covid vs flu vs allergic rhinitis Plan - Prescribe cough medicine, nasal spray, decongestant, and antibiotic for symptom management. - Recommend Tylenol or Motrin for pain relief. - Suggest steam showers and rest at home to support recovery. - work note given - follow up with PCP Medications: New benzonatate 100 mg PO bid-tid PRN 21 caps 0RF Cough 7 days fluticasone propionate 50 mcg/actuation administer into each nostril 1 spray intranasal Q12H 16 grams 0RF cetirizine-pseudoephedrine 5-120 mg ER 1 tab PO BID 14 tabs 0RF 7 days amoxicillin-pot clavulanate 875-125 mg 1 tab PO Q12H 14 tabs 0RF Coding Level of Care Code Est Pt Level 3 (27973) Diagnoses URI with cough and congestion J06.9
== END 2025-04-14 13:09 | disposition home or self-care (01) ==
PROVIDERS: PCP Internal Medicine; Visit Provider Physician Assistant Medical
DX: J06.9 Acute upper respiratory infection, unspecified (principal)

== ENCOUNTER 2025-04-23 09:13 | Outpatient (REF) | payer BC, SELFPAY ==
--- NOTE | ~2025-04-23 | US_ITS ---
CLINICAL HISTORY: R10.9 - Unspecified abdominal pain --- Additional Notes or Special Instructions: 6 months follow up for echogenic lesion in the right kidney also US abdomen complete with duplex and color Doppler Comparison: US/SR - US ABDOMEN - 08/24/24 09:20 EST US/SR - US ABDOMEN - 04/25/23 08:04 EDT Findings: The visualized pancreas, aorta, and inferior vena cava are unremarkable. Liver normal size and mildly echogenic throughout. Right lobe 16.6 cm length. Probable focal fatty sparing right lobe measuring 2.6 x 2.2 x 2.0 cm Common duct mm diameter. Physiologic distention of the gallbladder. No gallstones or sludge. No gallbladder wall thickening. No pericholecystic fluid. No sonographic Gibson sign. Main portal vein antegrade. Right kidney normal size, 10.9 cm in length. Normal cortical width and echotexture. No hydronephrosis.Probable angiomyolipoma lower pole measuring 5 mm previously measuring 6 mm. Left kidney normal, 11.6 cm in length. Normal cortical width and echotexture. No solid or cystic renal masses. No nephrolithiasis. No hydronephrosis. Spleen measures 13.2 cm. Indeterminate hypoechoic lesion measuring 3 x 3 x 4 mm previously measuring 8 x 6 x 8 mm No ascites. No lymphadenopathy. Impression: 1. Hepatic steatosis with probable focal fatty sparing contrast-enhanced MRI would be relatively confirmatory. Findings relatively stable. 2. 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 Splenomegaly. Indeterminate splenic lesion has decreased in overall size. This document has been electronically signed by: Adam Denson MD on 04/23/2025 17:14:59
--- OUTSIDE RECORDS SUMMARY | 2025-04-23 09:29 | XMS_ITS | Patient Health Record ---
Author Organization [facility] Address [address] [place] [address] Care Team Providers Care Management Aide Name Role Phone Jeison Lackey Jaycee [phone] Reason For Referral No Information Plan Of Treatment No Information
--- OUTSIDE RECORDS SUMMARY | 2025-04-23 09:29 | XMS_ITS | Patient Health Record ---
Author Organization [facility] Address [address] [place] [address] Care Team Providers Care Projector Operator Name Role Phone Tucker Negron Primary Care [...] Insured Coverage Start Date Coverage End Date [facility] and [facility] [address] [place] [address] [phone] [id number] 4 Johann Vasquez Self - patient is [...]
== END 2025-04-23 09:14 | disposition home or self-care (01) ==
LOC: HO.US 09:13
PROVIDERS: PCP Internal Medicine; Visit Provider Internal Medicine
DX: R10.9 Unspecified abdominal pain (principal); N28.9 Disorder of kidney and ureter, unspecified
CPT/HCPCS: 76700

== ENCOUNTER → 2025-04-23 09:15 | Outpatient (BNV) | payer BC, SELFPAY | PROVIDERS: PCP Internal Medicine; Visit Provider Radiology Diagnostic Radiology | DX: K76.0 Fatty (change of) liver, not elsewhere classified (principal) | CPT/HCPCS: 76700 ==

== ENCOUNTER 2025-05-21 13:15 | Outpatient (AMB) | payer BC, SELFPAY ==
--- OUTSIDE RECORDS SUMMARY | 2025-05-21 13:18 | XMS_ITS | Patient Health Record ---
Author Organization [facility] Address [address] [place] [address] Care Team Providers Care Cube Cutter Name Role Phone Jeison Lackey Jaycee [phone] Reason For Referral No Information Plan Of Treatment No Information
--- OUTSIDE RECORDS SUMMARY | 2025-05-21 13:18 | XMS_ITS | Patient Health Record ---
Author Organization [facility] Address [address] [place] [address] Care Team Providers Care Weapons Officer [employer] Name Role Phone Tucker Negron Primary Care Provider Unavaila ble Allergies No Known Allergies Reason For Referral No Information Medications Medication SIG (Take, Route, Frequency, Duration) Notes Start Date End Date Status Diclofenac Sodium 3 % 1 application to the right foot Externally Twice a day; Duration: 30 days 1 gm as dirrected right foot BID Not-Taking Zolpidem Tartrate 10 MG 1 tablet at bedtime as needed Orally Once a day Active Diclofenac Sodium 50 MG TAKE 1 TABLET BY MOUTH TWICE A DAY 30; Duration: 30 Active Diclofenac Sodium 1 % 1 gm as directed right foot Externally Twice a day; Duration: 30 day(s) Not-Taking Carisoprodol 350 MG 1 [...] Insured Coverage Start Date Coverage End Date [facility] [address] [place] [address] [phone] [id number] 4 Johann Vasquez Self - patient is [...]
--- NOTE | 2025-05-21 13:28 | A.OFFVIS_ITS ---
Intake Visit Reasons: kidney lesion Intake Note: New Patient is present for KIDNEY LESION Urology Rx: TAMSULOSIN Blood Thinners: NONE Imaging completed: US 04/23/25 Cathead Operator Required: No Accompanied by: Self / Same As Patient Allergies No Known Allergies Allergy (Verified 05/21/25 13:31) HPI Comments Details: Small angiomyolipoma right side PFSH Medical History Paroxysmal atrial fibrillation Obstructive sleep apnea Lumbar spondylosis Acid reflux Benign prostatic hyperplasia with urinary obstruction Carpal tunnel syndrome on both sides Overweight (BMI 25.0-29.9) Primary insomnia Paresthesia of both hands Vitamin D deficiency Cervical disc disease Renal calculi Asymptomatic microscopic hematuria Pancreatic cyst Impaired fasting glucose Pure hypercholesterolemia Essential hypertension Surgical History H/O colonoscopy History of esophagogastroduodenoscopy (EGD) Tonsillar cyst Status post excision of lipoma History of surgery on right wrist Family History Father Myocardial infarction Diabetes Hypertension Mother Hypertension Brother Hypertension Social History Housing: House Are you a primary managed care nurse to a significant other at home: No Do you presently have visiting nurse or other home services: No Alcohol intake: current Alcohol intake frequency: holidays/special occasions only Patient Tobacco Use Status: Former Tobacco user Tobacco use type: Cigarette Years Smoked: 20 +/- e-Cigarette/Vaping Use: Never Used Second Hand Smoke Exposure: Yes service: No Current occupational status: employed 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 Current occupational exposures/hazards: No Cognitive needs: No Hearing needs: No Vision needs: Yes (Glasses) Results AMB Urinalysis, Automated UA Leukoctes 0 Luli/uL Last Edit by Marielena Matthew MA on 05/21/25 16:31 UA Nitrite Negative Last Edit by Marielena Matthew MA on 05/21/25 16:31 UA Urobilinogen 0.2 mg/dL Last Edit by Marielena Matthew MA on 05/21/25 16:31 UA Protein 0 mg/dL Last Edit by Marielena Matthew MA on 05/21/25 16:31 UA pH 6.0 Last Edit by Marielena Colon, MA on 05/21/25 16:31 UA Blood 0 Garrick/uL Last Edit by Marielena Colon, MA on 05/21/25 16:31 UA Specific [place] 1.025 Last Edit by Marielena Vipul, MA on 05/21/25 16:31 UA Ketone Negative Last Edit by Marielena Vipul, MA on 05/21/25 16:31 UA Bilirubin 0 mg/dL Last Edit by Marielena Colon, MA on 05/21/25 16:31 UA Glucose 0 mg/dL Last Edit by Marielena Colon, MA on 05/21/25 16:31 Results Reviewed Results Reviewed: Laboratory Last Values Urine pH (Auto) 6.0 05/21/25 15:56 Specific [place] (Auto) 1.025 05/21/25 15:56 Urine Protein (Auto) 0 mg/dL 05/21/25 15:56 Glucose (UA)(Auto) 0 mg/dL 05/21/25 15:56 Urine Ketones (Auto) Negative 05/21/25 15:56 Urine Blood (Auto) 0 Garrick/uL 05/21/25 15:56 Urine Nitrite (Auto) Negative 05/21/25 15:56 Urine Bilirubin (Auto) 0 mg/dL 05/21/25 15:56 Urine Urobilinogen (Auto) 0.2 mg/dL 05/21/25 15:56 Leukocyte Esterase (Auto) 0 Luli/uL 05/21/25 15:56 Assessment & Plan Assessment & Plan (1) Angiomyolipoma of kidney: Code(s): - Benign lipomatous neoplasm of kidney Category: Medical Orders: Orders AMB Urinalysis Automated Today - Benign lipomatous neoplasm of kidney, N20.0 - Calculus of kidney US renal BI 12 Months - Benign lipomatous neoplasm of kidney Coding Diagnoses Angiomyolipoma of kidney
== END 2025-05-21 14:08 | disposition home or self-care (01) ==
LOC: HO.HUSH 13:16
PROVIDERS: PCP Internal Medicine; Visit Provider Urology
DX: N20.0 Calculus of kidney (principal); D17.71 Benign lipomatous neoplasm of kidney

== ENCOUNTER → 2025-05-21 13:15 | Outpatient (BNVA) | payer BC, SELFPAY | PROVIDERS: PCP Internal Medicine; Visit Provider Urology | DX: D17.71 Benign lipomatous neoplasm of kidney (principal) | CPT/HCPCS: 81003 ==

== ENCOUNTER 2025-06-28 07:05 | Outpatient (AMB) | payer BC, SELFPAY ==
--- OUTSIDE RECORDS SUMMARY | 2025-06-28 07:07 | XMS_ITS | Patient Health Record ---
Author Organization [facility] Address [address] [place] [address] Care Team Providers Care Vocational Placement Specialist Name Role Phone Jeison Lackey Jaycee [phone] Reason For Referral No Information Plan Of Treatment No Information
--- OUTSIDE RECORDS SUMMARY | 2025-06-28 07:07 | XMS_ITS | Patient Health Record ---
Author Organization [facility] Address [address] [place] [address] Care Team Providers Care Machine Fitter Name Role Phone Tucker Negron Primary Care [...] Insured Coverage Start Date Coverage End Date [facility] [address] [place] [address] [phone] [id number] 4 Johann Vasquez Self - patient is [...]
[2025-06-28 07:17] VITALS: BP 110/72; PULSE 93; RESP 16; TEMP 36.7; O2SAT 98; BMI 30.1
--- NOTE | 2025-06-28 07:17 | AM.OFFWIN_ITS ---
Intake Vital Signs 06/28/25 07:17 Height 5 ft 7 in Weight 192 lb BMI 30.1 BP 110/72 Blood Pressure Location Lt brachial Position Sitting Respiration 16 Pulse 93 Pulse Source Pulse Oximeter Temp 98.1 F Temp Source Oral Pulse Oximetry (%) 98 Oxygen Delivery Method Room Air Intake Visit Reasons: EP Vertigo since Saturday Patient Tobacco Use Status: Former Tobacco user Allergies No Known Allergies Allergy (Verified 06/28/25 07:20) HPI HPI Comments History of Present Illness Details History of Present Illness - The patient is a 55-year-old male pres enting with vertigo. - The vertigo began on Saturday morning up on waking, with no prior symptoms the night before. - The patient experiences dizziness prim arily when bending over, with a sensation of spinning. - There is a history of similar symptoms occurring a long time ago, which improved with medication and therapy for the ears. - The patient denies any ear problems, c ongestion, chest pain, shortness of breath, or blurry vision. - Nausea is present but no headache is r eported. - No changes in medication or diet have occurred recently. - He has been taking OTC Dramamine with some relief. - He denies bruising, bleeding gums, rec cassandra bleeding, or melena. Physical Exam General: Cooperative, healthy appearing, comfortable, no acute distress and well developed Orientation: Patient oriented x3 Limitations: No limitations Head: Normal to inspection Ears: Hearing grossly normal bilaterally Nose: Normal external nose present Face and sinus: Normal facial exam. No sinus tenderness noted. Eyes: Appearance normal, both eyes and all related structures. PERRLA, EOMI. No nystagmus noted. Neck: Normal visual inspection and Yes full ROM. No carotid bruits noted. Respiratory: Normal respiratory effort and able to speak in complete sentences. Clear to auscultation bilaterally. No w/r/r noted. Cardiovascular: Regular rate and rhythm. Normal S1 and S2. No m/r/g noted. Skin: No rashes or lesions noted Neuro: Patient oriented x3. CN II- XII intact Extremities: Normal to inspection. No edema noted. Patient was informed and verbally consented to the use of an ambient scribe for clinic note documentation during this visit. [facility] Medical History Paroxysmal atrial fibrillation Obstructive sleep apnea Lumbar spondylosis Acid reflux Benign prostatic hyperplasia with urinary obstruction Carpal tunnel syndrome on both sides Overweight (BMI 25.0-29.9) Primary insomnia Paresthesia of both hands Vitamin D deficiency Cervical disc disease Renal calculi Asymptomatic microscopic hematuria Pancreatic cyst Impaired fasting glucose Pure hypercholesterolemia Essential hypertension Surgical History H/O colonoscopy History of esophagogastroduodenoscopy (EGD) Tonsillar cyst Status post excision of lipoma History of surgery on right wrist Family History Father Myocardial infarction Diabetes Hypertension Mother Hypertension Brother Hypertension Social History Housing: House Are you a primary health care recruiter to a significant other at home: No Do you presently have visiting nurse or other home services: No Alcohol intake: current Alcohol intake frequency: holidays/special occasions only Patient Tobacco Use Status: Former Tobacco user Tobacco use type: Cigarette Years Smoked: 20 +/- e-Cigarette/Vaping Use: Never Used Second Hand Smoke Exposure: Yes service: No Current occupational status: employed 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 Current occupational exposures/hazards: No Cognitive needs: No Hearing needs: No Vision needs: Yes (Glasses) Review of Systems Const All systems reviewed & are unremarkable except as noted in HPI and below Physical Exam Vital Signs: Last Vital Signs Temp 98.1 F 06/28/25 07:17 Pulse 93 06/28/25 07:17 Resp 16 06/28/25 07:17 BP 110/72 06/28/25 07:17 Pulse Ox 98 06/28/25 07:17 Oxygen Delivery Method Room Air 06/28/25 07:17 BMI result Body Mass Index 30.1 Assessment & Plan Assessment & Plan (1) Dizziness: Code(s): R42 - Dizziness and giddiness Plan Most likely Vertigo or BPPV plan - Initiate treatment with meclizine as discussed. - If symptoms persist, follow up with primary care for potential ENT referral and further evaluation. Medications: New meclizine 25 mg PO DAILY PRN 20 tabs 0RF motion sickness Coding Level of Care Code Est Pt Level 3 (69309) Diagnoses Dizziness R42
== END 2025-06-28 08:10 | disposition home or self-care (01) ==
PROVIDERS: PCP Internal Medicine; Visit Provider Physician Assistant Medical
DX: R42 Dizziness and giddiness (principal)

== ENCOUNTER 2025-07-01 12:39 | Outpatient (AMB) | payer BC, SELFPAY ==
[2025-07-01 12:54] VITALS: BP 128/76; PULSE 105; O2SAT 96
--- NOTE | 2025-07-01 12:54 | MHC.PC.OV ---
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 Accompanied by: Self / Same As Patient Allergies No Known Allergies Allergy (Verified 07/01/25 12:57) Medication List - Last Reconciled 07/01/25 by Joslyn Mcdaniel MD cyclobenzaprine 5 mg PO TID PRN diltiazem HCl ER 120 mg PO DAILY fluticasone propionate 50 mcg/actuation 1 spray intranasal Q12H gabapentin 200 mg PO BEDTIME PRN lidocaine 5% leave on most painful area for up to 12 hrs topically PRN; lisinopril 2.5 mg PO DAILY 90 days meclizine 25 mg PO DAILY PRN meloxicam 15 mg PO DAILY PRN metoprolol succinate ER 25 mg PO DAILY pantoprazole 40 mg PO ONCE PRN simvastatin 40 mg PO BEDTIME tamsulosin 0.4 mg PO BEDTIME zolpidem 10 mg PO BEDTIME PRN 30 days Tobacco use date assessed: 03/10/25 Dental Screening Dental Screen Date: 07/01/25 Did you have a dental visit in the last 12 months?: Yes Did you have a dental problem in the last 6 months where you did not have access to dental care?: No Was dental information given to patient?: Patient has dentist HPI HPI Comments History of Present Illness Details The patient is a 55-year-old male presenting with dizziness and weakness. The dizziness began suddenly last Saturday, with symptoms exacerbated by movements such as bending over or looking up, and is accompanied by a constant sensation of spinning. The patient reports a feeling of running a marathon when walking and experiences frequent dropping of objects from his hands. His dizziness is cntinuous. He has risk factors for vascular disease such as HLD, HTN, and smoking. The patient denies any preceding illness such as flu and reports no significant changes in his health prior to the onset of symptoms. He has a history of vaping, having quit smoking two years ago, and denies current tobacco use. [facility] Medical History Paroxysmal atrial fibrillation Obstructive sleep apnea Lumbar spondylosis Acid reflux Benign prostatic hyperplasia with urinary obstruction Carpal tunnel syndrome on both sides Overweight (BMI 25.0-29.9) Primary insomnia Paresthesia of both hands Vitamin D deficiency Cervical disc disease Renal calculi Asymptomatic microscopic hematuria Pancreatic cyst Impaired fasting glucose Pure hypercholesterolemia Essential hypertension Surgical History H/O colonoscopy History of esophagogastroduodenoscopy (EGD) Tonsillar cyst Status post excision of lipoma History of surgery on right wrist Family History Father Myocardial infarction Diabetes Hypertension Mother Hypertension Brother Hypertension Social History Housing: House Are you a primary post anesthesia care unit nurse to a significant other at home: No Do you presently have visiting nurse or other home services: No Alcohol intake: current Alcohol intake frequency: holidays/special occasions only Patient Tobacco Use Status: Former Tobacco user Tobacco use type: Cigarette Years Smoked: 20 +/- e-Cigarette/Vaping Use: Never Used Second Hand Smoke Exposure: Yes service: No Current occupational status: employed 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 Current occupational exposures/hazards: No Cognitive needs: No Hearing needs: No Vision needs: Yes (Glasses) Questionnaire Thrive Questionnaire Date Thrive assessed: 02/14/25 I am a: Patient What is your living situation today?: I have a steady place to live Within the past 12 months, did the food you bought not last and you didn't have the money to get more?: Never true Within the past 12 months, did you worry whether your food would run out before you got money to buy more?: Never true Do you have trouble paying for medicines?: No Do you have trouble getting transportation to medical appointments?: No Do you have trouble paying your heating and electricity bill?: No Do you have trouble taking care of your child, family member or friend?: No Do you have trouble with day-to-day activities such as bathing, preparing meals, shopping, managing finances, etc.?: No Are you currently unemployed and looking for a job?: No Are you interested in more education?: No Please select the resources that you would like help with: None Currently or been in a relationship where the following occur: No concerns reported THRIVE Score: 0 TRUNG-7 AMB Questionnaire TRUNG-7 Date TRUNG - 7 assessed: 03/10/25 Source: Developed by Drs. Jeison Plummer, Greer Carl, Zana Saini and colleagues, with an educational saloni from [employer]. Review of Systems Const Details: Positives besides what was mentioned in HPI are in BOLD Constitutional: No Weight Change, No Fever, No Chills, No Night Sweats, No Fatigue, No Malaise ENT/Mouth: No Hearing Changes, No Ear Pain, No Nasal Congestion, No Sinus Pain, No Hoarseness, No sore throat, No Rhinorrhea, No Swallowing Difficulty Eyes: No Eye Pain, No Swelling, No Redness, No Foreign Body, No Discharge, No Vision Changes Cardiovascular: No Chest Pain, No SOB, No PND, No Dyspnea on Exertion, No Orthopnea, No Claudication, No Edema, No Palpitations Respiratory: No Cough, No Sputum, No Wheezing, No Smoke Exposure, No Dyspnea Gastrointestinal: No Nausea, No Vomiting, No Diarrhea, No Constipation, No Pain, No Heartburn, No Anorexia, No Dysphagia, No Hematochezia, No Melena, No Flatulence, No Jaundice Genitourinary: No Dysmenorrhea, No DUB, No Dyspareunia, No Dysuria, No Urinary Frequency, No Hematuria, No Urinary Incontinence, No Urgency, No Flank Pain, No Urinary Flow Changes, No Hesitancy Musculoskeletal: No Arthralgias, No Myalgias, No Joint Swelling, No Joint Stiffness, No Back Pain, No Neck Pain, No Injury History Skin: No Skin Lesions, No Pruritis, No Hair Changes, No Breast/Skin Changes, No Nipple Discharge Neuro: No Weakness, No Numbness, No Paresthesias, No Loss of Consciousness, No Syncope, No Dizziness, No Headache, No Coordination Changes, No Recent Falls Psych: No Anxiety/Panic, No Depression, No Insomnia, No Personality Changes, No Delusions, No Rumination, No SI/HI/AH/VH, No Social Issues, No Memory Changes, No Violence/Abuse Hx., No Eating Concerns Heme/Lymph: No Bruising, No Bleeding, No Transfusions History, No Lymphadenopathy Endocrine: No Polyuria, No Polydipsia, No Temperature Intolerance Physical exam (Primary Care) Vital Signs: Last Vital Signs Pulse 105 H 07/01/25 12:54 BP 128/76 07/01/25 12:54 Pulse Ox 96 07/01/25 12:54 Oxygen Delivery Method Room Air 07/01/25 12:54 BMI result Body Mass Index 30.0 Tobacco/Smoking Status: Tobacco use Status Tobacco use date assessed 03/10/25 07/01/25 12:59 Patient Tobacco Use Status Former Tobacco user 07/01/25 12:59 Tobacco use type Cigarette 07/01/25 12:59 e-Cigarette/Vaping Use Never Used 07/01/25 12:59 Thrive Assessment: Date of Thrive Assessment Date Thrive assessed 02/14/25 07/01/25 12:59 Currently or been in a relationship where the following occur: No concerns reported Const Other: Pertinent findings are in BOLD GENERAL APPEARANCE NAD, activity normal for age, well developed/ well nourished, no cyanosis, pallor, or diaphoresis. EYES lids/conjunctiva normal. EARS/NOSE/THROAT Mucous membranes moist, nares normal, lips/teeth normal uvula midline without oral pharyngeal erythema, exudate or swelling TMs normal bilaterally. No lymphangitis/lymphedema. HEAD/NECK normocephalic atraumatic, no facial trauma, neck is supple. RESPIRATORY respiratory effort normal, speaks in full sentences, no tripod position, no accessory muscle use. Lungs clear to auscultation without rhonchi, wheezes, rales CARDIAC Regular rate and rhythm, no edema. ABDOMINAL Soft, ND/NT. No evidence of fluid wave. No pulsatile masses on exam, rebound tenderness, Gibson sign or pain over Mcburney's point. MUSCLES/EXTREMITIES No abnormal range of motion, no swelling. SKIN Warm, pink and dry. No rashes, dermatoses, petechiae or lesions. NEUROLOGICAL Speech is clear and appropriate. Normal level of consciousness. Gait and coordination are normal. 5/5 strength in all extremities. PSYCH Normal mood and affect. Judgement/competence is appropriate Renato maneuver positive. Neuro exam normal. Coding Level of Care Code Est Pt Level 4 (39711) Diagnoses Dizziness R42 Benign paroxysmal positional vertigo, bilateral H81.13 Time Spent (min) 30 Comment History taking, extensive physical exam. Assessment & Plan Assessment & Plan (1) Dizziness: Code(s): R42 - Dizziness and giddiness Category: Medical Plan: Most likely BPPV as Renato maneuver is positive. Patient reports sudden acute onset of symptoms and continuous dizziness all the time. So stroke is suspected. Patient sent to the ED to rule out stroke. In case it is BPPV the patient was referred to ENT, PT for vestibular therapy and his meclizine dose was increased to 50 mg Daily. (2) Benign paroxysmal positional vertigo, bilateral: Code(s): H81.13 - Benign paroxysmal vertigo, bilateral Category: Medical Plan: Once Stroke is ruled out in the ED the patient will see ENT and PT for vestibular therapy. Meclizine dose was increased either ways. Plan I discussed with the patient the likelihood of Benign Paroxysmal Positional Vertigo (BPPV) and the need for physical therapy as a treatment option. Given the constant dizziness, I recommended visiting the emergency department to rule out a stroke, emphasizing the importance of imaging for accurate diagnosis. Orders: Orders PT Evaluation and Treatment Today H81.13 - Benign paroxysmal vertigo, bilateral Referrals Ear/Nose/Throat Referral H81.13 - Benign paroxysmal vertigo, bilateral Medications: Changed From meclizine 25 mg PO DAILY PRN 20 tabs 0RF motion sickness To meclizine 50 mg (2 x 25 mg) PO DAILY PRN 20 tabs 0RF motion sickness
== END 2025-07-01 13:45 | disposition home or self-care (01) ==
LOC: HO.HMCH 12:40
PROVIDERS: PCP Internal Medicine; Visit Provider Internal Medicine
DX: H81.13 Benign paroxysmal vertigo, bilateral (principal); R42 Dizziness and giddiness

== ENCOUNTER 2025-07-01 14:12 | Emergency (ER) | payer BC, SELFPAY ==
[2025-07-01] VITALS (7 sets, daily range): BP systolic 105–124; BP diastolic 70–77; PULSE 82–104; RESP 16–17; TEMP 36.6–37.1; O2SAT 96–98; BMI 30.9
--- NOTE | ~2025-07-01 | CT_ITS ---
CLINICAL HISTORY: dizziness CT Head without contrast. CT angiography head and neck with contrast. 3D Postprocessing. Comparison: None provided Findings: HEAD CT: No intra-axial mass, midline shift, hydrocephalus, or acute hemorrhage. No significant atrophy-like change or white matter disease. There is no sinus or mastoid fluid. The orbits are within normal limits. No skull fracture. HEAD AND NECK CTA: Aortic arch and cervical great vessels are patent. Minimal calcified plaque at right carotid bifurcation and mild calcified plaque at left carotid bifurcation with no evidence of stenosis. Intracranial arteries are patent. No aneurysm or occlusion. No abnormal intracranial enhancement. The visualized thyroid gland is unremarkable. No cervical mass or fluid collection. Lung apices clear. No acute fracture. Degenerative changes thoracic spine. IMPRESSION: 1. No acute intracranial findings on noncontrast CT head. 2. Patent head and neck CTA. This document has been electronically signed by: María Pascual MD on 07/01/2025 19:49:00
--- NOTE | 2025-07-01 14:15 | ED.DIZZY ---
HPI - Dizziness General Chief Complaint: Dizziness Stated Complaint: dizzy quest stroke sent by provider Time Seen by Provider: 07/01/25 16:07 Source: patient Limitations: no limitations History of Present Illness ED Provider: Alexa Taylor PA-C HPI Narrative: 55-year-old male with a history of hypertension, hyperlipidemia, paroxysmal AFib not anticoagulated, known vertigo, chronic back pain, who presents with dizziness x2 weeks. Patient states he has been having intermittent symptoms. Dizziness worse with position change; lying down to sitting up sitting up to standing, movement of his head side to side. Associated nausea at times. Patient states he feels ?off balance?, while walking. Denies headache. Denies nasal or sinus congestion, ear pressure. No recent cough cold symptoms or fever. Related Data Home Medications ?Medication ?Instructions ?Recorded ?Confirmed diltiazem HCl 120 mg 120 mg PO DAILY 02/16/25 07/01/25 tablet,extended release 24 hr gabapentin 100 mg capsule 200 mg PO BEDTIME PRN 02/16/25 07/01/25 lidocaine 5 % topical patch See Rx Instructions topical 02/16/25 07/01/25 .COMPLEX PRN pain meloxicam 15 mg tablet 15 mg PO DAILY PRN pain 02/16/25 07/01/25 pantoprazole 20 mg tablet,delayed 40 mg PO ONCE PRN 02/16/25 07/01/25 release metoprolol succinate 25 mg 25 mg PO DAILY 07/01/25 07/01/25 tablet,extended release 24 hr Previous Rx's ?Medication ?Instructions ?Recorded zolpidem 10 mg tablet 10 mg PO BEDTIME PRN Insomnia 30 11/10/24 days #30 tabs cyclobenzaprine 5 mg tablet 5 mg PO TID PRN muscle spasm #30 11/26/24 tabs tamsulosin 0.4 mg capsule 0.4 mg PO BEDTIME #90 caps 02/25/25 fluticasone propionate 50 1 spray intranasal Q12H #16 grams 04/14/25 mcg/actuation nasal spray,suspension lisinopril 2.5 mg tablet 2.5 mg PO DAILY 90 days #90 tabs 05/19/25 simvastatin 40 mg tablet 40 mg PO BEDTIME #90 tabs 05/20/25 meclizine 25 mg tablet 50 mg (2 x 25 mg) PO DAILY PRN 07/01/25 motion sickness #20 tabs Allergies Allergy/AdvReac Type Severity Reaction Status Date / Time No Known Allergies Allergy Verified 07/01/25 14:19 Review of Systems Review of Systems: Yes all other systems are reviewed and are negative Constitutional: Constitutional: Denies fatigue, Denies fever(s) and Denies headache(s) Eyes: Eyes: Denies loss of vision ENT: Reports vertigo, Reports dizziness, Denies headache(s) and Denies neck pain Cardiovascular: Cardiovascular: Denies chest pain and Denies dyspnea Respiratory: Respiratory: Denies dyspnea Gastrointestinal: Gastrointestinal: Denies abdominal pain, Reports nausea and Denies vomiting Musculoskeletal: Musculoskeletal: Reports abnormal gait, Denies back pain, Denies neck pain, Denies numbness and Denies tingling Neurologic: Denies Neuro-related abnormal movements, Denies Abnormal speech present, Reports abnormal gait, Reports vertigo, Reports dizziness, Denies headache(s), Denies lack of coordination, Denies focal weakness, Denies loss of vision, Denies numbness and Denies tingling Endocrine: Endocrine: Denies fatigue PMFSH Past Medical History Attestation statement: The following information was validated with the patient. Medical History Paroxysmal atrial fibrillation Obstructive sleep apnea Lumbar spondylosis Acid reflux Benign prostatic hyperplasia with urinary obstruction Carpal tunnel syndrome on both sides Overweight (BMI 25.0-29.9) Primary insomnia Paresthesia of both hands Vitamin D deficiency Cervical disc disease Renal calculi Asymptomatic microscopic hematuria Pancreatic cyst Impaired fasting glucose Pure hypercholesterolemia Essential hypertension Surgical History H/O colonoscopy History of esophagogastroduodenoscopy (EGD) Tonsillar cyst Status post excision of lipoma History of surgery on right wrist Family History Family History Father Myocardial infarction Diabetes Hypertension Mother Hypertension Brother Hypertension Social History Social History Housing: House Are you a primary prompt care rn to a significant other at home: No Do you presently have visiting nurse or other home services: No Alcohol intake: current Alcohol intake frequency: holidays/special occasions only Patient Tobacco Use Status: Former Tobacco user Tobacco use type: Cigarette Years Smoked: 20 +/- Smoked in Last 30 Days: Yes e-Cigarette/Vaping Use: Never Used Second Hand Smoke Exposure: Yes Use of substances other than those prescribed or required for medical reasons: No Advance Directives: No Advance Directives Information Provided: Yes service: No Current occupational status: employed 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 Current occupational exposures/hazards: No Cognitive needs: No Hearing needs: No Vision needs: Yes (Glasses) Physical Exam Vital Signs: Vital Signs: Last Vital Signs Temp 98.1 F 07/01/25 15:47 Pulse 104 H 07/01/25 18:36 Resp 17 07/01/25 18:36 BP 105/77 07/01/25 18:36 Pulse Ox 98 07/01/25 18:36 O2 Del Method Room Air 07/01/25 18:36 BMI result Body Mass Index 30.9 Neuro: Speech: No Abnormal speech present NIH Stroke Scale Level of Consciousness: Alert Level of Consciousness Questions: Answers both questions correctly Level of Consciousness Commands: Performs both tasks correctly Best Gaze: Normal Visual: No visual loss Facial Palsy: Normal Motor Arm (Right): No drift Motor Arm (Left): No drift Motor Leg (Right): No drift Motor Leg (Left): No drift Limb Ataxia: Absent Sensory: Normal Best Language: No aphasia Dysarthia: Normal Extinction and Inattention: No abnormality Score: 0 Course Course Course Narrative: This is an RME: Additional HPI, ROS, PE not included below will be deferred to primary provider. RME assessment and note performed by: Akosua Foley PA-C This is a [id number], with a hx of paroxysmal atrial fibrillation on ASA no AC, HTN, HLD, who presents to the ER with complaints of continuous dizziness x 2 weeks. Patient reports that he has a history of vertigo, states that this feels worse than his vertigo he has had in the past. He states that on Saturday he was prescribed meclizine, which helps with his symptoms however he states that his symptoms have not resolved. He went to his primary care this morning and was told to report to the emergency room to rule out a stroke. He has an NIH score of 0. Neurologically intact, no focal deficits on examination. Plan: CT, CTA, labs, EKG, further ER evaluation needed. Medications Administered Discontinued Medications Generic Name Dose Route Start Last Admin Trade Name Glenny PRN Reason Stop Dose Admin Iohexol 70 ml 07/01/25 17:06 07/01/25 17:06 Iohexol 350 Mg/Ml 100 Ml Infus..Btl IV 07/01/25 17:07 70 ml ONCE ONE Administration Medical Decision Making Medical Decision Making MDM Narrative: 55-year-old male with a history of hypertension, hyperlipidemia, paroxysmal AFib not anticoagulated, known vertigo, chronic back pain, who presents with dizziness x2 weeks. Patient states he has been having intermittent symptoms. Dizziness worse with position change; lying down to sitting up sitting up to standing, movement of his head side to side. Associated nausea at times. Patient states he feels ?off balance?, while walking. Denies headache. Denies nasal or sinus congestion, ear pressure. No recent cough cold symptoms or fever. Problem: Hypertension, hyperlipidemia, paroxysmal AFib, known vertigo History: Per patient I have considered the following differential diagnoses: Vertigo, labyrinthitis, serous otitis, posterior circulation CVA, orthostatic hypotension, dehydration, anemia, orthostatic hypotension, new arrhythmia Plan: Patient's symptoms seem vertiginous in nature for me, however no nystagmus noted on exam, he does have risk factors for vascular disease, he will be assessed for potential posterior circulation CVA. There was no underlying viral syndrome or serous otitis to suggest inner ear congestion as cause for his dizziness. His screening labs were obtained, there was no underlying organic cause a could account for his dizziness; dehydration, anemia. No new arrhythmia noted on his EKG. Orthostatics are within normal limits. I have independently reviewed the following tests: Labs: No leukocytosis, not anemic, no electrolyte abnormality, troponin less than 2.7 EKG: Normal sinus rhythm, rate of 97, no ischemic changes no ectopy when compared to prior study, QTC 441 CT brain: CTA head and neck:CLINICAL HISTORY: dizziness CT Head without contrast. CT angiography head and neck with contrast. 3D Postprocessing. Comparison: None provided Findings: HEAD CT: No intra-axial mass, midline shift, hydrocephalus, or acute hemorrhage. No significant atrophy-like change or white matter disease. There is no sinus or mastoid fluid. The orbits are within normal limits. No skull fracture. HEAD AND NECK CTA: Aortic arch and cervical great vessels are patent. Minimal calcified plaque at right carotid bifurcation and mild calcified plaque at left carotid bifurcation with no evidence of stenosis. Intracranial arteries are patent. No aneurysm or occlusion. No abnormal intracranial enhancement. The visualized thyroid gland is unremarkable. No cervical mass or fluid collection. Lung apices clear. No acute fracture. Degenerative changes thoracic spine. IMPRESSION: 1. No acute intracranial findings on noncontrast CT head. 2. Patent head and neck CTA. This document has been electronically signed by: María Pascual MD on 07/01/2025 19:49:00 Differential Diagnosis Differential Diagnoses: The differential diagnosis associated with the presentation includes See medical decision-making Admission/Observation Consideration of admission/observation: Escalation of care including admission/observation considered Was considered, did not require Lab Data MDM Lab Attestation statement: I reviewed the patient's lab results. 07/01/25 14:33 07/01/25 14:33 Labs: Lab Results 07/01/25 Range/Units 14:33 WBC 7.4 (4.8-10.8) X10*3/uL RBC 4.95 (4.60-5.80) X10*6/uL Hgb 15.7 (14.0-18.0) g/dl Hct 44.9 (42.0-52.0) % MCV 90.7 (80.0-98.0) fL MCH 31.7 (27.0-33.0) pg MCHC 35.0 (31.0-36.0) g/dl RDW 11.9 (11.0-16.0) % Plt Count 221 (160-400) X10*3/uL MPV 9.2 L (9.4-12.4) fL Immature Gran % (Auto) 0.1 (0.0-0.4) % Neut % (Auto) 59.5 (45-73) % Lymph % (Auto) 28.5 (20-40) % [place] % (Auto) 9.6 (2-11) % Eos % (Auto) 1.6 (0-4) % Baso % (Auto) 0.7 (0-2) % Lymph # (Auto) 2.1 (1.2-4.9) X10*3/uL [place] # (Auto) 0.7 (0.1-1.2) X10*3/uL Eos # (Auto) 0.1 (0.0-0.4) X10*3/uL Baso # (Auto) 0.1 (0.0-0.2) X10*3/uL Abs Immat Gran (auto) 0.01 (0.00-0.03) X10*3/uL Absolute Neuts (auto) 4.4 (2.0-8.3) x10*3/uL Absolute Nucleated RBC 0.000 (0.0-0.012) X10*3/uL Nucleated RBC % (auto) 0.0 (0.0-0.2) /100WBC PT 10.3 L (10.9-12.4) SEC INR 0.9 (0.9-1.1) APTT 27.6 (26.7-34.1) SEC Sodium 140 (135-145) mmol/L Potassium 3.9 (3.3-5.1) mmol/L Chloride 109 H (96-108) mmol/L Carbon Dioxide 24 (22-29) mmol/L Anion Gap 11 L (12-20) BUN 17 H (9-16) mg/dL Creatinine 0.67 (0.5-1.4) mg/dL Estim Creat Clear Calc 127.1 Estimated GFR > 60 Random Glucose 141 H (60-115) mg/dL Calcium 8.9 (8.4-10.2) mg/dL Magnesium 2.2 (1.6-2.6) mg/dL Total Bilirubin 0.6 (0.0-1.0) mg/dL Direct Bilirubin 0.2 (0.0-0.5) mg/dL AST 24 (5-37) U/L ALT 31 (0-40) U/L Alkaline Phosphatase 103 (39-117) U/L Troponin I High Sens < 2.7 (<3.5-35.0) ng/L Total Protein 6.6 (6.5-8.0) g/dL Albumin 4.4 (3.5-5.0) g/dL Independent Interpretation I performed an independent interpretation of an: EKG Radiology Impression Discussion of test interpretation with radiology: I have reviewed the radiologist's reading. Discharge Plan Discharge Clinical Impression: Vertigo Patient Disposition: Home, Self-Care Instructions: Vertigo (ED) Additional Instructions: All of your screening labs were normal, you were worked up for potential stroke, all the imaging was normal. Your dizziness is secondary to your vertigo. See home care instructions. Use your home meclizine as needed. Follow up with your primary care provider within a week. Prescriptions: No Action tamsulosin 0.4 mg capsule 0.4 mg PO BEDTIME Qty: 90 1RF lisinopril 2.5 mg tablet 2.5 mg PO DAILY 90 Days Qty: 90 1RF simvastatin 40 mg tablet 40 mg PO BEDTIME Qty: 90 2RF diltiazem HCl 120 mg tablet extended release 24 hr 120 mg PO DAILY gabapentin 100 mg capsule 200 mg PO BEDTIME PRN lidocaine 5 % adhesive patch,medicated See Rx Instructions topical .COMPLEX PRN (Reason: pain) Rx Instructions: leave on most painful area for up to 12 hrs topically PRN; meloxicam 15 mg tablet 15 mg PO DAILY PRN (Reason: pain) Rx Instructions: take at night with food pantoprazole 20 mg tablet,delayed release (DR/EC) 40 mg PO ONCE PRN fluticasone propionate 50 mcg/actuation spray,suspension 1 spray intranasal Q12H Qty: 16 0RF Rx Instructions: administer into each nostril zolpidem 10 mg tablet 10 mg PO BEDTIME PRN (Reason: Insomnia) 30 Days Qty: 30 2RF cyclobenzaprine 5 mg tablet 5 mg PO TID PRN (Reason: muscle spasm) Qty: 30 0RF metoprolol succinate 25 mg tablet extended release 24 hr 25 mg PO DAILY meclizine 25 mg tablet 50 mg PO DAILY PRN (Reason: motion sickness) Qty: 20 0RF Print Language: Qatari
--- NOTE | 2025-07-01 14:19 | ECG_ITS ---
Test Reason : DIZZINESS Blood Pressure : */* mmHG Vent. Rate : 97 BPM Atrial Rate : 97 BPM P-R Int : 142 ms QRS Dur : 108 ms QT Int : 348 ms P-R-T Axes : 35 9 21 degrees QTcB Int : 441 ms Normal sinus rhythm Inferior infarct (cited on or before 07-Oct-2011) Abnormal ECG When compared with ECG of 10-Nov-2021 22:36, No significant change was found Referred By: Akosua Foley Electronically Signed By: LIZA FRIAS
[2025-07-01 14:38] LABS: MANUAL DIFF FLAG NO
[2025-07-01 14:41] LABS: Hematocrit 44.9 % (42.0-52.0); Hemoglobin 15.7 g/dl (14.0-18.0); Imm Gran Abs Auto 0.01 X10*3/uL (0.00-0.03); Imm Gran Pct Auto 0.1 % (0.0-0.4); Lymphocytes Absolute Auto 2.1 X10*3/uL (1.2-4.9); Mean Corpuscular HGB Conc 35.0 g/dl (31.0-36.0); Mean Corpuscular Hemoglobin 31.7 pg (27.0-33.0); Mean Corpuscular Volume 90.7 fL (80.0-98.0); NRBC Abs Auto 0.000 X10*3/uL (0.0-0.012); NRBC Pct Auto 0.0 /100WBC (0.0-0.2); Platelet Count 221 X10*3/uL (160-400); Red Blood Count 4.95 X10*6/uL (4.60-5.80); White Blood Count 7.4 X10*3/uL (4.8-10.8)
[2025-07-01 14:45] LABS: INTERNATIONAL NORM RATIO 0.9 (0.9-1.1); Prothrombin Time 10.3 SEC (10.9-12.4)
[2025-07-01 14:48] LABS: Partial Thromboplastin Time 27.6 SEC (26.7-34.1)
[2025-07-01 14:56] LABS: Alanine Aminotransferase 31 U/L (0-40); Albumin Level 4.4 g/dL (3.5-5.0); Alkaline Phosphatase 103 U/L (39-117); Anion Gap 11 (12-20); Aspartate Amino Transferase 24 U/L (5-37); Blood Urea Nitrogen 17 mg/dL (9-16); Calcium 8.9 mg/dL (8.4-10.2); Carbon Dioxide 24 mmol/L (22-29); Chloride 109 mmol/L (96-108); Creatinine Clr Calc Pharmacy 127.1; Estimated Glomerular Filt Rate > 60; Magnesium 2.2 mg/dL (1.6-2.6); Potassium 3.9 mmol/L (3.3-5.1); Sodium 140 mmol/L (135-145); Total Protein 6.6 g/dL (6.5-8.0)
[2025-07-01 15:00] LABS: Troponin-I High Sensitivity < 2.7 ng/L (<3.5-35.0)
--- NOTE | 2025-07-01 15:49 | PC.NURSE ---
Patient presents to Ed c/o dizziness since last Saturday. Dizziness comes on sense of movement, patient visited PCP and was reffered to [facility] to rule out a stroke. Denies pain, fever, chills, n/v. EKG = NSR Patient awaiting CT scans. Plan of care on going
[2025-07-01] MEDS: iohexoL 350 MG/ML 100 ML INFUS..BTL 70 ML IV (17:06)
== END 2025-07-01 20:34 | disposition home or self-care (01) ==
PROVIDERS: Physician Assistant Medical; Emergency Provider Emergency Medicine; PCP Internal Medicine
DX: R42 Dizziness and giddiness (principal); I48.91 Unspecified atrial fibrillation; R94.31 Abnormal electrocardiogram [ECG] [EKG]; Z79.01 Long term (current) use of anticoagulants; Z79.899 Other long term (current) drug therapy
CPT/HCPCS: 36415; 70496; 70498; 80048; 80076; 83735; 84484; 85025; 85610; 85730; 93005; 99285; Q9967

== ENCOUNTER → 2025-07-01 14:19 | Outpatient (BNV) | payer BC, SELFPAY | PROVIDERS: Emergency Provider Emergency Medicine; PCP Internal Medicine; Visit Provider Internal Medicine | DX: I25.2 Old myocardial infarction (principal) | CPT/HCPCS: 93010 ==

== ENCOUNTER → 2025-07-01 14:19 | Outpatient (BNV) | payer BC, SELFPAY | PROVIDERS: Emergency Provider Emergency Medicine; PCP Internal Medicine; Visit Provider Specialist | DX: R42 Dizziness and giddiness (principal) | CPT/HCPCS: 70496; 70498 ==

== ENCOUNTER 2025-07-05 08:42 | Outpatient (AMB) | payer BC, SELFPAY ==
[2025-07-05 08:50] VITALS: BP 104/72; PULSE 99; BMI 30.8
--- NOTE | 2025-07-05 08:50 | A.OFFVIS_ITS ---
Vital Signs 07/05/25 08:50 Height 5 ft 6 in Weight 190 lb 14.725 oz BMI 30.8 BP 104/72 Blood Pressure Location Rt brachial Position Sitting Pulse 99 Pulse Source Pulse Oximeter Intake Visit Reasons: f/u Resistance [place] Required: No Allergies No Known Allergies Allergy (Verified 07/05/25 08:52) Medication List - Last Reconciled 07/05/[address] [facility]-C diltiazem HCl ER 120 mg PO DAILY gabapentin 200 mg PO BEDTIME PRN lisinopril 2.5 mg PO DAILY 90 days meclizine 50 mg (2 x 25 mg) PO DAILY PRN meloxicam 15 mg PO DAILY PRN metoprolol succinate ER 25 mg PO DAILY pantoprazole 40 mg PO ONCE PRN simvastatin 40 mg PO BEDTIME tamsulosin 0.4 mg PO BEDTIME zolpidem 10 mg PO BEDTIME PRN 30 days HPI HPI f/u: Details: Johann is a 55-year-old male with past medical history of hypertension, hyperlipidemia, impaired fasting glucose, family history of premature CAD, minimal nonobstructive coronary artery disease, paroxysmal atrial fibrillation, not on anticoagulation who presents for follow-up. Today he reports that for the last 2 weeks he has noticed increased fatigue and some shortness of breath with activity. He states this is new for him. He is not noticing any heart palpitations. He has not been wearing his smart watch d aily but when he does it has not told him he is in AFib. No chest discomfort at rest or with activity, shortness of breath at rest, PND, orthopnea or edema. No lightheadedness, presyncope, syncope. He has a known history of sleep apnea and reports full compliance with his CPAP. He drinks 1 caffeinated beverage per day. 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 He has been skipping his meto prolol at times as he says this makes him feel lightheaded. [facility] Medical History Paroxysmal atrial fibrillation Obstructive sleep apnea Lumbar spondylosis Acid reflux Benign prostatic hyperplasia with urinary obstruction Carpal tunnel syndrome on both sides Overweight (BMI 25.0-29.9) Primary insomnia Paresthesia of both hands Vitamin D deficiency Cervical disc disease Renal calculi Asymptomatic microscopic hematuria Pancreatic cyst Impaired fasting glucose Pure hypercholesterolemia Essential hypertension Surgical History H/O colonoscopy History of esophagogastroduodenoscopy (EGD) Tonsillar cyst Status post excision of lipoma History of surgery on right wrist Family History Father Myocardial infarction Diabetes Hypertension Mother Hypertension Brother Hypertension Social History Housing: House Are you a primary respiratory care technician to a significant other at home: No Do you presently have visiting nurse or other home services: No Alcohol intake: current Alcohol intake frequency: holidays/special occasions only Patient Tobacco Use Status: Former Tobacco user Tobacco use type: Cigarette Years Smoked: 20 +/- e-Cigarette/Vaping Use: Never Used Second Hand Smoke Exposure: Yes service: No Current occupational status: employed 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 Current occupational exposures/hazards: No Cognitive needs: No Hearing needs: No Vision needs: Yes (Glasses) Review of Systems Const All systems reviewed & are unremarkable except as noted in HPI and below Reports fatigue and Reports lethargy ENT Denies dizziness Card Denies chest pain, Denies chest pain at rest, Denies chest pain with activity, D enies rapid heart rate, Denies pedal edema, Denies edema, Denies leg edema, Denies lightheadedness, Denies palpitations, Denies dyspnea, Reports dyspnea on exertion and Denies orthopnea Resp Denies cough, Denies dyspnea and Reports dyspnea on exertion GI Denies hematochezia and Denies change in stool character Musc Denies abnormal gait, Denies limited range of motion, Denies muscle cramps, Denies muscle weakness, Denies numbness, Denies radiating pain into limb, Denies stiffness and Denies tingling Neuro Denies abnormal gait, Denies dizziness, Denies numbness and Denies tingling Endo Reports fatigue and Denies palpitations Physical Exam Vital Signs: Last Vital Signs Pulse 99 07/05/25 08:50 BP 104/72 07/05/25 08:50 BMI result Body Mass Index 30.8 Const General: cooperative, healthy appearing, comfortable and no acute distress Orientation/consciousness: patient oriented x3 Neck Neck: Yes normal visual inspection and Yes no JVD Resp Effort & Inspection: normal respiratory effort Auscultation: clear to auscultation bilaterally, no crackles, no rales, no rhonchi and no wheezes Cardio Jugular venous distension: no JVD Rate: regular rate Rhythm: regular rhythm Heart sounds: S1 normal heart sound present, S2 normal heart sound present, no gallops, no murmurs and no rubs GI Inspection: Yes normal to inspection Skin General skin exam: no rashes or lesions noted Neuro General: patient oriented x3 Extrem General: Yes normal to inspection, No no pedal edema and No calf tenderness Psych Appearance: grossly normal Mental Status: mental status grossly normal Speech and movement: Normal speech and movement present Assessment & Plan Assessment & Plan (1) Fatigue: Code(s): R53.83 - Other fatigue Category: Medical Plan: Report of increased fatigue and some shortness of breath with exertion in the l ast 2 weeks. He does not appear fluid overloaded on exam. Pulse is regular on examination, clinically in sinus rhythm. Recent cardiac testing reviewed, and he has normal EF and no significant coronary artery disease. He says he sleeps with his CPAP mask each night but does take it off at times. Reviewed that he has severe sleep apnea and should wear his mask throughout each night. This may be contributing to his symptom. Instructed to call if he has increasing symptoms. For now offered reassurance that his symptom is likely noncardiac in nature. . (2) Afib: Code(s): I48.91 - Unspecified atrial fibrillation Category: Medical Qualifiers: Atrial fibrillation type: paroxysmal Qualified Code(s): I48.0 - Paroxysmal atrial fibrillation Plan: [facility] ER evaluation 02/07/2025 with finding of paroxysmal atrial fibrillation, following a cruise where he had increased alcohol intake. He was put on diltiazem CD 120 mg daily at that time and has since run out. Chads Vasc score 1, he was not put on anticoagulation. No recurrent heart palpitations or Apple watch notifications of AFib since that time. Holter monitor done 03/25/2025 for 5 days showed sinus rhythm with average heart rate 94, 39% heart rate over 100, Rare ectopy. Echocardiogram done 03/25/2025 showed EF 55-60%, normal valves, atria normal size. A CTA of the coronary arteries was done on 02/15/2023 and showed only minimal plaque, no significant stenosis, RCA dominant. On last visit he was started on metoprolol XL 25 mg daily. At this time he is now on both diltiazem and metoprolol and reports some lightheadedness. Will have him stop metoprolol. Since his pulse rate is mildly elevated will increase diltiazem dose to 180 mg daily. Instructed to call if he has recurrent AFib. ED care if needed. Cardiology follow-up 6 months, sooner if needed. (3) Essential hypertension: Code(s): I10 - Essential (primary) hypertension Category: Medical Plan: Blood pressure goal less than 130/80. On low side today. Reviewed good hydration. Stopping metoprolol. Increasing diltiazem. (4) Pure hypercholesterolemia: Code(s): E78.00 - Pure hypercholesterolemia, unspecified Category: Medical Plan: [place] LDL goal less than 100, will be less than 70 if he has full diagnosis of diabetes. Labs 02/11/2025 showed LDL 89. Continue statin therapy. Followed by his PCP Plan We discussed the patient's symptoms of fatigue and shortness of breath, emphasizing the importance of consistent CPAP use and monitoring for atrial fibrillation. I explained that recent cardiac evaluations showed no significant issues, and we adjusted the medication regimen to better manage symptoms. A follow-up visit is scheduled in six months, with instructions to return sooner if symptoms worsen. Medications: New diltiazem HCl CD (Cardizem CD) 180 mg PO DAILY 30 caps 5RF Patient Instructions: - Use CPAP machine every night for at least four hours. - Monitor for symptoms of atrial fibrillation and report any irregular heartbeats. - Follow the adjusted medication regimen as discussed. - Schedule a follow-up appointment in six months or sooner if symptoms worsen. Patient was informed and verbally consented to the use of an ambient scribe for clinic note documentation during this visit. Visit time spent on chart review, interview, assessment, orders, documentation. Coding Level of Care Code Est Pt Level 4 (68065) Complex EM visit Add On G2211 Diagnoses Fatigue R53.83 Paroxysmal atrial fibrillation I48.0 Atrial fibrillation type: paroxysmal Essential hypertension I10 Pure hypercholesterolemia E78.00 Time Spent (min) 30
--- OUTSIDE RECORDS SUMMARY | 2025-07-05 10:05 | XMS_ITS | Patient Health Record ---
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 and [facility] [address] [place] [address] [phone] [id number] Johann Vasquez Self - patient is [...]
--- OUTSIDE RECORDS SUMMARY | 2025-07-05 10:06 | XMS_ITS | Patient Health Record ---
Author Organization [facility] Address [address] [place] [address] Care Team Providers Care Mailing Specialist Name Role Phone Jeison Lackey Jaycee [phone] Reason For Referral No Information Plan Of Treatment No Information
== END 2025-07-05 09:15 | disposition home or self-care (01) ==
PROVIDERS: PCP Internal Medicine; Visit Provider Nurse Practitioner Family
DX: R53.83 Other fatigue (principal); I48.0 Paroxysmal atrial fibrillation; I10 Essential (primary) hypertension; E78.00 Pure hypercholesterolemia, unspecified
CPT/HCPCS: 99214

== ENCOUNTER 2025-07-14 15:00 | Outpatient (AMB) | payer BC, SELFPAY ==
[2025-07-14 15:09] VITALS: BP 110/76; PULSE 104; TEMP 36.3; O2SAT 97; BMI 30.7
--- NOTE | 2025-07-14 15:09 | A.OFFPC_ITS ---
Vital Signs 07/14/25 15:09 Height 5 ft 6 in Weight 190 lb 4 oz BMI 30.7 BP 110/76 Blood Pressure Location Lt brachial Position Sitting Pulse 104 H Pulse Source Pulse Oximeter Temp 97.3 F Temp Source Temporal Artery Scan Pulse Oximetry (%) 97 Oxygen Delivery Method Room Air Intake Visit Reasons: 4mt f/u Allergies No Known Allergies Allergy (Verified 07/14/25 15:27) Medication List - Last Reconciled 07/14/25 by Tucker Negron MD diltiazem HCl CD (Cardizem CD) 180 mg PO DAILY gabapentin 200 mg PO BEDTIME PRN lisinopril 2.5 mg PO DAILY 90 days meclizine 50 mg (2 x 25 mg) PO DAILY PRN meloxicam 15 mg PO DAILY PRN pantoprazole 40 mg PO ONCE PRN simvastatin 40 mg PO BEDTIME tamsulosin 0.4 mg PO BEDTIME zolpidem 10 mg PO BEDTIME PRN 30 days Tobacco use date assessed: 07/14/25 Dental Screening Dental Screen Date: 07/14/25 Did you have a dental visit in the last 12 months?: Yes Did you have a dental problem in the last 6 months where you did not have access to dental care?: No Was dental information given to patient?: Patient has dentist HPI [facility] f/u HPI Details Patient comes in today for his follow up visit States that he has been feeling unusually fatigued for the past couple of months States that he is still using his CPAP device when he is sleeping at night but does not feel that it is helping as well as it used to as he often wakes up still feeling tired irregardless of how long he has slept He was also seen at the walk-in clinic in [place] about 2 weeks ago for recurrent dizziness - was prescribed some Meclizine and instructed to follow up with his PCP He was then seen in the office here 3 days later for the same complaints and was referred to PT for canalith positioning and to ENT for further evaluation and management He is currently still waiting for these appointments to be scheduled States that he is presently experiencing recurrent dizziness, right ear pressure and discomfort, persistent ringing and decreased hearing in his right ear He denies any headaches; denies any fever or sore throat Denies any chest pains, no increased SOB No nausea/vomiting, no abdominal pain No change in bowel habits noted PFSH Medical History Paroxysmal atrial fibrillation Obstructive sleep apnea Lumbar spondylosis Acid reflux Benign prostatic hyperplasia with urinary obstruction Carpal tunnel syndrome on both sides Overweight (BMI 25.0-29.9) Primary insomnia Paresthesia of both hands Vitamin D deficiency Cervical disc disease Renal calculi Asymptomatic microscopic hematuria Pancreatic cyst Impaired fasting glucose Pure hypercholesterolemia Essential hypertension Surgical History H/O colonoscopy History of esophagogastroduodenoscopy (EGD) Tonsillar cyst Status post excision of lipoma History of surgery on right wrist Family History Father Myocardial infarction Diabetes Hypertension Mother Hypertension Brother Hypertension Social History Housing: House Are you a primary child care to a significant other at home: No Do you presently have visiting nurse or other home services: No Alcohol intake: current Alcohol intake frequency: holidays/special occasions only Patient Tobacco Use Status: Former Tobacco user Tobacco use type: Cigarette Years Smoked: 20 +/- e-Cigarette/Vaping Use: Never Used Second Hand Smoke Exposure: Yes service: No Current occupational status: employed 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 1. Little interest or pleasure in doing things: not at all 2. Feeling down, depressed, or hopeless: not at all 3. Trouble falling or staying asleep, or sleeping too much: several days 4. Feeling tired or having little energy: several days 5. Poor appetite or overeating: not at all 6. Feeling bad about yourself - or that you are a failure or have let yourself or your family down: not at all 7. Trouble concentrating on things, such as reading the newspaper or watching television: not at all 8. Moving or speaking so slowly that other people could have noticed. Or the opposite - being so fidgety or restless that you have been moving around a lot more than usual: not at all 9. Thoughts that you would be better off or of hurting yourself in some way: not at all Total score: 2 Depression Screening Interpretation: Negative Depression Screening Done: Yes 05862 - PHQ-9 Billing: Yes Source: Developed by Drs. Jeison Plummer, Greer Carl, Zana Saini and colleagues, with an educational saloni from [employer]. Thrive Questionnaire Date Thrive assessed: 02/14/25 I am a: Patient What is your living situation today?: I have a steady place to live Within the past 12 months, did the food you bought not last and you didn't have the money to get more?: Never true Within the past 12 months, did you worry whether your food would run out before you got money to buy more?: Never true Do you have trouble paying for medicines?: No Do you have trouble getting transportation to medical appointments?: No Do you have trouble paying your heating and electricity bill?: No Do you have trouble taking care of your child, family member or friend?: No Do you have trouble with day-to-day activities such as bathing, preparing meals, shopping, managing finances, etc.?: No Are you currently unemployed and looking for a job?: No Are you interested in more education?: No Please select the resources that you would like help with: None Currently or been in a relationship where the following occur: No concerns reported THRIVE Score: 0 AUDIT C Alcohol Use Questionnaire (AUDIT-C) 1. How often do you have a drink containing alcohol?: 2-4 times a month 2. How many drinks containing alcohol do you have on a typical day when you are drinking?: 1 or 2 3. How often do you have six or more drinks on one occasion?: Never Total Score: 2 Score Reviewed/Action Taken: Yes TRUNG-7 AMB Questionnaire TRUNG-7 Date TRUNG - 7 assessed: 03/10/25 Feeling nervous, anxious, or on edge: 1 = Several days Not being able to stop or control worryin = Not at all Worrying too much about different things: 1 = Several days Trouble relaxin = Several days Being so restless that it is hard to sit still: 1 = Several days Becoming easily annoyed or irritable: 0 = Not at all Feeling afraid as if something awful might happen: 0 = Not at all Total TRUNG-7 score (0-4 normal; 5-9 mild; 10-14 moderate; 15-21 severe): 4 Source: Developed by Drs. Jeison Plummer, Greer Carl, Zana Saini and colleagues, with an educational saloni from [employer]. Review of Systems Const Denies chills, Denies difficulty sleeping, Reports fatigue (increased lately), Denies fever(s) and Denies headache(s) ENT Denies dysphagia, Reports dizziness (on and off), Denies otalgia (but increased R ear pressure and discomfort), Denies headache(s), Reports hearing loss (in the R ear), Denies neck pain, Denies odynophagia, Reports tinnitus (persistent, in the R ear) and Denies sore throat Card Denies chest pain, Denies rapid heart rate, Denies irregular heart rhythm (no recurrence since last month), Denies palpitations and Denies dyspnea Resp Denies chest congestion, Denies cough and Denies dyspnea GI Denies abdominal pain, Denies constipation, Denies dysphagia, Denies heartburn, Denies diarrhea, Denies nausea, Denies odynophagia and Denies vomiting Denies difficulty urinating, Denies dysuria, Denies urinary frequency and Denies urinary urgency Musc Reports back pain (increased over the lower back ), Denies arthralgias, Denies neck pain and Reports radiating pain into limb (into R leg at times) Skin/Breast Denies rash Neuro Reports dizziness (on and off), Denies headache(s) and Denies paresthesias Endo Reports fatigue (increased lately) and Denies palpitations Physical exam (Primary Care) Vital Signs: Last Vital Signs Temp 97.3 F 07/14/25 15:09 Pulse 104 H 07/14/25 15:09 BP 110/76 07/14/25 15:09 Pulse Ox 97 07/14/25 15:09 Oxygen Delivery Method Room Air 07/14/25 15:09 BMI result Body Mass Index 30.7 Tobacco/Smoking Status: Tobacco use Status Tobacco use date assessed 07/14/25 07/14/25 15:13 Patient Tobacco Use Status Former Tobacco user 07/14/25 15:13 Tobacco use type Cigarette 07/14/25 15:13 e-Cigarette/Vaping Use Never Used 07/14/25 15:13 PHQ-9: PHQ-9 Score PHQ-9: Total score 2 07/15/25 04:21 Depression Screening Interpretation: Negative Thrive Assessment: Date of Thrive Assessment Date Thrive assessed 02/14/25 07/14/25 15:13 Currently or been in a relationship where the following occur: No concerns reported Const General: no acute distress and alert HENMT Ears: TM's normal bilaterally and EAC's normal Throat: Yes posterior oropharynx normal and Yes tonsils normal Neck Neck: Yes supple and No lymphadenopathy Thyroid: Thyroid normal Resp Auscultation: clear to auscultation bilaterally, no rales and no wheezes Cardio Rate: regular rate Rhythm: regular rhythm Heart sounds: no murmurs GI Palpation (GI): Soft to palpation and nontender Auscultation: normal bowel sounds General: Yes no CVA tenderness Back/Spine/Pelvis Back: no CVA tenderness Thoracic/Lumbar Spine: paraspinal muscle tenderness bilaterally in the mid lumbar and in the lower lumbar and lumbar spinal tenderness Skin Rashes: no rashes Extrem General: Yes no clubbing, cyanosis or edema Results Reviewed Results Reviewed: Laboratory Tests 07/01/25 14:33 WBC 7.4 Hgb 15.7 Hct 44.9 Plt Count 221 Sodium 140 Potassium 3.9 Creatinine 0.67 Estimated GFR > 60 Random Glucose 141 H Calcium 8.9 Magnesium 2.2 AST 24 ALT 31 Coding Level of Care Code Est Pt Level 4 (59315) Diagnoses Dizziness R42 Hearing loss of right ear, unspecified hearing loss type H91.91 Hearing loss type: unspecified Tinnitus of right ear H93.11 Laterality: right Paroxysmal atrial fibrillation I48.0 Essential hypertension I10 Pure hypercholesterolemia E78.00 Impaired fasting glucose R73.01 Pancreatic cyst K86.2 Lesion of right cantwell kidney N28.9 Obstructive sleep apnea G47.33 Right foot pain M79.671 Lumbar spondylosis M47.816 Cervical disc disease M50.90 Vitamin D deficiency E55.9 Benign prostatic hyperplasia with urinary obstruction N40.1; N13.8 Renal calculi N20.0 Primary insomnia F51.01 Overweight (BMI 25.0-29.9) E66.3 Additional Codes PHQ-9 - 29586 - PHQ-9 Billing: Yes ([id number]) Assessment & Plan Assessment & Plan (1) Dizziness: Code(s): R42 - Dizziness and giddiness Category: Medical Plan: Patient has been referred to physical therapy for canalith positioning and he is still waiting for an appointment to be scheduled for him (2) Hearing loss in right ear: Code(s): H91.91 - Unspecified hearing loss, right ear Category: Medical Qualifiers: Hearing loss type: unspecified Qualified Code(s): H91.91 - Unspecified hearing loss, right ear Plan: Will refer him to ENT for further evaluation and management (3) Tinnitus: Code(s): H93.19 - Tinnitus, unspecified ear Category: Medical Qualifiers: Laterality: right Qualified Code(s): H93.11 - Tinnitus, right ear Plan: Patient is advised that this is likely due to hearing loss and he will be referred to ENT for further evaluation and management (4) Paroxysmal atrial fibrillation: Code(s): I48.0 - Paroxysmal atrial fibrillation Category: Medical Plan: Patient went to the ER at [facility] a few months ago for palpitations; his smart watch alerted him that he was reportedly in atrial fibrillation at the time of his symptoms Work ups done at the ER all came back normal and EKG done at the time revealed sinus rhythm Patient was started on Diltiazem CD 120 mg QD As his CHADsVasc score was = 1, he was not started on any anticoagulation CTA of the coronary arteries done on 02/15/2023 showed only minimal plaque, no significant stenosis, RCA dominant Patient states that he has not had any recurrence of his symptoms since his ER visit He was seen by cardiology for evaluation a few montha ago Echocardiogram done back in March 2025 came back normal Extended Holter monitor back then came out normal as well - sinus thythm with an average rate of 94/Min. About 39% of the time, rate over 100/min; .rare supraventricular ectopy and rare ventricular ectopy, with no significant pauses or high-grade AV blocks (5) Essential hypertension: Code(s): I10 - Essential (primary) hypertension Category: Medical Plan: Reinforced low-sodium diet -? goal is systolic BP of 120 mm or less Continue Lisinopril 2.5 mg QD Patient is reminded to continue monitoring his blood pressure regularly (6) Pure hypercholesterolemia: Code(s): E78.00 - Pure hypercholesterolemia, unspecified Category: Medical Plan: His coronary artery CT scan done on 02/15/2023 showed only minimal plaque with no significant stenosis, RCA dominant, vessel normal He was not able to get his follow up labs done prior to coming in for hia appt today Reinforced low cholesterol diet Continue Simvastatin 40 mg QD Will recheck his labs and fasting lipids in 4 months for follow up (7) Impaired fasting glucose: Code(s): R73.01 - Impaired fasting glucose Category: Medical Plan: His HgbA1c was normal at 5.7% and 5.8% when previously checked back in 2022 and again earlier this year Reinforced low calorie diet /exercise as tolerated (8) Pancreatic cyst: Code(s): K86.2 - Cyst of pancreas Category: Medical Plan: Patient had a 1.3 cm hypodense lesion along the proximal body of the pancreas that was initially seen incidentally on his abdominal and pelvic CT done on 09/13/2019 that raised suspicions of a small cystic lesion and further workups with MRI/ MRCP was recommended at the time He had an abdominal MRI done in September 2019 that suggested an intraductal papillary mucinous tumor and recommended a follow up MRI with and without contrast in 6-12 months? Repeat MRI done in January 2022 showed a stable 6 x 10 mm cyst in the head of the pancreas from previous exams; the pancreas is otherwise normal and the main pancreatic duct is normal? Patient is currently asymptomatic and has no acute GI symptoms Per his request, he was sent for a repeat abdominal US at his last visit to ensure stability of his pancreatic cyst - US done in August 2024 revealed that the pancreas was not well visualized and was obscured by bowel gas; (+) hypoechoic area in the liver is probably focal fat sparing. Echogenic lesion in the right kidney 6 mm could be a cortical stone versus angiomyolipoma. recommend correlation with follow-up ultrasound in 6 months. There was also a small cyst in the spleen at around 8 mm in size Repeat right renal US was not done as patient just had another abdominal CT done at the ER a couple of months ago (9) Lesion of right cantwell kidney: Code(s): N28.9 - Disorder of kidney and ureter, unspecified Category: Medical Plan: (+) echogenic right kidney lesion seen on abdominal US in August 2024 and recommend 6 months follow up - will now send patient for follow up US He was referred to urology for further evaluation and management and was seen by Dr. Bar a couple of months ago and was recommended onservation for now with repeat US ordered in 12 months for follow up (10) Obstructive sleep apnea: Code(s): G47.33 - Obstructive sleep apnea (adult) (pediatric) Category: Medical Plan: Continue using his CPAP device when sleeping at night He is currently using Autopap at 6 to 16 cm H2O when sleeping at night and is benefitting from its nightly use Follow up with Sleep Medicine as scheduled (11) Right foot pain: Code(s): M79.671 - Pain in right foot Category: Medical Plan: Follow up with podiatry as scheduled (12) Lumbar spondylosis: Code(s): M47.816 - Spondylosis without myelopathy or radiculopathy, lumbar region Category: Medical Plan: Lumbar spine x-rays done back in 2012 revealed (+) mild spondylosis Reinforced activity and weight-lifting restrictions Continue Methocarbamol 750 mg BID PRN We referred him to pain management for further recommendations and interventions to help control his recently increasing pain over his lower back but he has not been seen yet (13) Cervical disc disease: Code(s): M50.90 - Cervical disc disorder, unspecified, unspecified cervical region Category: Medical Plan: Cervical spine x-rays done a few years ago (2019) showed (+)? multilevel cervical disc disease Continue Methocarbamol PRN (14) Vitamin D deficiency: Code(s): E55.9 - Vitamin D deficiency, unspecified Category: Medical Plan: Continue Vitamin D3 1000 units QD (15) Benign prostatic hyperplasia with urinary obstruction: Code(s): N40.1 - Benign prostatic hyperplasia with lower urinary tract symptoms; N13.8 - Other obstructive and reflux uropathy Category: Medical Plan: Continue Tamsulosin 0.4 mg Q HS Follow up with urology as scheduled (16) Renal calculi: Code(s): N20.0 - Calculus of kidney Category: Medical Plan: Asymptomatic Renal US done in March 2019 showed (+)? bilateral non-obstructing renal calculi Follow-up with urology as scheduled (17) Primary insomnia: Code(s): F51.01 - Primary insomnia Category: Medical Plan: Sleep hygiene reinforced Continue Zolpidem 10 mg Q HS PRN (18) Overweight (BMI 25.0-29.9): Code(s): E66.3 - Overweight Category: Medical Plan: Reinforced diet/exercise as tolerated/lose weight Plan Follow up in 4 months Orders: Orders Complete Blood Count Auto Diff 4 Months D64.9 - Anemia, unspecified Lipid Panel 4 Months E78.00 - Pure hypercholesterolemia, unspecified UA CC w/rflx Micro + Cult 4 Months R30.0 - Dysuria Comprehensive [place]. Panel Fast 4 Months E78.00 - Pure hypercholesterolemia, unspecified TSH reflex Free T4 4 Months E78.00 - Pure hypercholesterolemia, unspecified Vitamin B12 and Folate 4 Months E53.8 - Deficiency of other specified B group vitamins Vitamin D 25-OH Total 4 Months E55.9 - Vitamin D deficiency, unspecified Referrals Ear/Nose/Throat Referral H91.91 - Unspecified hearing loss, right ear, H93.19 - Tinnitus, unspecified ear, H93.8X1 - Other specified disorders of right ear
== END 2025-07-14 15:42 | disposition home or self-care (01) ==
LOC: HO.HMCH 15:01
PROVIDERS: PCP Internal Medicine; Visit Provider Internal Medicine
DX: R42 Dizziness and giddiness (principal); H91.91 Unspecified hearing loss, right ear; H93.11 Tinnitus, right ear; I48.0 Paroxysmal atrial fibrillation; I10 Essential (primary) hypertension; E78.00 Pure hypercholesterolemia, unspecified; R73.01 Impaired fasting glucose; K86.2 Cyst of pancreas; N28.9 Disorder of kidney and ureter, unspecified; G47.33 Obstructive sleep apnea (adult) (pediatric); M79.671 Pain in right foot; M47.816 Spondylosis without myelopathy or radiculopathy, lumbar region; M50.90 Cervical disc disorder, unspecified, unspecified cervical region; E55.9 Vitamin D deficiency, unspecified; N40.1 Benign prostatic hyperplasia with lower urinary tract symptoms; N13.8 Other obstructive and reflux uropathy; N20.0 Calculus of kidney; F51.01 Primary insomnia; E66.3 Overweight

== ENCOUNTER → 2025-07-14 15:00 | Outpatient (BNVA) | payer BC, SELFPAY | PROVIDERS: PCP Internal Medicine; Visit Provider Internal Medicine | DX: H93.11 Tinnitus, right ear (principal); H91.91 Unspecified hearing loss, right ear; I48.0 Paroxysmal atrial fibrillation; I10 Essential (primary) hypertension; E78.00 Pure hypercholesterolemia, unspecified; R73.01 Impaired fasting glucose; K86.2 Cyst of pancreas; G47.33 Obstructive sleep apnea (adult) (pediatric); N28.9 Disorder of kidney and ureter, unspecified; M79.671 Pain in right foot; M47.816 Spondylosis without myelopathy or radiculopathy, lumbar region; M50.90 Cervical disc disorder, unspecified, unspecified cervical region; E55.9 Vitamin D deficiency, unspecified; N40.1 Benign prostatic hyperplasia with lower urinary tract symptoms; N13.8 Other obstructive and reflux uropathy; N20.0 Calculus of kidney; F51.01 Primary insomnia; E66.3 Overweight; D64.9 Anemia, unspecified; R30.0 Dysuria; E53.8 Deficiency of other specified B group vitamins; Z68.30 Body mass index [BMI] 30.0-30.9, adult; Z99.89 Dependence on other enabling machines and devices | CPT/HCPCS: 96127 ==